=== PATIENT | female | born 1950 | race Caucasian/White ===

== ENCOUNTER 2016-12-06 15:19 | Outpatient (CLI) | payer MEDICARE, OTHER | END 2016-12-06 15:20 | disposition critical access hospital (66) | LOC: EMS 15:19 | PROVIDERS: ATTEND Surgery | DX: R53.1 Weakness (principal) | CPT/HCPCS: A0425; A0429 ==

== ENCOUNTER 2016-12-06 15:31 | Emergency (ER) | payer MEDICARE, OTHER ==
--- NOTE | 2016-12-06 15:40 | ED Physician Documentation ---
PD HPI FOCAL NEURO - Stated complaint Stated Complaint: STROKE - Chief complaint Chief Complaint: Neuro - History obtained from History obtained from: Patient, Family (Spoke with by phone at 12:04pm, was ok then. Pt states sx started 2pm. Aphasic with R sided defecits.) - Additional information Additional information: No headache or pain Review of Systems Unable to obtain: Confused PD PAST MEDICAL HISTORY - Past Medical History Cardiovascular: None Neuro: None Endocrine/Autoimmune: None GI: C.difficile, Diverticulitis : Chronic bladder infection Musculoskeletal: Chronic back pain - Past Surgical History Past Surgical History: No General: Bowel surgery - Present Medications Home Medications: Ambulatory Orders Medication Instructions Recorded Confirmed Acetaminophen 650 mg PO BID 11/08/15 11/08/15 Eszopiclone [Lunesta] 3 mg PO DAILY 11/08/15 11/08/15 Naproxen 375 mg PO BID #20 tablet 11/08/15 Ondansetron HCl [Zofran] 4 mg PO Q6H PRN #20 tablet 11/08/15 Oxycodone HCl/Acetaminophen 1 each PO Q6H PRN #20 tablet 11/08/15 [Percocet 5-325 mg Tablet] - Allergies Allergies/Adverse Reactions: Allergies Allergy/AdvReac Type Severity Reaction Status Date / Time No Known Drug Allergies Allergy Verified 11/08/15 17:14 - Social History Does the pt smoke?: No Smoking Status: Former smoker Does the pt have substance abuse?: No - Immunizations Immunizations are current?: Yes PD ED PE NORMAL - Vitals Vital signs reviewed: Yes - General General: Other (Mostly aphasic, but reliable with yes/no answers.) - HEENT HEENT: PERRL, EOMI - Neck Neck: Supple, no meningeal sign, No bony TTP - Cardiac Cardiac: RRR, No murmur - Respiratory Respiratory: No respiratory distress, Clear bilaterally - Derm Derm: Normal color, Warm and dry - Extremities Extremities: No edema, No calf tenderness / cord NIHSS - Time Time: 15:35 - Level of Consciousness Level of consciousness: (0) Alert, Keenly responsive LOC Questions: (0) Answers both Q's correct LOC Commands: (0) Performs both correctly - Gaze Best Gaze: (0) Normal - Visual Visual: (0) No loss - Facial Palsy Facial Palsy: (2) Partial paralysis - Motor Arms (both separate) Motor Arm (right): (4) No movement Motor Arm (left): (0) No drift - Motor Legs (both separate) Motor Leg (right): (1) Drift Motor Leg (left): (0) No drift - Limb Ataxia Limb Ataxia: (0) Absent - Sensory Sensory: (0) Normal - Best Language Best Language: (2) Severe aphasia - Dysarthria Dysarthria: (1) Kpiv-au-kwoqxvbb dysarthria - Extinction and Inattention (formally neg Extinction and inattention: (0) No abnormality - Total Score/Results Total Score/Result: 10 Results - Vitals Vitals: Vital Signs - 24 hr 12/06/16 12/06/16 15:31 16:15 Temperature 36.6 C Heart Rate 87 77 Respiratory 16 12 Rate Blood Pressure 133/88 H 112/81 H O2 Saturation 98 96 Oxygen O2 Source Room air - EKG (time done) 1553 Rate: Rate (enter#) (79) Rhythm: NSR [place]: LAD Intervals: Prolonged [place] Ischemia: Non specific changes Computer interpretation: Agree with computer - Labs Labs: Laboratory Tests 12/06/16 12/06/16 12/06/16 15:25 15:25 15:25 WBC 8.8 RBC 4.65 Hgb 14.0 Hct 41.1 MCV 88.4 MCH 30.2 MCHC 34.2 RDW 12.6 Plt Count 247 MPV 7.3 L Neut # 6.0 Lymph # 1.8 [place] # 0.8 Eos # 0.1 Baso # 0.1 Absolute Nucleated RBC 0.00 Nucleated RBCs 0.0 PT 11.4 INR 1.0 Sodium 139 Potassium 3.5 Chloride 107 Carbon Dioxide 25 Anion Gap 7.0 BUN 25 H Creatinine 0.5 Estimated GFR (MDRD) 123 Glucose 123 H Calcium 9.0 Total Bilirubin 0.2 AST 18 ALT 15 Alkaline Phosphatase 99 Total Protein 7.0 Albumin 3.9 Globulin 3.1 Albumin/Globulin Ratio 1.3 Lipase 24 - Rads (name of study) CT Head Radiology: Prelim report reviewed (NAD, no bleed) 1v chest Radiology: EMP read contemporaneously (normal) CT Angio Head/neck Radiology: Prelim report reviewed PD MEDICAL DECISION MAKING - ED course ED course: Patient was seen 2 and attended to immediately at bedside, she appears to have a stroke in her initial CAT scan was read as without intracranial hemorrhage. Dr. Griffin, [place] stroke was consulted and after discussion of risks and benefits the patient's nodded her head and the consented for TPA, bolus was given at [address] Griffin was considering making this patient a code IR patients and she will go back for CT angiogram of the neck. - Critical Care Time(min): 40 Time Includes: Direct patient care, Review records, Reassess patient, Document care, Coordinate care, Medical consult, Family consult for tx dec Data interpretation: Labs, Pulse ox Procedures included in critical care time: Peripheral IV Procedures excluded from critical care time: EKG Departure - Departure Disposition: 02 Transfer Acute Care Hosp Discharge Date/Time: 12/06/16 17:03
[2016-12-06] MEDS ORDERED: ALTEPLASE 100 MG in WATER FOR INJECTION,STERILE 100 ML IV STA (15:43)
[2016-12-06] MEDS ORDERED: ALTEPLASE 100 MG VIAL IV STA (15:54)
[2016-12-06] MEDS ORDERED: WATER FOR INJECTION STERILE IV STA (15:55)
[2016-12-06] MEDS ORDERED: ALTEPLASE IV STA (15:55)
[2016-12-06 16:00] LABS: BASOPHILS # (AUTO) 0.1 10^3/uL (0.0-0.1); BASOPHILS % (AUTO) 0.9 %; EOSINOPHILS # (AUTO) 0.1 10^3/uL (0.0-0.7); EOSINOPHILS % (AUTO) 1.1 %; HCT - HEMATOCRIT 41.1 % (37.0-47.0); LYMPHOCYTES # (AUTO) 1.8 10^3/uL (1.5-3.5); LYMPHOCYTES % (AUTO) 20.3 %; MEAN CORPUSCULAR HEMOGLOBIN 30.2 pg (27.0-31.0); MEAN CORPUSCULAR HGB CONC 34.2 g/dL (32.0-36.0); MEAN CORPUSCULAR VOLUME 88.4 fL (81.0-99.0); MEAN PLATELET VOLUME 7.3 fL (7.9-10.8); MONOCYTES # (AUTO) 0.8 10^3/uL (0.0-1.0); MONOCYTES % (AUTO) 9.3 %; NEUTROPHILS % (AUTO) 68.4 %; RED BLOOD COUNT 4.65 10^6/uL (4.20-5.40); RED CELL DISTRIBUTION WIDTH 12.6 % (12.0-15.0); UNCORRECTED WHITE BLOOD COUNT 8.8 x10^3/uL; WHITE BLOOD COUNT 8.8 x10^3/uL (4.8-10.8)
[2016-12-06 16:07] LABS: ALBUMIN/GLOBULIN RATIO 1.3 (1.0-2.2); BILIRUBIN,TOTAL 0.2 mg/dL (0.2-1.0); CREATININE 0.5 mg/dL (0.4-1.0); POTASSIUM 3.5 mmol/L (3.5-5.0)
--- NOTE | 2016-12-06 16:07 | CT Preliminary Report ---
Exam: CT Head W/O Stroke Protocol Impression: 1. There is no acute intracranial abnormality. 2. There is unchanged mild to moderate chronic small vessel ischemia. 3. 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 The above findings were discussed with Dr. Zuly Griffin by Dr. Rayo at 4:03 PM on 12/06/2016. SITE ID: [id number]
[2016-12-06 16:14] LABS: PT - PROTHROMBIN TIME 11.4 secs (9.9-12.6)
[2016-12-06 16:15] VITALS: BP 112/81
--- NOTE | 2016-12-06 16:16 | CT Report ---
EXAM: CT HEAD EXAM DATE: 12/06/2016 03:46 PM. CLINICAL HISTORY: Right-sided facial droop. COMPARISON: CT scan of the head without contrast 02/17/2013. TECHNIQUE: Multiaxial CT images were obtained from the foramen magnum to the vertex. IV contrast: Non e. Reformats: Coronal. In accordance with CT protocol optimization, one or more of the following dose reduction techniques w ere utilized for this exam: automated exposure control, adjustment of mA and/or KV based on patient s ize, or use of iterative reconstructive technique. FINDINGS: The paranasal sinuses are normally aerated. There is minimal fluid density within a few mastoid air c ells. There is no evidence of acute fracture of the calvarium. There is periventricular, subcortical, and deep white matter hypodensity. There is an old lacunar inf arction of the left thalamus. There is no acute collection of blood or blood products, or mass. There is no midline shift. Mcelroy-white differentiation remains distinct. There is periventricular, subcortical and deep white matter hypodensities again demonstrated within t he bilateral frontal lobes. IMPRESSION: 1. There is no acute intracranial abnormality. 2. There is unchanged mild to moderate chronic small vessel ischemia. 3. 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 The above findings from this critical test were discussed with Dr. Zuly Griffin by Dr. Rayo at the 4: 30 PM on 12/06/2016. Referring Provider Line: [phone] SITE ID: [id number]
[2016-12-06] MEDS ORDERED: IOPAMIDOL-300 100 ML VIAL IVP ONE (16:32)
--- NOTE | 2016-12-06 16:33 | XRAY Preliminary Report ---
Exam: XR Chest 1 View IMPRESSION: Normal single view chest. [facility] SITE ID: [id number]
--- NOTE | 2016-12-06 16:35 | XRAY Report ---
EXAM: CHEST RADIOGRAPHY EXAM DATE: 12/06/2016 03:48 PM. CLINICAL HISTORY: CVA. COMPARISON: None. TECHNIQUE: 1 view. FINDINGS: Lungs/Pleura: No focal opacities evident. No large pleural effusion. No pneumothorax. Mediastinum: Within exam limitations, cardiomediastinal contour is normal. Other: No bony abnormality. IMPRESSION: Normal single view chest. [facility] Referring Provider Line: [phone] SITE ID: [id number]
--- NOTE | 2016-12-06 17:19 | CT Preliminary Report ---
Exam: CT Head Angio Impression: Noncontrast CT head: 1. No acute findings, multifocal periventricular white matter disease, minimal calcific atherosclerot ic disease. New areas of subacute ischemic stroke can be missed upon old ischemic disease. Consider M RI brain if symptoms persist. Postcontrast CT head: 1. Negative. CT angiogram head: 1. Left ICA: Patent with small focal mid distal left M1 branch luminal irregularity without significa nt narrowing. This could represent small residual of prior clot post TPA. Left MCA, LEONCIO distribution otherwise patent. 2. Otherwise patent major arteries of the brain, with normal anatomical variability as described. No aneurysm, dissection, stenosis, AVM. 3. Patent major veins. CT angiogram neck: 1. Widely patent bilateral carotid, vertebral arteries. No aneurysm, dissection, stenosis, AVM 2. Multilevel advanced mid and lower cervical spine spondylosis, no suspicious bony lesions. 3. Asymmetrical enlargement left thyroid lobe 4.5 cm, with mixed density 2.6 cm nodule within the sup erior pole, can be further evaluated by ultrasound. No surrounding inflammatory change, or suspicious adenopathy. Critical findings: Findings discussed immediately with Dr. Griffin by phone on 12/06/2016 at 1658 hr s. [facility] SITE ID: [id number]
--- NOTE | 2016-12-06 17:22 | CT Report ---
REVISED: THIS REPORT WAS ORIGINALLY SIGNED ON 12/06/2016 @ 1658. ORDERS LINKED ON 12/13/2016. EXAM: CT ANGIOGRAM HEAD AND NECK EXAM DATE: 12/06/2016 04:33 PM. CLINICAL HISTORY: CVA. COMPARISON: None. TECHNIQUE: Routine axial helical CTA imaging was performed from the aortic arch through the [place] of [place]. Iodinated IV contrast: 100 cc Isovue-300. Reconstructions: Routine multiplanar 3D MIP reconstructions. NASCET Criteria are used for stenosis measurements. In accordance with CT protocol optimization, one or more of the following dose reduction techniques were utilized for this exam: automated exposure control, adjustment of mA and/or KV based on patient size, or use of iterative reconstructive technique. Findings: Relevant images are indicated (image number, series number). Noncontrast CT head: No hemorrhage, mass or midline shift. Multifocal hypodensities present bilateral internal capsule white matter, with at least moderate scattered periventricular white matter disease present. No significant cortical atrophy, ventricles are not dilated. No acute arterial thrombosis of the major intracranial arteries. Basal cisterns are patent. Orbital contents negative. Paranasal sinuses, mastoid air cells are clear. Trivial intracranial calcific atherosclerotic disease. Calvarium intact, no suspicious bony lesions. Postcontrast CT head: No abnormal enhancement of the brain, meninges. CT angiogram head: Left ICA: Patent to the terminus, small focal luminal irregularity present mid distal left M1 branch (484, 6), with no significant stenosis, otherwise patent MCA, LEONCIO distribution. Right ICA: Patent. Patent MCA, patent LEONCIO distribution. Posterior circulation: Patent distal bilateral vertebral arteries, basilar artery, patent bilateral [employer] distribution with a prominent left posterior communicating artery, minimal left P1 segment from the basilar artery. There is a small right posterior communicating artery present. Patent major draining veins, dominant right transverse venous sinus. CT antrum neck: Aortic arch is patent, normal configuration of the great vessels, no ostial stenosis. Left carotid artery: Widely patent. Right carotid artery: Widely patent. Left vertebral artery: Proximal tortuosity, widely patent. Right vertebral artery: Proximal tortuosity, widely patent. Limited evaluation lung apices are clear. Thyroid demonstrates mild asymmetrical enlargement maximum dimension 4.5 cm, with a complex mixed density nodule within the superior lobe measuring 2.6 cm. There is no surrounding suspicious adenopathy. Airway otherwise unremarkable. There is multilevel mid and lower cervical spine spondylosis, no suspicious bony lesions. The patient is partially edentulous without apical cyst. Impression: Noncontrast CT head: 1. No acute findings, multifocal periventricular white matter disease, minimal calcific atherosclerotic disease. New areas of subacute ischemic stroke can be missed upon old ischemic disease. Consider MRI brain if symptoms persist. Postcontrast CT head: 1. Negative. CT angiogram head: 1. Left ICA: Patent with small focal mid distal left M1 branch luminal irregularity without significant narrowing. This could represent small residual of prior clot post TPA. Left MCA, LEONCIO distribution otherwise patent. 2. Otherwise patent major arteries of the brain, with normal anatomical variability as described. No aneurysm, dissection, stenosis, AVM. 3. Patent major veins. CT angiogram neck: 1. Widely patent bilateral carotid, vertebral arteries. No aneurysm, dissection , stenosis, AVM 2. Multilevel advanced mid and lower cervical spine spondylosis, no suspicious bony lesions. 3. Asymmetrical enlargement left thyroid lobe 4.5 cm, with mixed density 2.6 cm nodule within the superior pole, can be further evaluated by ultrasound. No surrounding inflammatory change, or suspicious adenopathy. Critical findings: Findings discussed immediately with Dr. Griffin by phone on 12/06/2016 at 1658 hrs. [facility] Referring Provider Line: [phone] SITE ID: [id number]
== END 2016-12-06 17:03 | disposition short-term general hospital (02) ==
LOC: EDUNIT# → ED 15:31
DX: I63.9 Cerebral infarction, unspecified (principal); R47.01 Aphasia; Z87.891 Personal history of nicotine dependence
CPT/HCPCS: 36415; 70450; 70496; 70498; 71010; 80053; 83690; 85025; 85610; 93005; 96374; 96376; 99291; J2997; Q9967; 99285

== ENCOUNTER 2017-01-30 13:13 | Emergency (ER) | payer MEDICARE, OTHER ==
[2017-01-30 13:20] VITALS: BP 130/82
--- NOTE | 2017-01-30 14:52 | XRAY Preliminary Report ---
Exam: XR KNEE 4 VIEW RT IMPRESSION: Mild to moderate medial compartment chronic degenerative disease without acute fracture o r subluxation. [facility] SITE ID: [id number]
--- NOTE | 2017-01-30 14:55 | XRAY Report ---
EXAM: RIGHT KNEE RADIOGRAPHY EXAM DATE: 01/30/2017 02:30 PM. CLINICAL HISTORY: Glf, pain. COMPARISON: None. TECHNIQUE: 4 views. FINDINGS: Bones: There is mild to moderate spurring and degenerative disease of the medial compartment of the r ight knee. There is no fracture. Joints: No subluxation or dislocation. No joint effusion. There is minimal medial compartment joint s pace narrowing. Soft Tissues: Normal. No soft tissue swelling. IMPRESSION: Mild to moderate medial compartment chronic degenerative disease without acute fracture o r subluxation. [facility] Referring Provider Line: [phone] SITE ID: [id number]
--- NOTE | 2017-01-30 15:55 | ED Physician Documentation ---
PD HPI LOWER EXT INJURY - Stated complaint Stated Complaint: R KNEE INJ - Chief complaint Chief Complaint: Ext Problem - History obtained from History obtained from: Patient, Family - History of Present Illness PD HPI LOW EXT INJURY LOCATION: Right, Knee Type of injury: Fall Where injury occurred: Street Timing - onset: Yesterday Timing - duration: Days (1) Timing - details: Abrupt onset, Still present Improved by: Rest, Ice, Immobilization Worsened by: Moving, Palpating Associated symptoms: Swelling, Discolored Similar symptoms before: Has not had sx before Recently seen: Other (The patient has had 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 She is continuing to recover.) - Additional information Additional information: 66-year-old female recovering from a stroke in November has had improvement in her ability to walk and yesterday she [facility]. This is a walk she would normally have made frequently prior to her stroke and this is the first attempt she is made to do this since her stroke. She nearly made it home when she fell injuring her right knee. She does feel unstable on the knee when she is up and around but she is able to bear weight and walk. Review of Systems Constitutional: denies: Fever Nose: denies: Congestion Throat: denies: Sore throat Cardiac: denies: Chest pain / pressure Respiratory: denies: Dyspnea, Cough GI: denies: Abdominal Pain, Nausea, Vomiting : denies: Dysuria, Frequency Skin: denies: Rash Musculoskeletal: reports: Extremity pain, Joint pain, Joint swelling, Pain with weight bearing. denies: Neck pain, Back pain Neurologic: denies: Generalized weakness, Focal weakness, Numbness PD PAST MEDICAL HISTORY - Past Medical History Past Medical History: Yes Cardiovascular: None Neuro: TIA Endocrine/Autoimmune: None GI: C.difficile, Diverticulitis : Chronic bladder infection Musculoskeletal: Chronic back pain - Past Surgical History Past Surgical History: No General: Bowel surgery - Present Medications Home Medications: Ambulatory Orders Medication Instructions Recorded Confirmed Aspirin 81 mg PO DAILY 01/30/17 01/30/17 Atorvastatin [Lipitor] 20 mg PO DAILY 01/30/17 01/30/17 Zolpidem [Ambien] 5 mg PO DAILY PM 01/30/17 01/30/17 - Allergies Allergies/Adverse Reactions: Allergies Allergy/AdvReac Type Severity Reaction Status Date / Time No Known Drug Allergies Allergy Verified 01/30/17 14:45 - Social History Does the pt smoke?: No Smoking Status: Former smoker Does the pt drink ETOH?: No Does the pt have substance abuse?: No - Immunizations Immunizations are current?: Yes - POLST Patient has POLST: Yes PD ED PE NORMAL - Vitals Vital signs reviewed: Yes (tachy and hypertensive ) - General General: No acute distress, Well developed/nourished - HEENT HEENT: Atraumatic, PERRL, EOMI - Neck Neck: Supple, no meningeal sign - Respiratory Respiratory: No respiratory distress - Derm Derm: Normal color, Warm and dry, No rash - Extremities Extremities: Other (There is a fair amount of swelling and ecchymosis to the right knee. There is abrasion and the wounds appear clean. The knee is swollen and there is no restriction to flex/extend. The anterior drawer is negative but the medial collateral ligament appears violated on testing. There is clear opening and a clunk for an endpoint. Distal N/V is intact. ) - Neuro Neuro: Other (She has mild dysarthria and minimal right sided weakness in the upper ext. ) - Psych Psych: Normal mood, Normal affect Results - Vitals Vitals: Vital Signs - 24 hr 01/30/17 13:17 Temperature 37.0 C Heart Rate 108 H Respiratory 18 Rate Blood Pressure 130/82 H O2 Saturation 97 Oxygen O2 Source Room air - Rads (name of study) right knee Radiology: Prelim report reviewed (Impression: Mild to moderate medial compartment chronic degenerative disease without acute fracture or subluxation.) , EMP read indepedently, See rad report Procedures - Splint (location) l knee Splint applied by: Tech Type of splint: Other (Knee immobilizer) Other: Patient tolerated well, No complications, Neurovascular intact, Good alignment PD MEDICAL DECISION MAKING - ED course Complexity details: reviewed old records, reviewed results, re-evaluated patient , considered differential, d/w patient, d/w family ED course: 66-year-old female with recovering from stroke has had a fall injuring her right knee she appears to have medial collateral ligament avulsion. She has a lot of swelling in the she is placed into a knee immobilizer and we have asked her follow-up with orthopedic. Departure - Departure Disposition: 01 Home, Self Care Clinical Impression: Knee MCL sprain Qualifiers: Encounter type: initial encounter Laterality: right Qualified Code(s): S83.411A - Sprain of medial collateral ligament of right knee, initial encounter Condition: Stable Instructions: ED Sprain Knee Collateral Ligaments Follow-Up: RIMMA COLLINS [Primary Care Provider] - [facility] [Provider Group]
== END 2017-01-30 16:15 | disposition home or self-care (01) ==
LOC: ED 13:13
DX: S83.411A Sprain of medial collateral ligament of right knee, initial encounter (principal); W01.0XXA Fall on same level from slipping, tripping and stumbling without subsequent striking against object, initial encounter; Y93.01 Activity, walking, marching and hiking; Y92.410 Unspecified street and highway as the place of occurrence of the external cause; Z86.73 Personal history of transient ischemic attack (TIA), and cerebral infarction without residual deficits; Z87.891 Personal history of nicotine dependence; Z79.82 Long term (current) use of aspirin
CPT/HCPCS: 99283

== ENCOUNTER 2017-02-07 13:48 | Emergency (ER) | payer MEDICARE, OTHER ==
[2017-02-07 13:52] VITALS: BP 131/75
--- NOTE | 2017-02-07 14:11 | ED Physician Documentation ---
PD HPI LOWER EXT INJURY - Stated complaint Stated Complaint: WOUND CHECK - Chief complaint Chief Complaint: Ext Problem - History obtained from History obtained from: Patient, Family - History of Present Illness PD HPI LOW EXT INJURY LOCATION: Right, Knee Type of injury: Fall Where injury occurred: Street Timing - onset: How many days ago (8) Timing - duration: Days (8) Timing - details: Abrupt onset, Still present Improved by: Rest Worsened by: Moving, Palpating Associated symptoms: Swelling. No: Weakness, Numbness Similar symptoms before: Diagnosis (abrasion) Recently seen: Clinic (shalondak in clinic 3 days ago for wound care), Emergency Dept (66-year-old female Was seen in the emergency department 8 days ago after a fall and abrasion of her knee.) - Additional information Additional information: 66-year-old female has had an CVA in November of this year and received TPA she has been recovering from her stroke. 8 days ago she had a fall in the street while walking to her home and she sustained an abrasion to her knees worse on the right than the left and she sprained her right medial collateral ligament. She has developed increasing pain and redness to the knee abrasion. She did go in to be seen at a walk-in clinic over the weekend and symptoms have progressed since then. Review of Systems Constitutional: denies: Fever Respiratory: denies: Cough GI: denies: Vomiting : denies: Dysuria Skin: reports: Abrasion (s). denies: Rash Musculoskeletal: reports: Extremity pain, Joint pain, Joint swelling, Pain with weight bearing. denies: Neck pain, Back pain PD PAST MEDICAL HISTORY - Past Medical History Cardiovascular: None Neuro: TIA Endocrine/Autoimmune: None GI: C.difficile, Diverticulitis : Chronic bladder infection Musculoskeletal: Chronic back pain - Past Surgical History Past Surgical History: No General: Bowel surgery - Present Medications Home Medications: Ambulatory Orders Medication Instructions Recorded Confirmed Aspirin 81 mg PO DAILY 01/30/17 02/07/17 Atorvastatin [Lipitor] 20 mg PO DAILY 01/30/17 02/07/17 Zolpidem [Ambien] 5 mg PO DAILY PM 01/30/17 02/07/17 Sulfamethoxazole/Trimethoprim 1 each PO BID #14 tablet 02/07/17 [Sulfamethoxazole-Tmp Ds Tablet] - Allergies Allergies/Adverse Reactions: Allergies Allergy/AdvReac Type Severity Reaction Status Date / Time No Known Drug Allergies Allergy Verified 01/30/17 14:45 - Social History Does the pt smoke?: No Smoking Status: Former smoker Does the pt drink ETOH?: No Does the pt have substance abuse?: No - Immunizations Immunizations are current?: Yes - POLST Patient has POLST: Yes PD ED PE NORMAL - Vitals Vital signs reviewed: Yes (hypertensive) - General General: No acute distress, Well developed/nourished - HEENT HEENT: Atraumatic, PERRL - Respiratory Respiratory: No respiratory distress - Derm Derm: Normal color, Warm and dry - Extremities Extremities: No deformity, Other (There is a deep abrasion to the right knee over the patella and there is surrounding erythema, swelling and tenderness. There is no drainage from the wound. There is granulation tissue across a 4cm round abrasion. distal N/V intact. ) - Neuro Neuro: No motor deficit, No sensory deficit - Psych Psych: Normal mood, Normal affect Results - Vitals Vitals: Vital Signs - 24 hr 02/07/17 13:50 Temperature 36.7 C Heart Rate 63 Respiratory 16 Rate Blood Pressure 131/75 H O2 Saturation 98 Oxygen O2 Source Room air PD MEDICAL DECISION MAKING - ED course Complexity details: reviewed old records, considered differential, d/w patient, d/w family ED course: 66-year-old female with a deep abrasion to her knee that appears to be superficially infected circumferentially. We will put her on some Septra and expect improvement. I have encouraged her to return to the emergency department should she have any progression of symptoms from where this is today. Departure - Departure Disposition: 01 Home, Self Care Clinical Impression: Infected abrasion of right knee Qualifiers: Encounter type: initial encounter Qualified Code(s): S80.211A - Abrasion, right knee, initial encounter; L08.9 - Local infection of the skin and subcutaneous tissue, unspecified Condition: Stable Instructions: ED Wound Care, ED Abrasion Follow-Up: RIMMA COLLINS [Primary Care Provider] - Prescriptions: Sulfamethoxazole/Trimethoprim [Sulfamethoxazole-Tmp Ds Tablet] 1 each PO BID # 14 tablet
--- NOTE | 2017-02-09 16:07 | ED Physician Documentation ---
ED Addendum - Addendum Addendum: 02/09/17 16:07 called in, she is having a blotchy rash on her legs and concerned that this may be from the antibiotic. Advised coming in for recheck.
== END 2017-02-07 14:23 | disposition home or self-care (01) ==
LOC: ED 13:48
DX: S80.211A Abrasion, right knee, initial encounter (principal); W19.XXXA Unspecified fall, initial encounter; Y92.410 Unspecified street and highway as the place of occurrence of the external cause; R21 Rash and other nonspecific skin eruption; Z87.891 Personal history of nicotine dependence; Z86.73 Personal history of transient ischemic attack (TIA), and cerebral infarction without residual deficits
CPT/HCPCS: 99283

== ENCOUNTER 2017-02-09 16:37 | Emergency (ER) | payer MEDICARE, OTHER ==
[2017-02-09 16:50] VITALS: BP 121/87
--- NOTE | 2017-02-09 16:54 | ED Physician Documentation ---
PD HPI WOUND RECHECK - Stated complaint Stated Complaint: RASH - Chief complaint Chief Complaint: Wound - Histroy obtained from History obtained from: Patient, Family - History of Present Illness Location: Other (She scraped her right knee and was placed on sulfa 2 days ago, today developed several blotches of rash on the legs, one of them is itchy but she has no respiratory complaints. She feels like the actual area of infection is somewhat improved and she denies fever or limited range of motion.) Review of Systems Constitutional: denies: Fever, Chills Nose: denies: Rhinorrhea / runny nose, Congestion Respiratory: denies: Dyspnea, Cough GI: denies: Abdominal Pain, Nausea, Vomiting PD PAST MEDICAL HISTORY - Past Medical History Past Medical History: Yes Cardiovascular: None Neuro: CVA, TIA Endocrine/Autoimmune: None GI: C.difficile, Diverticulitis : Chronic bladder infection Musculoskeletal: Chronic back pain - Past Surgical History Past Surgical History: No General: Bowel surgery - Present Medications Home Medications: Ambulatory Orders Medication Instructions Recorded Confirmed Aspirin 81 mg PO DAILY 01/30/17 02/07/17 Atorvastatin [Lipitor] 20 mg PO DAILY 01/30/17 02/07/17 Zolpidem [Ambien] 5 mg PO DAILY PM 01/30/17 02/07/17 Sulfamethoxazole/Trimethoprim 1 each PO BID #14 tablet 02/07/17 [Sulfamethoxazole-Tmp Ds Tablet] Cephalexin [Keflex] 500 mg PO QID #30 capsule 02/09/17 - Allergies Allergies/Adverse Reactions: Allergies Allergy/AdvReac Type Severity Reaction Status Date / Time No Known Drug Allergies Allergy Verified 01/30/17 14:45 - Social History Does the pt smoke?: No Smoking Status: Former smoker Does the pt drink ETOH?: No Does the pt have substance abuse?: No - Immunizations Immunizations are current?: Yes - POLST Patient has POLST: Yes PD ED PE NORMAL - Vitals Vital signs reviewed: Yes - General General: Alert and oriented X 3, No acute distress - Extremities Extremities: Other (Healing scrapes over the right knee with mild cellulitis surrounding it, there is no significant bursal fluid and no limited range of motion. She has a few discrete hives, one on the medial left knee, one on the posterior left thigh, and one above the right knee medially.) - Neuro Neuro: Alert and oriented X 3, Normal speech - Psych Psych: Normal mood, Normal affect Results - Vitals Vitals: Vital Signs - 24 hr 02/09/17 16:47 Temperature 36.6 C Heart Rate 69 Respiratory 16 Rate Blood Pressure 121/87 H O2 Saturation 100 Oxygen O2 Source Room air Departure - Departure Disposition: 01 Home, Self Care Clinical Impression: Adverse reaction to sulfa antibiotic Infected abrasion of right knee Qualifiers: Encounter type: initial encounter Qualified Code(s): S80.211A - Abrasion, right knee, initial encounter Condition: Good Record reviewed to determine appropriate education?: Yes Instructions: ED Infec Skin Cellulitis Prescriptions: Cephalexin [Keflex] 500 mg PO QID #30 capsule Comments: Stop the sulfa antibiotic. Return if worse. Otherwise follow-up with your doctor on Sunday or Sunday. Your blood pressure was elevated today on check into the emergency department. This does not mean that you have hypertension, it is a common phenomenon to come to the emergency department and have elevated blood pressure. I recommend that she see her primary care physician within the week to have it rechecked when you are feeling better.
== END 2017-02-09 17:00 | disposition home or self-care (01) ==
LOC: ED 16:37
DX: S80.211A Abrasion, right knee, initial encounter (principal); L27.1 Localized skin eruption due to drugs and medicaments taken internally; T37.0X5A Adverse effect of sulfonamides, initial encounter; W19.XXXA Unspecified fall, initial encounter; R03.0 Elevated blood-pressure reading, without diagnosis of hypertension; Z86.73 Personal history of transient ischemic attack (TIA), and cerebral infarction without residual deficits; Z87.440 Personal history of urinary (tract) infections; Z87.891 Personal history of nicotine dependence; Z79.82 Long term (current) use of aspirin
CPT/HCPCS: 99283

== ENCOUNTER 2017-03-03 08:32 | Emergency (ER) | payer MEDICARE, OTHER ==
[2017-03-03 08:41] VITALS: BP 128/84
[2017-03-03] MEDS ORDERED: DEXAMETHASONE 10 MG/ML VIAL PO STA (08:59)
--- NOTE | 2017-03-03 09:09 | ED Physician Documentation ---
History of Present Illness - Stated complaint Stated Complaint: R ARM PX - Chief complaint Chief Complaint: Ext Problem - History obtained from History obtained from: Patient, Family - History of Present Illness Timing: How many weeks ago (1) - Additonal information Additional information: 66-year-old female who has had a CVA and received TPA in November of this year has developed right shoulder pain and restriction of movement following her stroke. She has been in physical therapy with this and has some swelling in her right hand as well. She indicates that over the past week she has had an increase in her pain and inability to move the shoulder and an increase in the pain in her hand as well. The only other symptom she is having is a cough. She has had a cough for about a week as well. She indicates that the swelling in her right hand preceded her stroke. I do see in her medical record that she had a CVA in 2012 that involved the thalamus and old lacunar infarct and this is suspected to be the etiology for some hand numbness that happened at that time. Review of Systems Constitutional: denies: Fever Eyes: denies: Decreased vision Ears: denies: Ear pain Nose: reports: Congestion Throat: denies: Sore throat Cardiac: denies: Chest pain / pressure, Palpitations Respiratory: reports: Cough. denies: Dyspnea GI: denies: Nausea, Vomiting, Constipation, Diarrhea : denies: Dysuria, Frequency Skin: denies: Rash Musculoskeletal: reports: Extremity pain, Joint pain, Extremity swelling. denies: Neck pain, Back pain Neurologic: denies: Generalized weakness PD PAST MEDICAL HISTORY - Past Medical History Cardiovascular: None Neuro: CVA, TIA Endocrine/Autoimmune: None GI: C.difficile, Diverticulitis : Chronic bladder infection Musculoskeletal: Chronic back pain - Past Surgical History Past Surgical History: No General: Bowel surgery - Present Medications Home Medications: Ambulatory Orders Medication Instructions Recorded Confirmed Aspirin 81 mg PO DAILY 01/30/17 03/03/17 Atorvastatin [Lipitor] 20 mg PO DAILY 01/30/17 03/03/17 Zolpidem [Ambien] 5 mg PO DAILY PM 01/30/17 03/03/17 Azithromycin [Zithromax] 250 mg PO DAILY #6 tablet 03/03/17 Gabapentin 300 mg PO TID 03/03/17 03/03/17 - Allergies Allergies/Adverse Reactions: Allergies Allergy/AdvReac Type Severity Reaction Status Date / Time No Known Drug Allergies Allergy Verified 01/30/17 14:45 - Social History Does the pt smoke?: No Smoking Status: Former smoker Does the pt drink ETOH?: No Does the pt have substance abuse?: No - Immunizations Immunizations are current?: Yes - POLST Patient has POLST: Yes PD ED PE NORMAL - Vitals Vital signs reviewed: Yes (hypertensive ) - General General: No acute distress, Well developed/nourished, Other (speech is further improved from last visit in January. ) - HEENT HEENT: Atraumatic, PERRL, EOMI, Other (There is inflamation in both TM's in the attic worse on the right than the left. ) - Neck Neck: Supple, no meningeal sign, No bony TTP, No adenopathy - Cardiac Cardiac: RRR, No murmur - Respiratory Respiratory: No respiratory distress, Clear bilaterally - Derm Derm: Normal color, Warm and dry, No rash - Extremities Extremities: No deformity, Other (There is mild general swelling to the right hand. Tapping on the median nerve does not illicit pain or odd sensation. The wirst and elbow are with full ROM without restriction. The paitent is able to hold the shoulder in abduction but she is not able to actively move the shoulder into full extension. ) - Neuro Neuro: Alert and oriented X 3 - Psych Psych: Normal mood, Normal affect Results - Vitals Vitals: Vital Signs - 24 hr 03/03/17 08:35 Temperature 36.7 C Heart Rate 84 Respiratory 16 Rate Blood Pressure 128/84 H O2 Saturation 98 Oxygen O2 Source Room air PD MEDICAL DECISION MAKING - ED course Complexity details: reviewed old records, reviewed results, re-evaluated patient , considered differential, d/w patient, d/w family ED course: 66-year-old female 3 months status post CVA has right shoulder pain that is worse than her usual. She has had pain in this right shoulder or months but this is worse this week than normal. The pain in her hand is worse than normal as well. Her only other symptom is a cough. On examination she has otitis media. Here in the emergency department she is given dexamethasone orally and we will place her on some antibiotic. I suspect that her increase in pain is a result of the inflammatory process related to the infection. I also suspect her swelling in her hand that preceded her stroke is related to a prior stroke and related to central nerve damage sustained in a stroke in 2013. I have indicated to the patient and her that this is the suspected reason for the increase in pain and treatment will be palliative and we have referred her to ortho for further treatment on her shoulder. Departure - Departure Disposition: 01 Home, Self Care Clinical Impression: Bursitis Qualifiers: Bursitis location: shoulder Laterality: right Qualified Code(s): M75.51 - Bursitis of right shoulder Otitis media Qualifiers: Otitis media type: suppurative Chronicity: acute Laterality: bilateral Recurrence: not specified as recurrent Spontaneous tympanic membrane rupture: without spontaneous rupture Qualified Code(s): H66.003 - Acute suppurative otitis media without spontaneous rupture of ear drum, bilateral Condition: Stable Instructions: ED Otitis Media Acute Adult, ED Bursitis Follow-Up: RIMMA COLLINS [Primary Care Provider] - [facility] [Provider Group] Prescriptions: Azithromycin [Zithromax] 250 mg PO DAILY #6 tablet
[2017-03-03] MEDS ORDERED: DEXAMETHASONE 10 MG/ML VIAL ONE (09:11)
[2017-03-03] MEDS ORDERED: CHERRY SYRUP 10 ML UDC PO ONE (09:12)
== END 2017-03-03 09:20 | disposition home or self-care (01) ==
LOC: ED 08:32
DX: M75.51 Bursitis of right shoulder (principal); H66.003 Acute suppurative otitis media without spontaneous rupture of ear drum, bilateral; Z86.73 Personal history of transient ischemic attack (TIA), and cerebral infarction without residual deficits; Z79.82 Long term (current) use of aspirin; Z87.891 Personal history of nicotine dependence
CPT/HCPCS: 99283; 99284; A9270

== ENCOUNTER 2018-01-14 07:58 | Emergency (ER) | payer MEDICARE, OTHER ==
[2018-01-14 08:55] LABS: BILIRUBIN,URINE NEGATIVE (NEGATIVE); GLUCOSE, URINE (UA) NEGATIVE (NEGATIVE); KETONES,URINE (UA) NEGATIVE (NEGATIVE); LEUKOCYTE ESTERASE, URINE SMALL (NEGATIVE); NITRITE,URINE NEGATIVE (NEGATIVE); OCCULT BLOOD,URINE NEGATIVE (NEGATIVE); PROTEIN,URINE NEGATIVE (NEGATIVE); UROBILINOGEN,URINE 0.2 (NORMAL) E.U./dL (NORMAL)
[2018-01-14 08:58] LABS: CLARITY,URINE HAZY (CLEAR)
[2018-01-14 09:04] LABS: BACTERIA,URINE Few /HPF (None Seen); RBC,URINE 0-5 /HPF (0-5); SQUAMOUS EPITHELIAL CELL,UR FEW Squamous (<= Few); WBC CLUMPS,URINE PRESENT
--- NOTE | 2018-01-14 09:32 | ED Physician Documentation ---
History of Present Illness - Stated complaint Stated Complaint: FEMALE - Chief complaint Chief Complaint: UTI - Additonal information Additional information: hx from pt 67 f dysuria no fever, no chills, no NV, mild flank pain seen at [facility] and rx macrobid for 5 days and not any better Review of Systems Constitutional: denies: Fever, Chills GI: denies: Nausea, Vomiting : reports: Dysuria Musculoskeletal: reports: Back pain Immunocompromised: denies: Immunocompromised PD PAST MEDICAL HISTORY - Past Medical History Cardiovascular: None Endocrine/Autoimmune: None GI: C.difficile, Diverticulitis : Chronic bladder infection Musculoskeletal: Chronic back pain - Past Surgical History Past Surgical History: Yes General: Bowel surgery - Present Medications Home Medications: Ambulatory Orders Medication Instructions Recorded Confirmed Aspirin 81 mg PO DAILY 01/30/17 03/03/17 Atorvastatin [Lipitor] 20 mg PO DAILY 01/30/17 03/03/17 Zolpidem [Ambien] 5 mg PO DAILY PM 01/30/17 03/03/17 Azithromycin [Zithromax] 250 mg PO DAILY #6 tablet 03/03/17 Gabapentin 300 mg PO TID 03/03/17 03/03/17 Cephalexin [Keflex] 500 mg PO Q6H #28 capsule 01/14/18 - Allergies Allergies/Adverse Reactions: Allergies Allergy/AdvReac Type Severity Reaction Status Date / Time No Known Drug Allergies Allergy Verified 01/14/18 08:17 - Social History Does the pt smoke?: No Smoking Status: Never smoker Does the pt drink ETOH?: No Does the pt have substance abuse?: No - Immunizations Immunizations are current?: Yes - POLST Patient has POLST: Yes PD ED PE NORMAL - Vitals Vital signs reviewed: Yes - General General: Alert and oriented X 3 - HEENT HEENT: PERRL - Neck Neck: Supple, no meningeal sign - Cardiac Cardiac: RRR - Respiratory Respiratory: No respiratory distress, Clear bilaterally - Abdomen Abdomen: Soft, Non tender - Back Back: No CVA TTP - Derm Derm: Normal color - Neuro Neuro: Alert and oriented X 3 Results - Vitals Vitals: Vital Signs - 24 hr 01/14/18 08:12 Temperature 36.4 C L Heart Rate 72 Respiratory 16 Rate Blood Pressure 115/74 O2 Saturation 98 Oxygen O2 Source Room air - Labs Labs: Laboratory Tests 01/14/18 08:43 Urine Color YELLOW Urine Clarity HAZY Urine pH 6.0 Ur Specific [place] 1.010 Urine Protein NEGATIVE Urine Glucose (UA) NEGATIVE Urine Ketones NEGATIVE Urine Occult Blood NEGATIVE Urine Nitrite NEGATIVE Urine Bilirubin NEGATIVE Urine Urobilinogen 0.2 (NORMAL) Ur Leukocyte Esterase SMALL H Urine RBC 0-5 Urine WBC >25 H Urine WBC Clumps PRESENT Ur Squamous Epith Cells FEW Squamous Urine Bacteria Few Ur Microscopic Review INDICATED Urine Culture Comments INDICATED PD MEDICAL DECISION MAKING - ED course ED course: called [facility] lab for micro results - they requested fax for relase of info - I transferred lab back to [facility] to arrnage that - [facility] states [facility] lab hung up will give rocephin and rx keflex and have pt call her PMD for follow up - Sepsis Event Vital Signs: Vital Signs - 24 hr 01/14/18 08:12 Temperature 36.4 C L Heart Rate 72 Respiratory 16 Rate Blood Pressure 115/74 O2 Saturation 98 Oxygen O2 Source Room air Departure - Departure Disposition: 01 Home, Self Care Clinical Impression: Urinary tract infection Qualifiers: Urinary tract infection type: acute cystitis Hematuria presence: without hematuria Qualified Code(s): N30.00 - Acute cystitis without hematuria Condition: Good Instructions: Urinary Tract Infecs Women Follow-Up: RIMMA COLLINS [Primary Care Provider] - Prescriptions: Cephalexin [Keflex] 500 mg PO Q6H #28 capsule Comments: Please call your PMD at [facility] to ask if a urine culture was done and if the antibiotic I prescribed will treat the bacteria causing your infection. Follow up with your PMD for a repeat urine test to be sure the infection has cleared. Return if worse
[2018-01-14] MEDS ORDERED: cefTRIAXone 1 GM VIAL IM STA (09:41)
[2018-01-14] MEDS ORDERED: LIDOCAINE 1% 2 ML VIAL SUBQ ONE (09:41)
[2018-01-14 10:32] VITALS: BP 126/77
== END 2018-01-14 10:31 | disposition home or self-care (01) ==
LOC: ED 07:58
DX: N30.00 Acute cystitis without hematuria (principal); Z79.82 Long term (current) use of aspirin
CPT/HCPCS: 81001; 81003; 87086; 87181; 96372; 99283

== ENCOUNTER 2018-07-29 09:42 | Emergency (ER) | payer MEDICARE, OTHER ==
--- NOTE | 2018-07-29 10:45 | XRAY Report ---
Reason: SOA Procedure Date: 07/29/2018 Accession Number: [id number] / [id number] Procedure: XR - Chest 1 View X-Ray CPT Code: 85315 FULL RESULT: EXAM: CHEST RADIOGRAPHY EXAM DATE: 07/29/2018 10:24 AM. CLINICAL HISTORY: Shortness of breath. COMPARISON: CHEST 1 VIEW 12/06/2016 3:41 PM. TECHNIQUE: 1 view. FINDINGS: Lungs/Pleura: No focal opacities evident. No pleural effusion. No pneumothorax. Mediastinum: Within exam limitations, the cardiomediastinal contour is normal. There is mild atherosclerotic calcification of the aortic arch. Other: No acute osseous abnormality. IMPRESSION: No acute cardiopulmonary abnormality. RADIA
--- NOTE | 2018-07-29 10:52 | ED Physician Documentation ---
PD HPI DYSPNEA - Stated complaint Stated Complaint: SOA - Chief complaint Chief Complaint: Resp - History obtained from History obtained from: Patient - History of Present Illness Timing - onset: How many days ago (2-3) Timing - onset during: Rest, Light activity Timing - duration: Minutes Timing - details: Gradual onset, Waxing and waning Inciting event(s): No: Out of meds (but had stopped her fluoxetine 2-3 weeks ago as she did not feel she needed it anymore.) Associated symptoms: Chest pain / discomfort. No: Fever, Cough, Wheezing, Bilateral edema Similar symptoms before: Diagnosis (anxiety) Recently seen: Not recently seen Review of Systems Constitutional: denies: Fever, Chills, Myalgias Nose: denies: Rhinorrhea / runny nose, Congestion Throat: denies: Sore throat Cardiac: reports: Chest pain / pressure. denies: Palpitations, Pedal edema, Calf pain Respiratory: reports: Dyspnea. denies: Cough, Wheezing GI: denies: Abdominal Pain, Nausea, Vomiting, Diarrhea Skin: denies: Rash, Lesions PD PAST MEDICAL HISTORY - Past Medical History Cardiovascular: None Respiratory: None Neuro: None Endocrine/Autoimmune: None GI: C.difficile, Diverticulitis : Chronic bladder infection Psych: Depression, Anxiety Musculoskeletal: Chronic back pain - Past Surgical History Past Surgical History: Yes General: Bowel surgery - Present Medications Home Medications: Ambulatory Orders Medication Instructions Recorded Confirmed Aspirin 81 mg PO DAILY 01/30/17 07/29/18 Atorvastatin [Lipitor] 20 mg PO DAILY 01/30/17 07/29/18 Zolpidem [Ambien] 5 mg PO DAILY PM 01/30/17 07/29/18 Gabapentin 300 mg PO TID 03/03/17 07/29/18 Lorazepam [Ativan] 1 mg PO BID PRN #10 tablet 07/29/18 Naproxen 375 mg PO BID #20 tablet 07/29/18 Nitrofurantoin [Macrobid] 100 mg PO DAILY 07/29/18 07/29/18 - Allergies Allergies/Adverse Reactions: Allergies Allergy/AdvReac Type Severity Reaction Status Date / Time No Known Drug Allergies Allergy Verified 07/29/18 09:49 - Social History Does the pt smoke?: No Smoking Status: Never smoker Does the pt drink ETOH?: No Does the pt have substance abuse?: No - Immunizations Immunizations are current?: Yes - POLST Patient has POLST: Yes PD ED PE NORMAL - Vitals Vital signs reviewed: Yes - General General: Alert and oriented X 3, No acute distress, Well developed/nourished - HEENT HEENT: Moist mucous membranes, Pharynx benign - Neck Neck: Supple, no meningeal sign, No adenopathy - Cardiac Cardiac: RRR, No murmur - Respiratory Respiratory: Clear bilaterally - Abdomen Abdomen: Soft, Non distended, No organomegaly, Other (tender epigastric and RUQ area without guarding nor percussion tenderness. ) - Back Back: No CVA TTP - Derm Derm: Normal color, Warm and dry - Extremities Extremities: No tenderness to palpate, Normal ROM s pain, No edema, No calf tenderness / cord - Neuro Neuro: Alert and oriented X 3, No motor deficit, Normal speech - Psych Psych: Normal mood. No: Normal affect (somewhat anxious) Results - Vitals Vitals: Oxygen O2 Source Room air - EKG (time done) 10:01 Rate: Rate (enter#) (79) Rhythm: NSR [place]: Normal Intervals: Normal MS QRS: Normal Ischemia: Normal ST segments. No: ST elevation c/w ischemia, ST depression - Labs Labs: Laboratory Tests 07/29/18 07/29/18 07/29/18 11:15 11:15 11:15 WBC 6.5 RBC 4.95 Hgb 14.9 Hct 43.6 MCV 88.0 MCH 30.1 MCHC 34.2 RDW 13.0 Plt Count 263 MPV 7.6 L Neut # (Auto) 3.3 Lymph # (Auto) 2.4 [place] # (Auto) 0.6 Eos # (Auto) 0.1 Baso # (Auto) 0.1 Absolute Nucleated RBC 0.01 Nucleated RBC % 0.1 Sodium 138 Potassium 3.8 Chloride 105 Carbon Dioxide 26 Anion Gap 7.0 BUN 20 Creatinine 0.7 Estimated GFR (MDRD) 83 L Glucose 96 Calcium 9.7 Magnesium 2.1 Total Bilirubin 0.7 AST 20 ALT 16 Alkaline Phosphatase 91 Troponin I < 0.04 B-Natriuretic Peptide Total Protein 7.4 Albumin 4.5 Globulin 3.1 Albumin/Globulin Ratio 1.5 Lipase 43 07/29/18 11:45 WBC RBC Hgb Hct MCV MCH MCHC RDW Plt Count MPV Neut # (Auto) Lymph # (Auto) [place] # (Auto) Eos # (Auto) Baso # (Auto) Absolute Nucleated RBC Nucleated RBC % Sodium Potassium Chloride Carbon Dioxide Anion Gap BUN Creatinine Estimated GFR (MDRD) Glucose Calcium Magnesium Total Bilirubin AST ALT Alkaline Phosphatase Troponin I B-Natriuretic Peptide 35 Total Protein Albumin Globulin Albumin/Globulin Ratio Lipase - Rads (name of study) chest xray Radiology: Prelim report reviewed (no acute prcoess), EMP read contemporaneously, See rad report PD MEDICAL DECISION MAKING - ED course Complexity details: considered differential, d/w patient, d/w family (, who feels it might be anxiety related, and patient had stopped her SSRI about 2 weeks ago. ) Departure - Departure Disposition: Home, Self Care Clinical Impression: Chest discomfort, Anxiety Condition: Stable Record reviewed to determine appropriate education?: Yes Instructions: ED Chest Pain Atypical Unkn Cause Follow-Up: RIMMA COLLINS [Primary Care Provider] - Prescriptions: Lorazepam [Ativan] 1 mg PO BID PRN #10 tablet PRN Reason: Anxiety Naproxen 375 mg PO BID #20 tablet Comments: There is no signs of more serious cause such as heart failure heart attack pneumonia etc. At this point it may be some musculoskeletal pains. You can use some naproxen twice daily with food over the next week or so. This can result due to anxiety. If you feel you are generally more anxious you can use lorazepam twice daily as needed short-term. If you are not feeling well improved over the next several days to week, follow-up with your primary care. If you feel you would doing better with the fluoxetine you had discontinued, and you could resume it daily as you had taken before. Discharge Date/Time: 07/29/18 14:14
[2018-07-29] MEDS ORDERED: MORPHINE 2 MG/ML CARPUJECT IVP STA (11:17)
[2018-07-29] MEDS ORDERED: LORazepam 2 MG/ML VIAL IVP STA (11:17)
[2018-07-29] MEDS ORDERED: MAG HYDROX/AL HYDROX/SIMETH 30 ML UDC PO STA (11:17)
[2018-07-29 11:31] LABS: BASOPHILS # (AUTO) 0.1 10^3/uL (0.0-0.1); BASOPHILS % (AUTO) 0.8 %; EOSINOPHILS # (AUTO) 0.1 10^3/uL (0.0-0.7); EOSINOPHILS % (AUTO) 1.5 %; HGB - HEMOGLOBIN 14.9 g/dL (12.0-16.0); LYMPHOCYTES # (AUTO) 2.4 10^3/uL (1.5-3.5); LYMPHOCYTES % (AUTO) 37.1 %; MEAN CORPUSCULAR HEMOGLOBIN 30.1 pg (27.0-31.0); MEAN CORPUSCULAR HGB CONC 34.2 g/dL (32.0-36.0); MEAN PLATELET VOLUME 7.6 fL (7.9-10.8); MONOCYTES # (AUTO) 0.6 10^3/uL (0.0-1.0); NEUTROPHILS # (AUTO) 3.3 10^3/uL (1.5-6.6); NEUTROPHILS % (AUTO) 50.6 %; PLT - PLATELET COUNT 263 10^3/uL (130-450); RED BLOOD COUNT 4.95 10^6/uL (4.20-5.40); WHITE BLOOD COUNT 6.5 x10^3/uL (4.8-10.8)
[2018-07-29 12:07] LABS: ALBUMIN 4.5 g/dL (3.2-5.5); ALBUMIN/GLOBULIN RATIO 1.5 (1.0-2.2); BILIRUBIN,TOTAL 0.7 mg/dL (0.2-1.0); CALCIUM 9.7 mg/dL (8.5-10.3); CREATININE 0.7 mg/dL (0.4-1.0); MAGNESIUM 2.1 mg/dL (1.7-2.8); TOTAL PROTEIN 7.4 g/dL (6.7-8.2)
--- NOTE | 2018-07-29 12:55 | Ultrasound Report ---
Reason: upper abd pain Procedure Date: 07/29/2018 Accession Number: [id number] / [id number] Procedure: US - Abdomen Limited CPT Code: FULL RESULT: EXAM: ABDOMEN ULTRASOUND LIMITED, RUQ EXAM DATE: 07/29/2018 12:34 PM. CLINICAL HISTORY: Upper abd pain. COMPARISON: ABD/PEL 06/05/2007 7:[address] KUB 11/08/2015 6:43 PM. TECHNIQUE: Real-time scanning was performed with static images obtained. FINDINGS: Liver: Normal in size and echotexture. The right lobe of the liver measures up to 13.7 cm. Main portal vein flow: Hepatopetal. Gallbladder: There is a gallbladder polyp measuring 3 x 3 x 3 mm. No stones, wall thickening, or sonographic Kim's sign. Biliary System: CBD measures 6 mm. No intrahepatic or extrahepatic ductal dilatation. Other: The pancreas and abdominal aorta are not well visualized due to overlying bowel gas. There are multiple small nonobstructing right renal calyceal calculi. No right hydronephrosis. IMPRESSION: 1. No cholelithiasis or cholecystitis. No biliary dilatation. 2. Incidentally noted 3 mm gallbladder polyp, almost certainly benign. No further workup recommended. Management above is based on recommendations outlined in an ACR White Paper: Jesse Ng et al. Managing Incidental Findings on Abdominal and Pelvic CT and MRI, Part 4: White Paper of the ACR Incidental Findings Committee II on Gallbladder and Biliary Findings. Journal of the [employer] 10, 953953 (2013). 3. Small nonobstructing calyceal calculi in the right kidney. No right hydronephrosis. RADIA
[2018-07-29 13:43] VITALS: BP 112/80
== END 2018-07-29 14:14 | disposition home or self-care (01) ==
LOC: ED 09:42
DX: R07.89 Other chest pain (principal); F41.9 Anxiety disorder, unspecified; Z79.82 Long term (current) use of aspirin
CPT/HCPCS: 36415; 71045; 76705; 80053; 83690; 83735; 83880; 84484; 85025; 93005; 96374; 96375; 99284; A9270; J2060

== ENCOUNTER 2019-07-28 11:26 | Emergency (ER) | payer MEDICARE, OTHER ==
[2019-07-28] MEDS ORDERED: MELOXICAM 7.5 MG TABLET PO STA (14:04)
--- NOTE | 2019-07-28 14:05 | ED Physician Documentation ---
History of Present Illness - Stated complaint Stated Complaint: RT LEG PX - Chief complaint Chief Complaint: Ext Problem - History obtained from History obtained from: Patient - History of Present Illness Timing: How many days ago (2) Pain level max: 5 Pain level now: 4 - Additonal information Additional information: 68-year-old female presents to the emergency department with right lower extremity pain in her calf for the past 2 days. Does not recall any injury. Worse with movement and better with rest. Took ibuprofen last night. [place] were too [place] and sent her here instead. No chest pain. No shortness of breath. No redness. No swelling. No history of blood clots. Review of Systems Constitutional: denies: Fever, Chills Cardiac: denies: Chest pain / pressure, Palpitations Respiratory: denies: Dyspnea, Cough Skin: denies: Rash Musculoskeletal: denies: Neck pain, Back pain Neurologic: denies: Headache PD PAST MEDICAL HISTORY - Past Medical History Cardiovascular: None Respiratory: None Neuro: None Endocrine/Autoimmune: None GI: C.difficile, Diverticulitis : Chronic bladder infection Psych: Depression, Anxiety Musculoskeletal: Chronic back pain Other Past Medical History: Stroke 2 years ago - Past Surgical History Past Surgical History: Yes General: Bowel surgery - Present Medications Home Medications: Ambulatory Orders Medication Instructions Recorded Confirmed Aspirin 81 mg PO DAILY 01/30/17 07/29/18 Atorvastatin [Lipitor] 20 mg PO DAILY 01/30/17 07/29/18 Zolpidem [Ambien] 5 mg PO DAILY PM 01/30/17 07/29/18 Gabapentin 300 mg PO TID 03/03/17 07/29/18 Lorazepam [Ativan] 1 mg PO BID PRN #10 tablet 07/29/18 Naproxen 375 mg PO BID #20 tablet 07/29/18 Nitrofurantoin [Macrobid] 100 mg PO DAILY 07/29/18 07/29/18 Meloxicam [Mobic] 7.5 mg PO BID PRN #20 tablet 07/28/19 - Allergies Allergies/Adverse Reactions: Allergies Allergy/AdvReac Type Severity Reaction Status Date / Time No Known Drug Allergies Allergy Verified 07/29/18 09:49 - Social History Does the pt smoke?: No Smoking Status: Never smoker Does the pt drink ETOH?: No Does the pt have substance abuse?: No - Immunizations Immunizations are current?: Yes - POLST Patient has POLST: Yes PD ED PE NORMAL - Vitals Vital signs reviewed: Yes - General General: Alert and oriented X 3, No acute distress - HEENT HEENT: Moist mucous membranes - Neck Neck: Supple, no meningeal sign - Cardiac Cardiac: RRR - Respiratory Respiratory: No respiratory distress, Clear bilaterally - Derm Derm: Warm and dry - Extremities Extremities: Other (Varicose veins over the bilateral lower extremities. Tenderness to palpation on the posterior right calf. Minimal swelling. Neurovascular intact. No skin changes.) - Neuro Neuro: Alert and oriented X 3 - Psych Psych: Normal mood, Normal affect Results - Vitals Vitals: Vital Signs - 24 hr 07/28/19 07/28/19 11:34 15:50 Temperature 36.6 C 36.8 C Heart Rate 85 71 Respiratory 18 18 Rate Blood Pressure 120/86 H 137/84 H O2 Saturation 97 97 Oxygen O2 Source Room air - Rads (name of study) Duplex ultrasound right lower extremity Radiology: Prelim report reviewed, EMP read contemporaneously, See rad report (No DVT) PD MEDICAL DECISION MAKING - ED course Complexity details: reviewed results, re-evaluated patient, considered differential, d/w patient ED course: Patient with right calf pain of unclear etiology. Likely muscular. No evidence of DVT. No evidence of bony injury. Patient counseled regarding signs and symptoms for which I believe and urgent re-evaluation would be necessary. Patient with good understanding of and agreement to plan and is comfortable going home at this time This document was made in part using voice recognition software. While efforts are made to proofread this document, sound alike and grammatical errors may occur. Departure - Departure Disposition: 01 Home, Self Care Clinical Impression: Leg pain Qualifiers: Laterality: right Qualified Code(s): M79.604 - Pain in right leg Condition: Good Instructions: ED Acute Pain [facility] Follow-Up: Tammy Borges ARNP [Primary Care Provider] - Within 1 week Prescriptions: Meloxicam [Mobic] 7.5 mg PO BID PRN #20 tablet PRN Reason: Pain Comments: The cause of your symptoms is unclear today. Follow-up with your doctor for further care. There is no evidence of blood clot on your ultrasound. Discharge Date/Time: 07/28/19 15:50
[2019-07-28 15:50] VITALS: BP 137/84
--- NOTE | 2019-07-28 15:51 | Ultrasound Report ---
Reason: RLE pain Procedure Date: 07/28/2019 Accession Number: [id number] / [id number] Procedure: US - Duplex Ext Veins Right CPT Code: Final Report FULL RESULT: EXAM: RIGHT LOWER EXTREMITY VENOUS ULTRASOUND EXAM DATE: 07/28/2019 03:38 PM. CLINICAL HISTORY: RLE pain. COMPARISON: None. TECHNIQUE: Real-time sonographic vascular imaging was performed by the bleach boiler puller through the lower extremity utilizing both color-flow and Doppler spectral analysis. Multiple international sales representative static images were saved for review. FINDINGS: Common Femoral Vein (CFV): Normal. CFV-GSV Junction: Normal. Profunda Femoral Vein (PFV): Normal. Femoral Vein (FV) Prox: Normal. Femoral Vein (FV) Mid: Normal. Femoral Vein (FV) Dist: Normal. Popliteal Vein: Normal. Posterior Tibial Veins: Normal. Peroneal Veins: Normal. Contralateral Side CFV: Normal. Other: None. IMPRESSION: No evidence for deep venous thrombosis in the right lower extremity. RADIA
== END 2019-07-28 15:50 | disposition home or self-care (01) ==
LOC: ED 11:26
DX: M79.661 Pain in right lower leg (principal); I83.93 Asymptomatic varicose veins of bilateral lower extremities; Z79.82 Long term (current) use of aspirin
CPT/HCPCS: 93971; 99284; A9270

== ENCOUNTER 2020-02-01 09:30 | Emergency (ER) | payer MEDICARE, OTHER ==
[2020-02-01 10:31] LABS: BILIRUBIN,URINE NEGATIVE (NEGATIVE); GLUCOSE, URINE (UA) NEGATIVE (NEGATIVE); KETONES,URINE (UA) NEGATIVE (NEGATIVE); LEUKOCYTE ESTERASE, URINE TRACE (NEGATIVE); NITRITE,URINE POSITIVE (NEGATIVE); OCCULT BLOOD,URINE MODERATE (NEGATIVE); PH,URINE 6.5 PH (5.0-7.5); PROTEIN,URINE NEGATIVE (NEGATIVE); UROBILINOGEN,URINE 0.2 (NORMAL) E.U./dL (NORMAL)
[2020-02-01 10:39] LABS: CLARITY,URINE CLEAR (CLEAR)
[2020-02-01 11:01] LABS: BACTERIA,URINE Few /HPF (None Seen); RBC,URINE 0-5 /HPF (0-5); SQUAMOUS EPITHELIAL CELL,UR FEW Squamous (<= Few)
[2020-02-01] MEDS ORDERED: LIDOCAINE 1% 2 ML VIAL MC ONE (11:09)
[2020-02-01] MEDS ORDERED: cefTRIAXone 1 GM VIAL IM STA (11:09)
--- NOTE | 2020-02-01 11:12 | ED Physician Documentation ---
PD HPI FEMALE - Stated complaint Stated Complaint: BACK PX - Chief complaint Chief Complaint: Abd Pain - History obtained from History obtained from: Patient - History of Present Illness Timing - onset: How many days ago (3) Timing - duration: Days (3) Timing - details: Gradual onset, Still present Associated symptoms: Back pain. No: Fever, Abdominal pain, Dysuria, Urinary frequency Similar symptoms before: Diagnosis (UTI) Recently seen: Not recently seen - Additional information Additional information: 69-year-old female has had a lot of problems with urinary tract infection is on Macrobid daily and she has not had an issue for about 1 year now has pain in her back consistent with what she is had previously with kidney infection. She is not having urinary symptoms and she is not having fever or nausea or vomiting. Review of Systems Constitutional: denies: Fever, Chills, Myalgias, Fatigue Nose: denies: Congestion Throat: denies: Sore throat Cardiac: denies: Chest pain / pressure, Palpitations Respiratory: denies: Dyspnea, Cough GI: denies: Abdominal Pain, Nausea, Vomiting : denies: Dysuria, Frequency Musculoskeletal: reports: Back pain. denies: Neck pain, Extremity pain PD PAST MEDICAL HISTORY - Past Medical History Cardiovascular: None Respiratory: None Neuro: None Endocrine/Autoimmune: None GI: C.difficile, Diverticulitis : Chronic bladder infection Psych: Depression, Anxiety Musculoskeletal: Chronic back pain - Past Surgical History Past Surgical History: Yes General: Bowel surgery - Present Medications Home Medications: Ambulatory Orders Medication Instructions Recorded Confirmed Aspirin 81 mg PO DAILY 01/30/17 07/29/18 Atorvastatin [Lipitor] 20 mg PO DAILY 01/30/17 07/29/18 Zolpidem [Ambien] 5 mg PO DAILY PM 01/30/17 07/29/18 Gabapentin 300 mg PO TID 03/03/17 07/29/18 Lorazepam [Ativan] 1 mg PO BID PRN #10 tablet 07/29/18 Naproxen 375 mg PO BID #20 tablet 07/29/18 Nitrofurantoin [Macrobid] 100 mg PO DAILY 07/29/18 07/29/18 Meloxicam [Mobic] 7.5 mg PO BID PRN #20 tablet 07/28/19 Cefdinir 300 mg PO BID #14 capsule 02/01/20 - Allergies Allergies/Adverse Reactions: Allergies Allergy/AdvReac Type Severity Reaction Status Date / Time No Known Drug Allergies Allergy Verified 02/01/20 09:55 - Social History Does the pt smoke?: No Smoking Status: Never smoker Does the pt drink ETOH?: No Does the pt have substance abuse?: No - Immunizations Immunizations are current?: Yes - POLST Patient has POLST: Yes PD ED PE NORMAL - Vitals Vital signs reviewed: Yes (Hypertensive mild) - General General: Alert and oriented X 3, No acute distress, Well developed/nourished - HEENT HEENT: Atraumatic, PERRL, EOMI - Neck Neck: Supple, no meningeal sign, No bony TTP - Cardiac Cardiac: RRR, No murmur - Respiratory Respiratory: No respiratory distress, Clear bilaterally - Abdomen Abdomen: Normal bowel sounds, Soft, Non tender, Non distended, No organomegaly - Back Back: No spinal TTP, Other (There is bilateral CVA tenderness to palpation.) - Derm Derm: Normal color, Warm and dry, No rash - Extremities Extremities: No deformity, No edema - Neuro Neuro: Alert and oriented X 3, canal equipment maintenance supervisor 2-12 intact, No motor deficit, No sensory deficit, Normal speech Eye Opening: Spontaneous Motor: Obeys Commands Verbal: Oriented GCS Score: 15 - Psych Psych: Normal mood, Normal affect Results - Vitals Vitals: Vital Signs - 24 hr 02/01/20 02/01/20 09:50 11:41 Temperature 36.6 C 36.4 C L Heart Rate 82 65 Respiratory 20 16 Rate Blood Pressure 121/90 H 121/93 H O2 Saturation 98 98 Oxygen O2 Source Room air - Labs Labs: Laboratory Tests 02/01/20 09:45 Urine Color YELLOW Urine Clarity CLEAR Urine pH 6.5 Ur Specific [place] 1.020 Urine Protein NEGATIVE Urine Glucose (UA) NEGATIVE Urine Ketones NEGATIVE Urine Occult Blood MODERATE H Urine Nitrite POSITIVE H Urine Bilirubin NEGATIVE Urine Urobilinogen 0.2 (NORMAL) Ur Leukocyte Esterase TRACE H Urine RBC 0-5 Urine WBC 11-25 H Ur Squamous Epith Cells FEW Squamous Urine Bacteria Few Ur Microscopic Review INDICATED Urine Culture Comments INDICATED PD MEDICAL DECISION MAKING - ED course Complexity details: reviewed old records, reviewed results, re-evaluated patient, considered differential, d/w patient ED course: 69-year-old female with chronic urinary tract infection issues has developed back pain consistent with what she has had previously with pyelonephritis and she has evidence of infection currently with a urine. She has had prior res istant infections and her prior urine cultures are reviewed and we will place the patient on some Cefdinir. She is given a dose of Rocephin here in the emergency department.She does not appear particularly ill at this time. Departure - Departure Disposition: 01 Home, Self Care Clinical Impression: Pyelonephritis Condition: Stable Instructions: ED Kidney Infec Female Follow-Up: Tammy Borges ARNP [Primary Care Provider] - Prescriptions: Cefdinir 300 mg PO BID #14 capsule Discharge Date/Time: 02/01/20 11:44
[2020-02-01 11:42] VITALS: BP 121/93
== END 2020-02-01 11:44 | disposition home or self-care (01) ==
LOC: ED 09:30
DX: N12 Tubulo-interstitial nephritis, not specified as acute or chronic (principal)
CPT/HCPCS: 81001; 81003; 87077; 87086; 87181; 96372; 99283; 99284

== ENCOUNTER 2020-03-27 10:27 | Emergency (ER) | payer MEDICARE, OTHER ==
[2020-03-27 10:50] LABS: BILIRUBIN,URINE NEGATIVE (NEGATIVE); GLUCOSE, URINE (UA) NEGATIVE (NEGATIVE); KETONES,URINE (UA) NEGATIVE (NEGATIVE); LEUKOCYTE ESTERASE, URINE TRACE (NEGATIVE); NITRITE,URINE NEGATIVE (NEGATIVE); OCCULT BLOOD,URINE MODERATE (NEGATIVE); PH,URINE 6.5 PH (5.0-7.5); PROTEIN,URINE NEGATIVE (NEGATIVE); UROBILINOGEN,URINE 0.2 (NORMAL) E.U./dL (NORMAL)
[2020-03-27 10:51] LABS: CLARITY,URINE HAZY (CLEAR)
[2020-03-27 11:00] LABS: BACTERIA,URINE Rare /HPF (None Seen); CRYSTALS,URINE 3-5 Calcium Oxalate /LPF; RBC,URINE 0-5 /HPF (0-5); SQUAMOUS EPITHELIAL CELL,UR MANY Squamous (<= Few); YEAST,URINE PRESENT
[2020-03-27] MEDS ORDERED: LIDOCAINE 1% 2 ML VIAL MC ONE (11:11)
[2020-03-27] MEDS ORDERED: cefTRIAXone 1 GM VIAL IM STA (11:11)
[2020-03-27] MEDS ORDERED: KETOROLAC 60 MG/2 ML VIAL IM STA (11:12)
--- NOTE | 2020-03-27 11:22 | ED Physician Documentation ---
PD HPI FEMALE - Stated complaint Stated Complaint: FEMALE - Chief complaint Chief Complaint: UTI - History obtained from History obtained from: Patient - History of Present Illness Timing - onset: How many days ago (3) Timing - duration: Days (3) Timing - details: Gradual onset, Still present Associated symptoms: Back pain Similar symptoms before: Diagnosis (pyelo) Recently seen: Clinic - Additional information Additional information: 69-year-old female has had an issue with frequent urinary tract infections and she was seen here in the emergency department on January 31 with pyelonephritis the specimen grew 2 organisms. At that time she was treated with ceftriaxone and cefdinir. Both organisms were sensitive but the patient felt that she may never have clear this infection. She developed yeast infection following that which was sucessfully treated with diflucan. She has developed back pain again, went back into see her primary about 10 days ago and was put on Macrobid. The seratia cultured in the specimen was not sensitive to macrobid. She does not feel the Macrobid did anything. Review of Systems Constitutional: denies: Fever, Chills Eyes: denies: Decreased vision Ears: denies: Ear pain Nose: denies: Congestion Throat: denies: Sore throat Cardiac: denies: Chest pain / pressure Respiratory: denies: Dyspnea, Cough GI: denies: Abdominal Pain, Nausea, Vomiting, Diarrhea : denies: Dysuria, Frequency, Incontinent Skin: denies: Rash Musculoskeletal: reports: Back pain. denies: Neck pain, Extremity pain Neurologic: denies: Generalized weakness, Focal weakness, Numbness PD PAST MEDICAL HISTORY - Past Medical History Cardiovascular: None Respiratory: None Neuro: None Endocrine/Autoimmune: None GI: C.difficile, Diverticulitis : Chronic bladder infection Psych: Depression, Anxiety Musculoskeletal: Chronic back pain - Past Surgical History Past Surgical History: Yes General: Bowel surgery - Present Medications Home Medications: Ambulatory Orders Medication Instructions Recorded Confirmed Aspirin 81 mg PO DAILY 01/30/17 07/29/18 Atorvastatin [Lipitor] 20 mg PO DAILY 01/30/17 07/29/18 Zolpidem [Ambien] 5 mg PO DAILY PM 01/30/17 07/29/18 Gabapentin 300 mg PO TID 03/03/17 07/29/18 Lorazepam [Ativan] 1 mg PO BID PRN #10 tablet 07/29/18 Naproxen 375 mg PO BID #20 tablet 07/29/18 Nitrofurantoin [Macrobid] 100 mg PO DAILY 07/29/18 07/29/18 Meloxicam [Mobic] 7.5 mg PO BID PRN #20 tablet 07/28/19 Cefdinir 300 mg PO BID #14 capsule 02/01/20 Cefdinir 300 mg PO BID #14 capsule 03/27/20 Fluconazole [Diflucan] 150 mg PO ONCE #2 tablet 03/27/20 - Allergies Allergies/Adverse Reactions: Allergies Allergy/AdvReac Type Severity Reaction Status Date / Time No Known Drug Allergies Allergy Verified 03/27/20 10:30 - Social History Does the pt smoke?: No Smoking Status: Never smoker Does the pt drink ETOH?: No Does the pt have substance abuse?: No - Immunizations Immunizations are current?: Yes - POLST Patient has POLST: Yes PD ED PE NORMAL - Vitals Vital signs reviewed: Yes (hypertensive) - General General: Alert and oriented X 3, No acute distress, Well developed/nourished - HEENT HEENT: Atraumatic, PERRL - Neck Neck: Supple, no meningeal sign - Respiratory Respiratory: No respiratory distress - Back Back: No spinal TTP, Other (Right CVA tenderness to bimanual palpation of the right kidney the left is not tender. ) - Derm Derm: Normal color, Warm and dry, No rash - Extremities Extremities: No deformity, No edema, No calf tenderness / cord - Neuro Neuro: Alert and oriented X 3, machine designer 2-12 intact, No motor deficit, Normal speech Eye Opening: Spontaneous Motor: Obeys Commands Verbal: Oriented GCS Score: 15 - Psych Psych: Normal mood, Normal affect Results - Vitals Vitals: Vital Signs - 24 hr 03/27/20 03/27/20 03/27/20 10:30 10:49 12:13 Temperature 36 C L 36.8 C 36.6 C Heart Rate 87 77 72 Respiratory 18 16 18 Rate Blood Pressure 140/91 H 135/94 H 145/106 H O2 Saturation 96 100 99 Oxygen O2 Source Room air - Labs Labs: Laboratory Tests 03/27/20 10:35 Urine Color YELLOW Urine Clarity HAZY Urine pH 6.5 Ur Specific [place] 1.020 Urine Protein NEGATIVE Urine Glucose (UA) NEGATIVE Urine Ketones NEGATIVE Urine Occult Blood MODERATE H Urine Nitrite NEGATIVE Urine Bilirubin NEGATIVE Urine Urobilinogen 0.2 (NORMAL) Ur Leukocyte Esterase TRACE H Urine RBC 0-5 Urine WBC 11-25 H Ur Squamous Epith Cells MANY Squamous H Urine Crystals 3-5 Calcium Oxalate Urine Bacteria Rare Urine Yeast PRESENT Ur Microscopic Review INDICATED Urine Culture Comments NOT INDICATED PD MEDICAL DECISION MAKING - ED course Complexity details: reviewed old records, reviewed results, re-evaluated patient, considered differential, d/w patient ED course: 6-year-old female with a history of frequent urinary tract infections has had resistant urines and her last course of treatment through the emergency department here should have been successful and this was 2 months ago.She gives a history of 3 days of back pain and I am a little bit confused about her timing of events with her visit to her primary and being placed on Macrobid 10 days ago. At any rate she is administered another gram of Rocephin IM as well as Toradol 60 IM [address] will place her back on Cefdinir and I will give her a prescription for Diflucan. Departure - Departure Disposition: 01 Home, Self Care Clinical Impression: Pyelonephritis Condition: Stable Instructions: ED Kidney Infec Female Follow-Up: HELEN RODRIGEZ ARNP [Primary Care Provider] - Prescriptions: Cefdinir 300 mg PO BID #14 capsule Fluconazole [Diflucan] 150 mg PO ONCE #2 tablet Discharge Date/Time: 03/27/20 12:14
[2020-03-27 12:13] VITALS: BP 145/106
== END 2020-03-27 12:14 | disposition home or self-care (01) ==
LOC: ED 10:27
DX: N12 Tubulo-interstitial nephritis, not specified as acute or chronic (principal)
CPT/HCPCS: 81001; 81003; 87086; 96372; 99283; 99284

== ENCOUNTER 2020-07-30 10:23 | Emergency (ER) | payer MEDICARE, OTHER ==
[2020-07-30 10:32] VITALS: BP 144/88
--- NOTE | 2020-07-30 11:32 | CT Report ---
PROCEDURE: HEAD WO INDICATIONS: unsteady, s/p fall with +HT no loc TECHNIQUE: Noncontrast 4.5 mm thick angled axial sections acquired from the foramen magnum to the vertex. For r adiation dose reduction, the following was used: automated exposure control, adjustment of mA and/or kV according to patient size. COMPARISON: 12/06/[address] angiogram. FINDINGS: Image quality: Excellent. CSF spaces: Basal cisterns are patent. No extra-axial fluid collections. Ventricles are normal in size and shape. Brain: No midline shift. No intracranial masses or hemorrhage. Mcelroy-white matter interface is norm al. Global cerebral volume loss and chronic vascular ischemic changes similar to the prior study. Skull and face: Calvarium and visualized facial bones are intact, without suspicious lesions. Scalp hematoma overlying the left frontal bone and left supraorbital region. Sinuses: Visualized sinuses and mastoids are clear. IMPRESSION: Scalp hematoma overlying the left frontal bone and left supraorbital region. No acute int racranial finding. Reviewed by: Leland Edwards MD on 07/30/2020 10:31 AM [facility] Approved by: Leland Edwards MD on 07/30/2020 10:31 AM [facility] Station ID: [id number]
[2020-07-30] MEDS ORDERED: ACETAMINOPHEN 325 MG TABLET PO STA (11:40)
--- NOTE | 2020-07-30 13:01 | ED Physician Documentation ---
History of Present Illness - Stated complaint Stated Complaint: HEAD INJURY - Chief complaint Chief Complaint: Heent - History obtained from History obtained from: Patient - Additonal information Additional information: 69-year-old woman with pmh hld on baby aspirin presents with mechanical fall from standing, hitting head on a cabinet without LOC just prior to arrival today. Patient states that she tripped on her slippers, falling forward and hitting her left forehead with immediate pain that since resolved gradually. She does have a left forehead hematoma but denies other injuries. denies di zziness or other symptoms. her states she was active yesterday and took a 3 mile walk. Review of Systems Ten Systems: 10 systems reviewed and negative Eyes: denies: Loss of vision Ears: denies: Loss of hearing GI: denies: Nausea, Vomiting Musculoskeletal: denies: Neck pain Neurologic: reports: Head injury. denies: Generalized weakness, Headache, LOC PD PAST MEDICAL HISTORY - Past Medical History Cardiovascular: None Respiratory: None Neuro: None Endocrine/Autoimmune: None GI: C.difficile, Diverticulitis : Chronic bladder infection Psych: Depression, Anxiety Musculoskeletal: Chronic back pain - Past Surgical History Past Surgical History: Yes General: Bowel surgery - Present Medications Home Medications: Ambulatory Orders Medication Instructions Recorded Confirmed Aspirin 81 mg PO DAILY 01/30/17 07/29/18 Atorvastatin [Lipitor] 20 mg PO DAILY 01/30/17 07/29/18 Zolpidem [Ambien] 5 mg PO DAILY PM 01/30/17 07/29/18 Gabapentin 300 mg PO TID 03/03/17 07/29/18 Nitrofurantoin [Macrobid] 100 mg PO DAILY 07/29/18 07/29/18 - Allergies Allergies/Adverse Reactions: Allergies Allergy/AdvReac Type Severity Reaction Status Date / Time No Known Drug Allergies Allergy Verified 07/30/20 10:32 - Social History Does the pt smoke?: No Smoking Status: Never smoker Does the pt drink ETOH?: No Does the pt have substance abuse?: No - Immunizations Immunizations are current?: Yes - POLST Patient has POLST: Yes PD ED PE NORMAL - Vitals Vital signs reviewed: Yes - General General: Alert and oriented X 3, No acute distress, Well developed/nourished - HEENT HEENT: Other (6cm diameter L forehead hematoma) - Neck Neck: No bony TTP, Other (FROM) - Cardiac Cardiac: RRR, Other (ribcage nontender) - Respiratory Respiratory: No respiratory distress - Abdomen Abdomen: Normal bowel sounds - Female Female : Deferred - Rectal Rectal: Deferred - Back Back: No spinal TTP - Derm Derm: Normal color, Warm and dry, Other (L periorbital ecchymosis) - Extremities Extremities: No deformity - Neuro Neuro: Alert and oriented X 3 - Psych Psych: Normal mood, Normal affect Results - Vitals Vitals: Vital Signs - 24 hr 07/30/20 10:30 Temperature 36.7 C Heart Rate 91 Respiratory 16 Rate Blood Pressure 144/88 H O2 Saturation 99 Oxygen O2 Source Room air PD MEDICAL DECISION MAKING - ED course ED course: 69-year-old woman presented with mechanical trip and fall from standing with left forehead hematoma. No apparent bleed on head CT. Discharged home with strict return precautions to follow-up with primary doctor. Departure - Departure Disposition: 01 Home, Self Care Clinical Impression: Traumatic hematoma of forehead, Fall from standing Condition: Good Instructions: Trauma Head, Falls Prevent Prepare What Do Comments: You are seen in the emergency department for a fall and for a bruise and swe lling to your forehead. Your head CT did not show any signs of brain injury. Keep an eye out for the symptoms that we discussed and return to the emergency department for any of the red flags that we went over. Return to the ED for any new or worsening symptoms or other concerns. Follow-up with your primary doctor this week.
== END 2020-07-30 13:18 | disposition home or self-care (01) ==
LOC: ED 10:23
DX: S00.83XA Contusion of other part of head, initial encounter (principal); W01.190A Fall on same level from slipping, tripping and stumbling with subsequent striking against furniture, initial encounter
CPT/HCPCS: 70450; 99282; 99284; A9270

== ENCOUNTER 2020-08-10 09:31 | Emergency (ER) | payer MEDICARE, OTHER ==
--- NOTE | 2020-08-10 10:15 | ED Physician Documentation ---
PD HPI HEAD INJURY - Stated complaint Stated Complaint: HEAD INJ - Chief complaint Chief Complaint: Heent - History obtained from History obtained from: Patient - History of Present Illness Mechanism of head injury: Fell (she had fallen and struck forehead couple weeks ago with swelling left. Has had this persistent for the time with just mild reduction in swelling. Has had bruising on forehead, around eye socket, and to leftt lower cheek. Having some doubled vision at times and also feeling lightheaded at times.), Blow Location of injury: Left, Front Quality of pain: Aching Associated symptoms: No: LOC, AMS, Neck pain Symptoms improve with: No: Rest, Ice Symptoms worsen with: Palpation. No: Movement Contributing factors: Anticoagulated Similar symptoms before: Diagnosis (hematoma with swelling that has only minimally improved over the ensuing weeks. Now with some blurred bision, diplopia looking to right.) Recently seen: Emergency Dept Review of Systems Constitutional: denies: Fever, Chills, Myalgias Ears: denies: Ear pain Nose: denies: Rhinorrhea / runny nose, Congestion Throat: denies: Sore throat Respiratory: denies: Cough PD PAST MEDICAL HISTORY - Past Medical History Cardiovascular: None Respiratory: None Neuro: None Endocrine/Autoimmune: None GI: C.difficile, Diverticulitis : Chronic bladder infection Psych: Depression, Anxiety Musculoskeletal: Chronic back pain - Past Surgical History Past Surgical History: Yes General: Bowel surgery - Present Medications Home Medications: Ambulatory Orders Medication Instructions Recorded Confirmed Aspirin 81 mg PO DAILY 01/30/17 08/10/20 Atorvastatin [Lipitor] 20 mg PO DAILY 01/30/17 08/10/20 Zolpidem [Ambien] 5 mg PO DAILY PM 01/30/17 08/10/20 Gabapentin 300 mg PO TID 03/03/17 08/10/20 Nitrofurantoin [Macrobid] 100 mg PO DAILY 07/29/18 08/10/20 - Allergies Allergies/Adverse Reactions: Allergies Allergy/AdvReac Type Severity Reaction Status Date / Time No Known Drug Allergies Allergy Verified 08/10/20 09:50 - Social History Does the pt smoke?: No Smoking Status: Never smoker Does the pt drink ETOH?: No Does the pt have substance abuse?: No - Immunizations Immunizations are current?: Yes - POLST Patient has POLST: Yes PD ED PE NORMAL - Vitals Vital signs reviewed: Yes - General General: Alert and oriented X 3, No acute distress, Well developed/nourished - HEENT HEENT: PERRL, EOMI (no states no diplopia on EOMs now. fundi appear normal. Good vision each eye. ), Other (left forehead with rounded firm area above skin level. Some green/yellow bruising present left periorbital and upper lid. No facial weakness. ) - Neck Neck: Supple, no meningeal sign, No adenopathy - Cardiac Cardiac: RRR, No murmur - Respiratory Respiratory: Clear bilaterally Results - Vitals Vitals: Vital Signs - 24 hr 08/10/20 08/10/20 08/10/20 09:42 11:22 12:36 Temperature 36.9 C 36.6 C Heart Rate 100 77 68 Respiratory 18 20 18 Rate Blood Pressure 136/95 H 121/98 H 115/67 O2 Saturation 100 95 100 Oxygen O2 Source Room air - Rads (name of study) head CT Radiology: Prelim report reviewed (no ICH nor acute process. ), See rad report orbits Radiology: Prelim report reviewed (swelling noted. frontal forehead. no fractures. no hematoma. ), See rad report PD MEDICAL DECISION MAKING - ED course Complexity details: re-evaluated patient, considered differential (concern for delayed bleed post original injury, so will repeat CT head. Also consider retro- orbital hematoma or orbital fracture leading to the diplopia, rather than periorbital edema.), d/w patient Departure - Departure Disposition: 01 Home, Self Care Clinical Impression: Binocular vision disorder with diplopia Traumatic hematoma of forehead Qualifiers: Encounter type: subsequent encounter Qualified Code(s): S00.83XD - Contusion of other part of head, subsequent encounter Condition: Stable Record reviewed to determine appropriate education?: Yes Follow-Up: HELEN RODRIGEZ ARNP [Primary Care Provider] - Farhat Dawson MD [Provider Admit Priv/Credential] - Comments: Your CT scans of the orbits and head do not show any collection of blood and a significant place. There is no bleeding or swelling notable within the brain compartment. The eye socket does not have any hematoma itself nor any fractures. Still visible is the hematoma on the forehead which obviously can be seen without CT. At this point I would give the hematoma another week or so to see how much more improvement there is with regular warm compresses 2-3 times a day for 20 minutes at a time. Call the surgery office for follow-up appointment for a week from now and if the hematoma is still persistent, they can evacuate it "surgically". At this point I would assume your vision abnormality intermittently relates to a bit of swelling around the eye socket and that should improve as further swelling goes down. I believe the feeling off balance relates to some injury from the fall and should improve with a bit more time as well. Discharge Date/Time: 08/10/20 12:43
--- NOTE | 2020-08-10 11:48 | CT Report ---
PROCEDURE: HEAD WO INDICATIONS: recent head injury; off balance the past week TECHNIQUE: Noncontrast 4.5 mm thick angled axial sections acquired from the foramen magnum to the vertex. For r adiation dose reduction, the following was used: automated exposure control, adjustment of mA and/or kV according to patient size. COMPARISON: None. FINDINGS: Image quality: Excellent. CSF spaces: Basal cisterns are patent. No extra-axial fluid collections. Ventricles are normal in size and shape. Brain: No midline shift. No intracranial masses or hemorrhage. There is a small chronic infarct wit hin the left anterior cm radiata extending into the external capsule. Mcelroy-white matter interface is normal. Skull and face: Left frontal scalp hematoma. Calvarium and visualized facial bones are intact, witho ut suspicious lesions. Sinuses: Visualized sinuses and mastoids are clear. IMPRESSION: 1. No acute intracranial abnormality. 2. Volume loss and small vessels coming disease. 3. 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 4. Left frontal scalp hematoma without evidence of underlying fracture. Reviewed by: Bruno Haddad MD on 08/10/2020 11:[address] [facility] Approved by: Bruno Haddad MD on 08/10/2020 11:[address] [facility] Station ID: [id number]
--- NOTE | 2020-08-10 11:49 | CT Report ---
PROCEDURE: ORBITS WO INDICATIONS: diplopia at times since face injury TECHNIQUE: Noncontrast 3.0 mm axial images acquired through the orbits. COMPARISON: None FINDINGS: Image quality: Excellent. Left frontal scalp hematoma is present. Orbits: Globes are symmetrical. No metallic foreign bodies. The optic nerves are normal in size. No retrobulbar masses or fat abnormalities. The extra-ocular muscles are normal and symmetrical in a ppearance. Lacrimal glands are normal in size. Optic chiasm is normal. Intracranial: Visualized portions of the cerebral hemispheres, brainstem, and spinal cord are normal . Bones and sinuses: Visualized calvarium and facial bones appear intact. Visualized sinuses and mast oids are clear. IMPRESSION: 1. Left frontal scalp hematoma. 2. No fracture. Reviewed by: Bruno Haddad MD on 08/10/2020 11:47 AM [facility] Approved by: Bruno Haddad MD on 08/10/2020 11:47 AM [facility] Station ID: [id number]
[2020-08-10 12:37] VITALS: BP 115/67
== END 2020-08-10 12:43 | disposition home or self-care (01) ==
LOC: ED 09:31
DX: H53.2 Diplopia (principal); H51.9 Unspecified disorder of binocular movement; S00.83XA Contusion of other part of head, initial encounter; W18.30XA Fall on same level, unspecified, initial encounter; Z79.82 Long term (current) use of aspirin
CPT/HCPCS: 36415; 99284

== ENCOUNTER 2020-11-26 15:19 | Emergency (ER) | payer MEDICARE, OTHER ==
[2020-11-26] MEDS ORDERED: SODIUM CHLORIDE 0.9% 1,000 ML IV STA (15:42)
[2020-11-26] MEDS ORDERED: HYDROmorphone 1 MG/ML CARPUJECT IVP STA (15:42)
--- NOTE | 2020-11-26 15:43 | ED Physician Documentation ---
PD HPI ABD PAIN - Stated complaint Stated Complaint: ABD PX,FEMALE - Chief complaint Chief Complaint: Abd Pain - History obtained from History obtained from: Patient - Additional information Additional information: 70-year-old woman with frequent UTIs was started on Cipro 3 days ago by the [employer]. She has not been able to have bowel movement last 2 days and now has severe pelvic pain radiating to the back. No fevers but she does feel hot and sweaty with chills. The new pelvic pain started today. She also has a remote history of renal colic. Review of Systems Ten Systems: 10 systems reviewed and negative Constitutional: reports: Chills Eyes: reports: Reviewed and negative Ears: reports: Reviewed and negative Nose: reports: Reviewed and negative Throat: reports: Reviewed and negative Cardiac: reports: Reviewed and negative Respiratory: reports: Reviewed and negative PD PAST MEDICAL HISTORY - Past Medical History Cardiovascular: None Respiratory: None Neuro: None Endocrine/Autoimmune: None GI: C.difficile, Diverticulitis : Chronic bladder infection Psych: Depression, Anxiety Musculoskeletal: Chronic back pain - Past Surgical History Past Surgical History: Yes General: Bowel surgery - Present Medications Home Medications: Ambulatory Orders Medication Instructions Recorded Confirmed Aspirin 81 mg PO DAILY 01/30/17 11/26/20 Zolpidem [Ambien] 5 mg PO DAILY PM 01/30/17 11/26/20 Gabapentin 300 mg PO TID 03/03/17 11/26/20 Ciprofloxacin HCl [Cipro] 500 mg PO BID 11/26/20 11/26/20 polyethylene glycoL 3350 [Miralax] 17 gm PO DAILY PRN #1 bottle 11/26/20 - Allergies Allergies/Adverse Reactions: Allergies Allergy/AdvReac Type Severity Reaction Status Date / Time No Known Drug Allergies Allergy Verified 11/26/20 15:25 - Social History Does the pt smoke?: No Smoking Status: Never smoker Does the pt drink ETOH?: No Does the pt have substance abuse?: No - Immunizations Immunizations are current?: Yes - POLST Patient has POLST: Yes PD ED PE NORMAL - Vitals Vital signs reviewed: Yes - General General: Alert and oriented X 3, No acute distress - HEENT HEENT: PERRL, EOMI - Neck Neck: Supple, no meningeal sign, No bony TTP - Cardiac Cardiac: RRR, No murmur - Respiratory Respiratory: No respiratory distress, Clear bilaterally - Abdomen Abdomen: Other (Tender to the low abdomen, no flank tenderness. No surgical signs. Extensive exploratory laparotomy scar which she says is from her hernia repair.) - Back Back: No CVA TTP, No spinal TTP - Derm Derm: Normal color, Warm and dry - Extremities Extremities: No edema, No calf tenderness / cord - Neuro Neuro: Alert and oriented X 3, Normal speech Results - Vitals Vitals: Vital Signs - 24 hr 11/26/20 15:27 Temperature 36.6 C Heart Rate 78 Respiratory 19 Rate Blood Pressure 112/72 O2 Saturation 98 Oxygen O2 Source Room air - Labs Labs: Laboratory Tests 11/26/20 11/26/20 11/26/20 15:30 15:45 16:14 WBC 6.8 RBC 4.90 Hgb 14.8 Hct 44.3 MCV 90.4 MCH 30.2 MCHC 33.4 RDW 12.1 Plt Count 254 MPV 9.2 Neut # (Auto) 3.6 Lymph # (Auto) 2.4 [place] # (Auto) 0.7 Eos # (Auto) 0.2 Baso # (Auto) 0.1 Absolute Nucleated RBC 0.00 Nucleated RBC % 0.0 Sodium 139 Potassium 3.7 Chloride 105 Carbon Dioxide 25 Anion Gap 9.0 BUN 21 H Creatinine 0.7 Estimated GFR (MDRD) 82 L Glucose 101 H Calcium 10.7 H Total Bilirubin 0.5 AST 18 ALT 18 Alkaline Phosphatase 89 Total Protein 7.5 Albumin 4.6 Globulin 2.9 Albumin/Globulin Ratio 1.6 Lipase 37 Urine Color YELLOW Urine Clarity CLEAR Urine pH 6.5 Ur Specific [place] 1.020 Urine Protein NEGATIVE Urine Glucose (UA) NEGATIVE Urine Ketones NEGATIVE Urine Occult Blood NEGATIVE Urine Nitrite NEGATIVE Urine Bilirubin NEGATIVE Urine Urobilinogen 0.2 (NORMAL) Ur Leukocyte Esterase NEGATIVE Ur Microscopic Review NOT INDICATED Urine Culture Comments NOT INDICATED - Rads (name of study) CT A/P Radiology: EMP read contemporaneously (IMPRESSION: ) PD MEDICAL DECISION MAKING - ED course ED course: Urinalysis from the [facility] obtained via records request dated November 23 at 09 30. Urinalysis demonstrated moderate blood, negative for nitrate and leukocyte esterase, 1 white cell and 3 red cells per high-powered field. No culture accompanies it. IMPRESSION: 1. Increased quantity of solid colonic and rectal stool. Consider symptomatic obstipation. 2. No evidence of small bowel obstruction. 3. 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 This is fairly stable compared to remote prior study. 4. Several bilateral nonobstructing intrarenal calculi. After the administration of magnesium citrate and an enema she had a large bowel movement and was feeling relieved. Departure - Departure Disposition: Home, Self Care Clinical Impression: Fecal impaction Constipation Qualifiers: Constipation type: slow transit constipation Qualified Code(s): K59.01 - Slow transit constipation Condition: Stable Record reviewed to determine appropriate education?: Yes Instructions: ED Constipation, ED Impaction Fecal Treated Prescriptions: polyethylene glycoL 3350 [Miralax] 17 gm PO DAILY PRN #1 bottle PRN Reason: Constipation Comments: Discontinue the ciprofloxacin. Hopefully between the enema here and the bottle of magnesium citrate you will get cleaned out, but I am also prescribing a prescription laxative if that is not enough. Return if worse or for new symptoms. [place]
--- OUTSIDE RECORDS SUMMARY | 2020-11-26 15:47 | EXTERNAL MEDICAL SUMMARY RPT | Continuity of Care Document ---
:1950 Demographics Phone Unavailable Preferred Language Unknown Marital Status Unknown Confucianist Affiliation Unknown Race Unknown Ethnic Group Unknown Author Organization [facility] Address [address] [place] [address] Phone Allergies Encounters Medications Problems Results
[2020-11-26 15:55] LABS: BASOPHILS # (AUTO) 0.1 10^3/uL (0.0-0.1); EOSINOPHILS # (AUTO) 0.2 10^3/uL (0.0-0.7); EOSINOPHILS % (AUTO) 2.2 %; HCT - HEMATOCRIT 44.3 % (37.0-47.0); HGB - HEMOGLOBIN 14.8 g/dL (12.0-16.0); LYMPHOCYTES # (AUTO) 2.4 10^3/uL (1.5-3.5); LYMPHOCYTES % (AUTO) 34.6 %; MEAN CORPUSCULAR HEMOGLOBIN 30.2 pg (27.0-31.0); MEAN CORPUSCULAR HGB CONC 33.4 g/dL (32.0-36.0); MEAN CORPUSCULAR VOLUME 90.4 fL (81.0-99.0); MEAN PLATELET VOLUME 9.2 fL (7.9-10.8); MONOCYTES # (AUTO) 0.7 10^3/uL (0.0-1.0); MONOCYTES % (AUTO) 9.9 %; NEUTROPHILS # (AUTO) 3.6 10^3/uL (1.5-6.6); NEUTROPHILS % (AUTO) 52.2 %; PLT - PLATELET COUNT 254 10^3/uL (130-450); RED CELL DISTRIBUTION WIDTH 12.1 % (12.0-15.0); WHITE BLOOD COUNT 6.8 x10^3/uL (4.8-10.8)
[2020-11-26 16:08] LABS: ALBUMIN 4.6 g/dL (3.2-5.5); ALBUMIN/GLOBULIN RATIO 1.6 (1.0-2.2); BILIRUBIN,TOTAL 0.5 mg/dL (0.2-1.0); CALCIUM 10.7 mg/dL (8.5-10.3); CREATININE 0.7 mg/dL (0.4-1.0); POTASSIUM 3.7 mmol/L (3.5-5.0); TOTAL PROTEIN 7.5 g/dL (6.7-8.2)
[2020-11-26 16:26] LABS: BILIRUBIN,URINE NEGATIVE (NEGATIVE); GLUCOSE, URINE (UA) NEGATIVE (NEGATIVE); KETONES,URINE (UA) NEGATIVE (NEGATIVE); LEUKOCYTE ESTERASE, URINE NEGATIVE (NEGATIVE); NITRITE,URINE NEGATIVE (NEGATIVE); OCCULT BLOOD,URINE NEGATIVE (NEGATIVE); PH,URINE 6.5 PH (5.0-7.5); PROTEIN,URINE NEGATIVE (NEGATIVE); UROBILINOGEN,URINE 0.2 (NORMAL) E.U./dL (NORMAL)
[2020-11-26 16:28] LABS: CLARITY,URINE CLEAR (CLEAR)
[2020-11-26] MEDS ORDERED: MAGNESIUM CITRATE 296 ML BOTTLE PO STA (16:54)
[2020-11-26] MEDS ORDERED: IOVERSOL 320 100 ML VIAL IVP ONE (17:25)
--- NOTE | 2020-11-26 17:27 | CT Report ---
PROCEDURE: Abdomen/Pelvis W INDICATIONS: pelvic pain CONTRAST: IV CONTRAST: Optiray 320 ml: 100 PO CONTRAST: *NO PO CONTRAST TECHNIQUE: After the administration of IV contrast, 5 mm thick sections acquired from the diaphragms to the symp hysis. 5 mm thick coronal and sagittal reformats were acquired. For radiation dose reduction, the f ollowing was used: automated exposure control, adjustment of mA and/or kV according to patient size. COMPARISON: None enhanced CT of the abdomen and pelvis 11/08/2015 FINDINGS: Image quality: Excellent. ABDOMEN: Lung bases: Lung bases are clear. Heart size is normal. Solid organs: Liver and spleen are normal in size and enhancement. Gallbladder appears normal. Kirk iary system is non dilated. The pancreas demonstrates moderate diffuse ductal dilatation and a 6 mm c yst in the body. A discrete obstructing mass is not visible. No adrenal nodules. Kidneys demonstrate normal size and enhancement, without hydronephrosis. There are 2 cysts in the left kidney, the large r in the lower pole measures 1.7 cm. There are several nonobstructing intrarenal calcifications bilat erally, the largest measuring 3 mm and the left kidney. No visible ureteral calcifications. Peritoneum and bowel: There is a distal colorectal anastomosis. Increased quantity of solid stool is present throughout the colon. No wall thickening or pericolonic inflammation. Small bowel is normal caliber. Bowel loops demonstrate normal wall thickness and caliber. No free fluid or air. Nodes and vessels: No retroperitoneal or mesenteric adenopathy by size criteria. Aorta and inferior vena cava are normal in size. Miscellaneous: No ventral hernias. PELVIS: Genitourinary: Bladder wall thickness is normal. The uterus is age-appropriate. The pelvic floor is lax. Miscellaneous: No inguinal hernias or adenopathy. Bones: No suspicious bony lesions. No vertebral body compression fractures. Severe degenerative di sc height loss at L5-S1. IMPRESSION: 1. Increased quantity of solid colonic and rectal stool. Consider symptomatic obstipation. 2. No evidence of small bowel obstruction. 3. 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 This is fairly stable compared to remote pr ior study. 4. Several bilateral nonobstructing intrarenal calculi. Reviewed by: Savanna Poole MD on 11/26/2020 5:26 PM PDT Approved by: Savanna Poole MD on 11/26/2020 5:26 PM PDT Station ID: [id number]
[2020-11-26 18:05] VITALS: BP 150/100
== END 2020-11-26 18:15 | disposition home or self-care (01) ==
LOC: ED 15:19
DX: K56.41 Fecal impaction (principal)
CPT/HCPCS: 36415; 74177; 80053; 81003; 83690; 85025; 96374; 99284; 99285; A9270; J1170; Q9967; 81001; 87086

== ENCOUNTER 2021-04-10 08:35 | Emergency (ER) | payer MEDICARE, OTHER ==
[2021-04-10 09:48] LABS: BASOPHILS % (AUTO) 0.5 %; EOSINOPHILS % (AUTO) 0.5 %; HCT - HEMATOCRIT 43.7 % (37.0-47.0); HGB - HEMOGLOBIN 14.1 g/dL (12.0-16.0); LYMPHOCYTES % (AUTO) 14.4 %; MEAN CORPUSCULAR HEMOGLOBIN 29.7 pg (27.0-31.0); MEAN CORPUSCULAR HGB CONC 32.3 g/dL (32.0-36.0); MEAN CORPUSCULAR VOLUME 92.2 fL (81.0-99.0); MONOCYTES # (AUTO) 0.6 10^3/uL (0.0-1.0); MONOCYTES % (AUTO) 8.6 %; NEUTROPHILS % (AUTO) 75.7 %; PLT - PLATELET COUNT 208 10^3/uL (130-450); RED BLOOD COUNT 4.74 10^6/uL (4.20-5.40); RED CELL DISTRIBUTION WIDTH 12.4 % (12.0-15.0); WHITE BLOOD COUNT 6.6 x10^3/uL (4.8-10.8)
[2021-04-10 09:59] LABS: ALBUMIN 4.2 g/dL (3.2-5.5); ALBUMIN/GLOBULIN RATIO 1.4 (1.0-2.2); BILIRUBIN,TOTAL 0.8 mg/dL (0.2-1.0); CALCIUM 9.2 mg/dL (8.5-10.3); CREATININE 0.6 mg/dL (0.4-1.0); POTASSIUM 3.9 mmol/L (3.5-5.0); TOTAL PROTEIN 7.2 g/dL (6.7-8.2)
[2021-04-10] MEDS ORDERED: KETOROLAC 30 MG/ML VIAL IVP STA (10:38)
[2021-04-10] MEDS ORDERED: HYDROcod/ACETAM 5/325 MG TABLET PO STA (10:38)
--- NOTE | 2021-04-10 11:02 | XRAY Report ---
PROCEDURE: Chest 1 View X-Ray INDICATIONS: chest pain COMMENTS: chest pain. Pt states left upper chest and abdominal pain PRIO RS: 07/29/18 TECHNIQUE: One view of the chest was acquired. COMPARISON: None FINDINGS: Surgical changes and devices: None. Lungs and pleura: No pleural effusions or pneumothorax. Lungs are clear. Mediastinum: Mediastinal contours appear normal. Heart size is normal. Bones and chest wall: No suspicious bony lesions. Overlying soft tissues appear unremarkable. IMPRESSION: No acute cardiopulmonary abnormality Reviewed by: Zurdo Amor on 04/10/2021 11:01 AM PDT Approved by: Zurdo Amor on 04/10/2021 11:01 AM PDT Station ID: [id number]
[2021-04-10] MEDS ORDERED: KETOROLAC 60 MG/2 ML VIAL IM STA (11:12)
--- NOTE | 2021-04-10 11:16 | ED Physician Documentation ---
History of Present Illness - Stated complaint Stated Complaint: abd pain - Chief complaint Chief Complaint: Abd Pain - Additonal information Additional information: Patient comes tp emergency department for chief complaint of pain of her upper abdomen and left ribs for the last 24 hours. Patient states that about 5 days ago, she was leaning over the edge of a tall garbage can to reach in and get something and the anterior left side of her ribs was pressing into the edge of the garbage can. Patient states it caused some pain, but that she felt as though that pain had gone away. Patient is otherwise felt well. She states that yesterday, she began to notice increasing pain in the area where her ribs had contacted the edge of the garbage can and that this pain is gotten worse and worse. She states that she did not sleep very well last night because it hurts so much. She states it hurts worse if she moves certain ways or presses on it. She denies any new injury. No pain in her abdomen. No pain that feels deeper in her chest. No fevers or chills. No cough or shortness of breath. No nausea or vomiting. No edema in her lower extremities. No calf pain. No other complaints at this time. She states she tried taking ibuprofen at home this does not seem to be helping. Review of Systems Ten Systems: 10 systems reviewed and negative Constitutional: reports: Reviewed and negative Eyes: reports: Reviewed and negative Ears: reports: Reviewed and negative Nose: reports: Reviewed and negative Throat: reports: Reviewed and negative Cardiac: reports: Chest pain / pressure Respiratory: reports: Reviewed and negative GI: reports: Reviewed and negative : reports: Reviewed and negative Skin: reports: Reviewed and negative Musculoskeletal: reports: Reviewed and negative Neurologic: reports: Reviewed and negative Psychiatric: reports: Reviewed and negative Endocrine: reports: Reviewed and negative Immunocompromised: reports: Reviewed and negative PD PAST MEDICAL HISTORY - Past Medical History Cardiovascular: None Respiratory: None Neuro: None Endocrine/Autoimmune: None GI: C.difficile, Diverticulitis : Chronic bladder infection Psych: Depression, Anxiety Musculoskeletal: Chronic back pain - Past Surgical History Past Surgical History: Yes General: Bowel surgery - Present Medications Home Medications: Ambulatory Orders Medication Instructions Recorded Confirmed Aspirin 81 mg PO DAILY 01/30/17 11/26/20 Zolpidem [Ambien] 5 mg PO DAILY PM 01/30/17 11/26/20 Gabapentin 300 mg PO TID 03/03/17 11/26/20 Ciprofloxacin HCl [Cipro] 500 mg PO BID 11/26/20 11/26/20 polyethylene glycoL 3350 [Miralax] 17 gm PO DAILY PRN #1 bottle 11/26/20 - Allergies Allergies/Adverse Reactions: Allergies Allergy/AdvReac Type Severity Reaction Status Date / Time sulfamethoxazole Allergy Rash Verified 04/10/21 08:43 [From Bactrim] trimethoprim [From Bactrim] Allergy Rash Verified 04/10/21 08:43 - Social History Does the pt smoke?: No Smoking Status: Never smoker Does the pt drink ETOH?: No Does the pt have substance abuse?: No - Immunizations Immunizations are current?: Yes - POLST Patient has POLST: Yes PD ED PE NORMAL - Vitals Vital signs reviewed: Yes - General General: Alert and oriented X 3, No acute distress, Well developed/nourished - HEENT HEENT: Atraumatic, PERRL, EOMI, Moist mucous membranes - Neck Neck: Supple, no meningeal sign - Cardiac Cardiac: RRR, No murmur, Strong equal pulses - Respiratory Respiratory: No respiratory distress, Clear bilaterally - Abdomen Abdomen: Soft, Non tender, Non distended - Back Back: No CVA TTP - Derm Derm: Normal color, Warm and dry, No rash - Extremities Extremities: No deformity, No edema, No calf tenderness / cord - Neuro Neuro: Alert and oriented X 3, 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 No skin changes. Tenderness extends up the height of the sternum, and is present with significance even to light touch. Slight erythema under the left breast where the bra has been rubbing. No induration or fluctuance. No soft tissue edema. Results - Vitals Vitals: Vital Signs - 24 hr 04/10/21 04/10/21 08:43 11:34 Temperature 37 C 36.5 C Heart Rate 107 H 94 Respiratory 24 12 Rate Blood Pressure 126/96 H 142/92 H O2 Saturation 97 95 Oxygen O2 Source Room air - Labs Labs: Laboratory Tests 10/24/21 10/24/21 09:42 09:42 WBC 6.6 RBC 4.74 Hgb 14.1 Hct 43.7 MCV 92.2 MCH 29.7 MCHC 32.3 RDW 12.4 Plt Count 208 MPV 9.0 Neut # (Auto) 5.0 Lymph # (Auto) 1.0 L [place] # (Auto) 0.6 Eos # (Auto) 0.0 Baso # (Auto) 0.0 Absolute Nucleated RBC 0.00 Nucleated RBC % 0.0 Sodium 141 Potassium 3.9 Chloride 106 Carbon Dioxide 26 Anion Gap 9.0 BUN 19 Creatinine 0.6 Estimated GFR (MDRD) 99 Glucose 104 H Calcium 9.2 Total Bilirubin 0.8 AST 15 ALT 13 Alkaline Phosphatase 85 Total Protein 7.2 Albumin 4.2 Globulin 3.0 Albumin/Globulin Ratio 1.4 Lipase 34 - Rads (name of study) Chest x-ray Radiology: Final report received, EMP read indepedently, See rad report (neg) PD MEDICAL DECISION MAKING - ED course Complexity details: reviewed results, re-evaluated patient, considered differential, d/w patient ED course: Patient was treated symptomatically in the emergency department. Labs and chest x-ray were unremarkable. I feel the patient was stable for discharge home. Her pain was quite clearly musculoskeletal in nature and was reproducible with palpation of the chest wall. We have discussed home management and symptoms, as well as the usual indications for return. Departure - Departure Disposition: 01 Home, Self Care Clinical Impression: Chest wall pain Condition: Stable Instructions: ED Contusion Chest Wall Comments: Your labs and chest x-ray look good. There is no evidence of a serious cause of your pain. Most likely, you have strained or bruised the chest wall. This should get better on its own in time. You may use ice and ibuprofen or Tylenol to help with the discomfort. Please follow-up with your primary care physician if you are not feeling better by the end of the week. Discharge Date/Time: 04/10/21 11:42
[2021-04-10 11:35] VITALS: BP 142/92
== END 2021-04-10 11:42 | disposition home or self-care (01) ==
LOC: ED 08:35
DX: R07.89 Other chest pain (principal); Z79.82 Long term (current) use of aspirin; Z79.899 Other long term (current) drug therapy
CPT/HCPCS: 36415; 71045; 80053; 83690; 85025; 96372; 99284; A9270

== ENCOUNTER 2021-09-18 07:27 | Emergency (ER) | payer MEDICARE, OTHER ==
[2021-09-18 07:53] LABS: BILIRUBIN,URINE NEGATIVE (NEGATIVE); GLUCOSE, URINE (UA) NEGATIVE (NEGATIVE); KETONES,URINE (UA) NEGATIVE (NEGATIVE); LEUKOCYTE ESTERASE, URINE TRACE (NEGATIVE); NITRITE,URINE POSITIVE (NEGATIVE); OCCULT BLOOD,URINE NEGATIVE (NEGATIVE); PH,URINE 6.5 PH (5.0-7.5); PROTEIN,URINE NEGATIVE (NEGATIVE); UROBILINOGEN,URINE 0.2 (NORMAL) E.U./dL (NORMAL)
[2021-09-18 07:54] LABS: CLARITY,URINE CLEAR (CLEAR)
[2021-09-18] MEDS ORDERED: cefTRIAXone 1 GM VIAL IM STA (07:54)
[2021-09-18] MEDS ORDERED: LIDOCAINE 1% 2 ML VIAL MC ONE (07:54)
--- NOTE | 2021-09-18 07:56 | ED Physician Documentation ---
PD HPI FEMALE - Stated complaint Stated Complaint: FEMALE - Chief complaint Chief Complaint: Abd Pain - History obtained from History obtained from: Patient - History of Present Illness Timing - onset: How many days ago (3) Timing - duration: Days (3) Timing - details: Gradual onset, Still present Associated symptoms: Back pain, Dysuria, Urinary frequency, Hematuria Similar symptoms before: Diagnosis (pyelonephritis) Recently seen: Clinic - Additional information Additional information: 70-year-old Ema Tamayo has had a problem for years with recurrent urinary tract infection. She has at least 4 infections per year and she has had Pyelo a number of times. She has been in to see the urologist without specific findings. She has an appointment to see the urologist again this week. She has developed symptoms 3 days ago with urinary urgency frequency dysuria and hematuria she has developed back pain overnight she has not had vomiting or fever. Review of Systems Constitutional: reports: Fatigue. denies: Fever, Chills Eyes: denies: Decreased vision Ears: denies: Ear pain Nose: denies: Rhinorrhea / runny nose, Congestion Throat: denies: Sore throat Cardiac: denies: Chest pain / pressure, Palpitations Respiratory: denies: Dyspnea, Cough GI: denies: Abdominal Pain, Nausea, Vomiting, Constipation, Diarrhea : reports: Dysuria, Frequency, Hematuria Skin: denies: Rash Musculoskeletal: reports: Back pain. denies: Neck pain, Extremity pain PD PAST MEDICAL HISTORY - Past Medical History Cardiovascular: None Respiratory: None Neuro: None Endocrine/Autoimmune: None GI: C.difficile, Diverticulitis : Chronic bladder infection Psych: Depression, Anxiety Musculoskeletal: Chronic back pain - Past Surgical History Past Surgical History: Yes General: Bowel surgery - Present Medications Home Medications: Ambulatory Orders Medication Instructions Recorded Confirmed Aspirin 81 mg PO DAILY 01/30/17 09/18/21 Gabapentin 600 mg PO QPM 03/03/17 09/18/21 Atorvastatin [Lipitor] 20 mg PO DAILY 09/18/21 09/18/21 Cefdinir 300 mg PO BID #14 cap 09/18/21 Fluconazole [Diflucan] 1 tablet PO ONCE 1 Days #2 tablet 09/18/21 Zolpidem Tartrate [Zolpidem 1 cap PO QPM 09/18/21 09/18/21 Tartrate ER] Zolpidem [Ambien] 10 mg PO HS PRN #2 tablet 09/18/21 - Allergies Allergies/Adverse Reactions: Allergies Allergy/AdvReac Type Severity Reaction Status Date / Time sulfamethoxazole Allergy Rash Verified 09/18/21 07:31 [From Bactrim] trimethoprim [From Bactrim] Allergy Rash Verified 09/18/21 07:31 - Social History Does the pt smoke?: No Smoking Status: Never smoker Does the pt drink ETOH?: No Does the pt have substance abuse?: No - Immunizations Immunizations are current?: Yes - POLST Patient has POLST: Yes PD ED PE NORMAL - Vitals Vital signs reviewed: Yes (hypertensive ) - General General: Alert and oriented X 3, No acute distress, Well developed/nourished - HEENT HEENT: Atraumatic, PERRL, EOMI - Neck Neck: Supple, no meningeal sign, No bony TTP - Cardiac Cardiac: RRR, No murmur - Respiratory Respiratory: No respiratory distress, Clear bilaterally - Abdomen Abdomen: Normal bowel sounds, Soft, Non tender, Non distended, No organomegaly - Back Back: No spinal TTP, Other (right CVA tenderness. Pain in present on the left but not tender. 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, No motor deficit, No sensory deficit, Normal speech Eye Opening: Spontaneous Motor: Obeys Commands Verbal: Oriented GCS Score: 15 - Psych Psych: Normal mood, Normal affect Results - Vitals Vitals: Vital Signs - 24 hr 09/18/21 07:34 Temperature 36.3 C L Heart Rate 73 Respiratory 19 Rate Blood Pressure 148/101 H O2 Saturation 98 Oxygen O2 Source Room air - Labs Labs: Laboratory Tests 09/18/21 09/18/21 09/18/21 07:45 08:11 08:11 WBC 4.8 RBC 4.57 Hgb 14.0 Hct 41.3 MCV 90.4 MCH 30.6 MCHC 33.9 RDW 12.3 Plt Count 219 MPV 8.9 Neut # (Auto) 2.3 Lymph # (Auto) 1.9 Waller # (Auto) 0.5 Eos # (Auto) 0.1 Baso # (Auto) 0.0 Absolute Nucleated RBC 0.00 Nucleated RBC % 0.0 Sodium 137 Potassium 3.7 Chloride 103 Carbon Dioxide 24 Anion Gap 10.0 BUN 21 H Creatinine 0.5 Estimated GFR (MDRD) 122 Glucose 101 H Calcium 9.7 Total Bilirubin 0.7 AST 15 ALT 14 Alkaline Phosphatase 80 Total Protein 7.1 Albumin 4.2 Globulin 2.9 Albumin/Globulin Ratio 1.4 Lipase 37 Urine Color YELLOW Urine Clarity CLEAR Urine pH 6.5 Ur Specific Alvo 1.020 Urine Protein NEGATIVE Urine Glucose (UA) NEGATIVE Urine Ketones NEGATIVE Urine Occult Blood NEGATIVE Urine Nitrite POSITIVE H Urine Bilirubin NEGATIVE Urine Urobilinogen 0.2 (NORMAL) Ur Leukocyte Esterase TRACE H Urine RBC 0-5 Urine WBC 11-25 H Ur Squamous Epith Cells MOD Squamous H Urine Crystals 6-10 Calcium Oxalate Amorphous Sediment Few Urine Bacteria Few Ur Microscopic Review INDICATED Urine Culture Comments NOT INDICATED PD MEDICAL DECISION MAKING - ED course Complexity details: reviewed results, re-evaluated patient, considered differential, d/w patient ED course: 70-year-old female with recurrent pyelonephritis. Patient does not appear acutely ill. She does have right flank pain. Today her urine had to many squamous cells for culture. We have already administered Rocephin and a second specimen is not obtained. Unfortunately we will not get sensitivities for this organism. She does have follow-up with a urologist this week. We will place her back on 2 cefdinir and give her Diflucan as well Departure - Departure Disposition: 01 Home, Self Care Clinical Impression: Pyelonephritis Condition: Stable Instructions: ED Kidney Infec Female Follow-Up: HELEN RODRIGEZ ARNP [Primary Care Provider] - Prescriptions: Zolpidem [Ambien] 10 mg PO HS PRN #2 tablet PRN Reason: Insomnia Cefdinir 300 mg PO BID #14 cap Fluconazole [Diflucan] 1 tablet PO ONCE 1 Days #2 tablet Comments: Ema, today it looks like you have another kidney infection. We have given you a shot of Rocephin which should be good at high concentration for about a day. I have prescribed some cefdinir for you to take for a week and it has been E scribed to [facility] in [place]. In addition I have E scribed some Diflucan in case you develop yeast with the antibiotic and some zolpidem as requested for sleep. Follow-up with your urologist as planned.
[2021-09-18 08:05] LABS: AMORPHOUS SEDIMENT,UR Few /LPF; BACTERIA,URINE Few /HPF (None Seen); CRYSTALS,URINE 6-10 Calcium Oxalate /LPF; RBC,URINE 0-5 /HPF (0-5); SQUAMOUS EPITHELIAL CELL,UR MOD Squamous (<= Few)
[2021-09-18 08:16] LABS: BASOPHILS % (AUTO) 0.6 %; EOSINOPHILS # (AUTO) 0.1 10^3/uL (0.0-0.7); EOSINOPHILS % (AUTO) 2.5 %; HCT - HEMATOCRIT 41.3 % (37.0-47.0); LYMPHOCYTES # (AUTO) 1.9 10^3/uL (1.5-3.5); LYMPHOCYTES % (AUTO) 38.5 %; MEAN CORPUSCULAR HEMOGLOBIN 30.6 pg (27.0-31.0); MEAN CORPUSCULAR HGB CONC 33.9 g/dL (32.0-36.0); MEAN CORPUSCULAR VOLUME 90.4 fL (81.0-99.0); MEAN PLATELET VOLUME 8.9 fL (7.9-10.8); MONOCYTES # (AUTO) 0.5 10^3/uL (0.0-1.0); MONOCYTES % (AUTO) 10.6 %; NEUTROPHILS # (AUTO) 2.3 10^3/uL (1.5-6.6); NEUTROPHILS % (AUTO) 47.6 %; PLT - PLATELET COUNT 219 10^3/uL (130-450); RED BLOOD COUNT 4.57 10^6/uL (4.20-5.40); RED CELL DISTRIBUTION WIDTH 12.3 % (12.0-15.0); WHITE BLOOD COUNT 4.8 x10^3/uL (4.8-10.8)
[2021-09-18 08:27] LABS: ALBUMIN 4.2 g/dL (3.2-5.5); BILIRUBIN,TOTAL 0.7 mg/dL (0.2-1.0); CALCIUM 9.7 mg/dL (8.5-10.3); CREATININE 0.5 mg/dL (0.4-1.0); POTASSIUM 3.7 mmol/L (3.5-5.0); TOTAL PROTEIN 7.1 g/dL (6.7-8.2)
[2021-09-18 08:28] LABS: ALBUMIN/GLOBULIN RATIO 1.4 (1.0-2.2)
[2021-09-18] MEDS ORDERED: KETOROLAC 60 MG/2 ML VIAL IM STA (08:44)
[2021-09-18 08:56] VITALS: BP 139/78
== END 2021-09-18 08:57 | disposition home or self-care (01) ==
LOC: ED 07:27
DX: N12 Tubulo-interstitial nephritis, not specified as acute or chronic (principal)
CPT/HCPCS: 36415; 80053; 81001; 81003; 83690; 85025; 87086; 96372; 99283

== ENCOUNTER 2021-10-01 08:19 | Emergency (ER) | payer MEDICARE, OTHER ==
[2021-10-01 08:31] VITALS: BP 138/86
--- NOTE | 2021-10-01 09:36 | ED Physician Documentation ---
PD HPI FOCAL NEURO - Stated complaint Stated Complaint: RT EYE DROOPING - Chief complaint Chief Complaint: Neuro - History obtained from History obtained from: Patient - History of Present Illness Timing - onset: How many weeks ago (2) Timing - duration: Weeks (2) Timing - details: Still present (She states she had some swelling of the upper right eyelid laterally 2 weeks ago. The swelling improved but she is left with some sagging of the upper eyelid in the lateral aspect. It partly gets in the way of her vision. She denies visual loss.), Other (She called her primary care office and was referred to the ER for concern of stroke due to "drooping eyelid".) Weakness: No: Face, Arm, Leg Numbness: No: Face, Arm, Leg Associated symptoms: No: Headache, Nausea / vomiting Contributing factors: negative: Anticoagulated Baseline status: positive: A&OX3, ambulatory, indep Recently seen: Emergency Dept (Seen 2 weeks ago for dysuria and diagnosed with UTI. On antibiotics and symptoms improved.) Review of Systems Constitutional: denies: Fever, Chills Eyes: denies: Loss of vision, Photophobia, Discharge Nose: denies: Rhinorrhea / runny nose, Congestion Throat: denies: Sore throat Neurologic: denies: Focal weakness, Numbness, Difficulty speaking, Altered m ental status, Headache PD PAST MEDICAL HISTORY - Past Medical History Cardiovascular: None Respiratory: None Neuro: None Endocrine/Autoimmune: None GI: C.difficile, Diverticulitis : Chronic bladder infection Psych: Depression, Anxiety Musculoskeletal: Chronic back pain - Past Surgical History Past Surgical History: Yes General: Bowel surgery - Present Medications Home Medications: Ambulatory Orders Medication Instructions Recorded Confirmed Aspirin 81 mg PO DAILY 01/30/17 10/01/21 Gabapentin 600 mg PO QPM 03/03/17 10/01/21 Atorvastatin [Lipitor] 20 mg PO DAILY 09/18/21 10/01/21 Fluconazole [Diflucan] 1 tablet PO ONCE 1 Days #2 tablet 09/18/21 10/01/21 Zolpidem Tartrate [Zolpidem 1 cap PO QPM 09/18/21 10/01/21 Tartrate ER] Zolpidem [Ambien] 10 mg PO HS PRN #2 tablet 09/18/21 10/01/21 - Allergies Allergies/Adverse Reactions: Allergies Allergy/AdvReac Type Severity Reaction Status Date / Time sulfamethoxazole Allergy Rash Verified 10/01/21 08:27 [From Bactrim] trimethoprim [From Bactrim] Allergy Rash Verified 10/01/21 08:27 - Social History Does the pt smoke?: No Smoking Status: Never smoker Does the pt drink ETOH?: No Does the pt have substance abuse?: No - Immunizations Immunizations are current?: Yes - POLST Patient has POLST: Yes PD ED PE NORMAL - Vitals Vital signs reviewed: Yes - General General: Alert and oriented X 3, No acute distress, Well developed/nourished - HEENT HEENT: PERRL, EOMI, Other (The right upper eyelid is without tenderness or redness. There appears to be some stretched or more prominent tissue of the upper eyelid that is sagging partly into the upper outer portion of her eye. This gives the impression of some sagging. 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, No motor deficit, No sensory deficit, Normal speech NIHSS - Level of Consciousness Level of consciousness: (0) Alert, Keenly responsive LOC Questions: (0) Answers both Q's correct LOC Commands: (0) Performs both correctly - Gaze Best Gaze: (0) Normal - Visual Visual: (0) No loss - Facial Palsy Facial Palsy: (0) Normal, symmetrical movement - Motor Arms (both separate) Motor Arm (right): (0) No drift Motor Arm (left): (0) No drift - Motor Legs (both separate) Motor Leg (right): (0) No drift Motor Leg (left): (0) No drift - Limb Ataxia Limb Ataxia: (0) Absent - Sensory Sensory: (0) Normal - Best Language Best Language: (0) No aphasia - Dysarthria Dysarthria: (0) Normal - Extinction and Inattention (formally neg Extinction and inattention: (0) No abnormality - Total Score/Results Total Score/Result: 0 Results - Vitals Vitals: Vital Signs - 24 hr 10/01/21 10/01/21 08:28 09:30 Temperature 36.6 C Heart Rate 88 82 Respiratory 18 16 Rate Blood Pressure 138/86 H 138/86 H O2 Saturation 99 100 Oxygen O2 Source Room air PD MEDICAL DECISION MAKING - ED course Complexity details: considered differential (The patient had had swelling of the upper eyelid by her description that improved and has had sagging of the eyelid tissue since that time. She called her primary care who referred her to the ER to evaluate for stroke. This does not look like a stroke but sagging of eyelid tissue. no other deficit), d/w patient Departure - Departure Disposition: 01 Home, Self Care Clinical Impression: Swelling of eyelid Qualifiers: Laterality: right Qualified Code(s): H02.843 - Edema of right eye, unspecified eyelid Condition: Stable Record reviewed to determine appropriate education?: Yes Follow-Up: HELEN RODRIGEZ ARNP [Primary Care Provider] - [facility] [Provider Group] Comments: Your symptoms do not appear related to stroke or facial nerve process. It seems like some swelling of the upper eyelid with an outstretched tissue that is "hanging" in the way. I would suggest following up with your literacy tutor that you have seen in the past, would be vision care in [place]. Call on Sunday for follow-up to have them ensure there are no eye processes going on. You may have had some inflammation of the tear gland that stretch the skin. At this point it just seems to be stretched skin. Follow-up with the literacy tutor to ensure no other problems going on around the eye. At that point it would be seeing if this skin improves but otherwise may be a matter seen dermatology or plastic surgeon about the skin. Discharge Date/Time: 10/01/21 10:20
== END 2021-10-01 10:20 | disposition home or self-care (01) ==
LOC: ED 08:19
DX: H02.401 Unspecified ptosis of right eyelid (principal); H02.843 Edema of right eye, unspecified eyelid
CPT/HCPCS: 99282; 99283

== ENCOUNTER 2022-02-15 08:00 | Outpatient (CLI) | payer MEDICARE, OTHER | END 2022-02-15 23:59 | disposition home or self-care (01) | LOC: LAB.N 08:00 | PROVIDERS: ATTEND Family Medicine | DX: R82.90 Unspecified abnormal findings in urine (principal) | CPT/HCPCS: 87077; 87086; 87181 ==

== ENCOUNTER 2022-03-10 09:22 | Outpatient (CLI) | payer MEDICARE, OTHER ==
--- NOTE | 2022-03-13 09:00 | Mammography Report ---
BILATERAL DIGITAL SCREENING MAMMOGRAM 3D/2D: 03/10/2022 CLINICAL: Routine screening. No prior exams were available for comparison. Both breasts are almost entirely fatty (category a/<25% glandular tissue). There is an oval asymmetry in the right breast at 7 o'clock anterior depth. There is a focal asymmetry in the left breast at 1 o'clock anterior depth. There also is a benign skin calcification in the left breast at 6 o'clock middle depth. No other significant masses or calcifications are seen in either breast. IMPRESSION: INCOMPLETE: NEEDS ADDITIONAL IMAGING EVALUATION The oval asymmetry in the right breast at 7 o'clock anterior depth is indeterminate. Additional view s with possible ultrasound are recommended. The focal asymmetry in the left breast at 1 o'clock anterior depth most likely is fibroglandular tiss ue and is indeterminate. Additional views with possible ultrasound are recommended. Based on the Tyrer Cuzick model (a risk assessment model) the patients lifetime risk is 3.1% and her 10 year risk is 2.3%. According to the ACR, ACS, and NCCN guidelines, an annual breast MRI exam emma g with mammogram is recommended if the patients lifetime risk is 20% or greater. This exam was interpreted at Station ID: [id number]. NOTE: For mammograms, a report in lay terms will be sent to the patient. Approximately 15% of breast malignancies will not be visualized mammographically. In the management of a palpable breast mass, a negative mammogram must not discourage biopsy of a clinically suspicious lesion. Electronically Signed By: Zurdo Amor acr/:03/10/2022 13:41:19 ACR BI-RADS Category 0: Incomplete 3340F PARENCHYMAL PATTERN: (F) - The breast(s) demonstrate(s) diffuse fatty replacement. BI-RADS CATEGORY: (0) - 0 Mammo and [place] [id number] Immediate follow-up LATERALITY: (B)
== END 2022-03-10 09:23 | disposition home or self-care (01) ==
LOC: DI 09:22
DX: Z12.31 Encounter for screening mammogram for malignant neoplasm of breast (principal); R92.8 Other abnormal and inconclusive findings on diagnostic imaging of breast

== ENCOUNTER 2022-07-17 08:41 | Emergency (ER) | payer MEDICARE, OTHER ==
[2022-07-17 09:14] LABS: BASOPHILS % (AUTO) 0.5 %; EOSINOPHILS # (AUTO) 0.1 10^3/uL (0.0-0.7); HCT - HEMATOCRIT 45.3 % (37.0-47.0); HGB - HEMOGLOBIN 14.4 g/dL (12.0-16.0); LYMPHOCYTES # (AUTO) 2.1 10^3/uL (1.5-3.5); LYMPHOCYTES % (AUTO) 35.1 %; MEAN CORPUSCULAR HEMOGLOBIN 29.4 pg (27.0-31.0); MEAN CORPUSCULAR HGB CONC 31.8 g/dL (32.0-36.0); MEAN CORPUSCULAR VOLUME 92.6 fL (81.0-99.0); MEAN PLATELET VOLUME 9.2 fL (7.9-10.8); MONOCYTES # (AUTO) 0.5 10^3/uL (0.0-1.0); MONOCYTES % (AUTO) 8.8 %; NEUTROPHILS # (AUTO) 3.2 10^3/uL (1.5-6.6); NEUTROPHILS % (AUTO) 53.6 %; PLT - PLATELET COUNT 234 10^3/uL (130-450); RED BLOOD COUNT 4.89 10^6/uL (4.20-5.40); RED CELL DISTRIBUTION WIDTH 12.6 % (12.0-15.0); WHITE BLOOD COUNT 5.9 x10^3/uL (4.8-10.8)
--- NOTE | 2022-07-17 09:15 | ED Physician Documentation ---
PD HPI FOCAL NEURO - Stated complaint Stated Complaint: CNT TALK/SLURRED SPEECH - Chief complaint Chief Complaint: Neuro - History obtained from History obtained from: Patient, Family (spouse who gives independent description of symptoms.) - History of Present Illness Timing - onset: How many hours ago (4-5), Today Timing - duration: Hours (4-5, with some improvement in symptoms.) Timing - details: Abrupt onset (Onset around 430 this morning. She woke from sleep and noted herself having some facial discomfort. She tried speaking but was having trouble enunciating. She and felt some right facial drooping was noticed. The patient states she felt her legs felt weak but able to ambulate.) Weakness: Face, Right Review of Systems Eyes: denies: Loss of vision, Decreased vision Nose: denies: Rhinorrhea / runny nose, Congestion Throat: denies: Sore throat Cardiac: denies: Chest pain / pressure, Palpitations Respiratory: denies: Dyspnea, Cough GI: denies: Abdominal Pain, Nausea, Vomiting, Diarrhea Musculoskeletal: denies: Neck pain, Back pain Neurologic: reports: Focal weakness, Difficulty speaking. denies: Numbness, Syncope, Altered mental status, Headache, Head injury PD PAST MEDICAL HISTORY - Past Medical History Cardiovascular: None Respiratory: None Neuro: None Endocrine/Autoimmune: None GI: C.difficile, Diverticulitis : Chronic bladder infection Psych: Depression, Anxiety Musculoskeletal: Chronic back pain - Past Surgical History Past Surgical History: Yes General: Bowel surgery - Present Medications Home Medications: Ambulatory Orders Medication Instructions Recorded Confirmed Aspirin 81 mg PO DAILY 01/30/17 07/17/22 Gabapentin 600 mg PO QPM 03/03/17 07/17/22 Atorvastatin [Lipitor] 20 mg PO DAILY 09/18/21 07/17/22 Zolpidem Tartrate [Zolpidem 1 cap PO QPM 09/18/21 07/17/22 Tartrate ER] Clopidogrel [Plavix] 75 mg PO DAILY 30 Days #30 tablet 07/17/22 - Allergies Allergies/Adverse Reactions: Allergies Allergy/AdvReac Type Severity Reaction Status Date / Time sulfamethoxazole Allergy Rash Verified 07/17/22 09:05 [From Bactrim] trimethoprim [From Bactrim] Allergy Rash Verified 07/17/22 09:05 - Social History Does the pt smoke?: No Smoking Status: Never smoker Does the pt drink ETOH?: No Does the pt have substance abuse?: No - Immunizations Immunizations are current?: Yes - POLST Patient has POLST: Yes PD ED PE NORMAL - Vitals Vital signs reviewed: Yes - General General: Alert and oriented X 3, No acute distress, Well developed/nourished - HEENT HEENT: PERRL, EOMI, Pharynx benign - Neck Neck: Supple, no meningeal sign, No adenopathy - Cardiac Cardiac: RRR, No murmur, No rub - Respiratory Respiratory: Clear bilaterally - Abdomen Abdomen: Soft, Non tender - Derm Derm: Normal color, Warm and dry - Extremities Extremities: No edema, No calf tenderness / cord - Neuro Neuro: Alert and oriented X 3. No: Normal speech (dysarthria - able to be understand but very discernible dysarthria. Content is okay and able to complete sentences and follow thought process/conversation. Mild facial droop on right. ) Eye Opening: Spontaneous Motor: Obeys Commands Verbal: Oriented GCS Score: 15 NIHSS - Level of Consciousness Level of consciousness: (0) Alert, Keenly responsive LOC Questions: (0) Answers both Q's correct LOC Commands: (0) Performs both correctly - Gaze Best Gaze: (0) Normal - Visual Visual: (0) No loss - Facial Palsy Facial Palsy: (1) Minor paralysis (right side) - Motor Arms (both separate) Motor Arm (right): (0) No drift Motor Arm (left): (0) No drift - Motor Legs (both separate) Motor Leg (right): (0) No drift Motor Leg (left): (0) No drift - Limb Ataxia Limb Ataxia: (0) Absent - Sensory Sensory: (0) Normal - Best Language Best Language: (0) No aphasia - Dysarthria Dysarthria: (1) [id number]-nednoyyf dysarthria - Extinction and Inattention (formally neg Extinction and inattention: (0) No abnormality - Total Score/Results Total Score/Result: 2 Results - Vitals Vitals: Vital Signs - 24 hr 07/17/22 07/17/22 07/17/22 09:01 09:44 10:14 Temperature 36.4 C L Heart Rate 74 105 H 66 Respiratory 17 12 16 Rate Blood Pressure 142/82 H 116/70 O2 Saturation 96 98 96 07/17/22 07/17/22 10:50 11:36 Temperature Heart Rate 117 H 66 Respiratory 18 19 Rate Blood Pressure 87/58 L 127/85 H O2 Saturation 100 95 Oxygen O2 Source Room air - EKG (time done) 09:51 Rate: Rate (enter#) (65) Rhythm: NSR [place]: Normal Intervals: Normal AR QRS: Normal Ischemia: Normal ST segments. No: ST elevation c/w ischemia, ST depression - Labs Labs: Laboratory Tests 07/17/22 07/17/22 07/17/22 08:56 08:56 08:56 WBC 5.9 RBC 4.89 Hgb 14.4 Hct 45.3 MCV 92.6 MCH 29.4 MCHC 31.8 L RDW 12.6 Plt Count 234 MPV 9.2 Neut # (Auto) 3.2 Lymph # (Auto) 2.1 [place] # (Auto) 0.5 Eos # (Auto) 0.1 Baso # (Auto) 0.0 Absolute Nucleated RBC 0.00 Nucleated RBC % 0.0 ESR 3 Sodium 140 Potassium 4.3 Chloride 102 Carbon Dioxide 29 Anion Gap 9.0 BUN 20 Creatinine 0.7 Estimated GFR (MDRD) 82 L Glucose 100 Calcium 9.9 Magnesium 2.2 Total Bilirubin 0.8 AST 18 ALT 15 Alkaline Phosphatase 83 Total Protein 7.3 Albumin 4.3 Globulin 3.0 Albumin/Globulin Ratio 1.4 Lipase 40 Urine Color Urine Clarity Urine pH Ur Specific [place] Urine Protein Urine Glucose (UA) Urine Ketones Urine Occult Blood Urine Nitrite Urine Bilirubin Urine Urobilinogen Ur Leukocyte Esterase Ur Microscopic Review Urine Culture Comments Nasal Adenovirus (PCR) Nasal B. parapertussis DNA (PCR) Nasal Coronavir 229E PCR Nasal Coronavir HKU1 PCR Nasal Coronavir NL63 PCR Nasal Coronavir OC43 PCR Nasal Enterovir/Rhinovir PCR Nasal Influenza B PCR Nasal Influenza A PCR Nasal Parainfluen 1 PCR Nasal Parainfluen 2 PCR Nasal Parainfluen 3 PCR Nasal Parainfluen 4 PCR Nasal RSV (PCR) Nasal B.pertussis DNA PCR Nasal C.pneumoniae (PCR) Bam Human Metapneumo PCR Nasal M.pneumoniae (PCR) Nasal SARS-CoV-2 (PCR) 07/17/22 07/17/22 10:06 11:00 WBC RBC Hgb Hct MCV MCH MCHC RDW Plt Count MPV Neut # (Auto) Lymph # (Auto) [place] # (Auto) Eos # (Auto) Baso # (Auto) Absolute Nucleated RBC Nucleated RBC % ESR Sodium Potassium Chloride Carbon Dioxide Anion Gap BUN Creatinine Estimated GFR (MDRD) Glucose Calcium Magnesium Total Bilirubin AST ALT Alkaline Phosphatase Total Protein Albumin Globulin Albumin/Globulin Ratio Lipase Urine Color YELLOW Urine Clarity CLEAR Urine pH 7.0 Ur Specific [place] 1.010 Urine Protein NEGATIVE Urine Glucose (UA) NEGATIVE Urine Ketones NEGATIVE Urine Occult Blood NEGATIVE Urine Nitrite NEGATIVE Urine Bilirubin NEGATIVE Urine Urobilinogen 0.2 (NORMAL) Ur Leukocyte Esterase NEGATIVE Ur Microscopic Review NOT INDICATED Urine Culture Comments NOT INDICATED Nasal Adenovirus (PCR) NOT DETECTED Nasal B. parapertussis DNA (PCR) NOT DETECTED Nasal Coronavir 229E PCR NOT DETECTED Nasal Coronavir HKU1 PCR NOT DETECTED Nasal Coronavir NL63 PCR NOT DETECTED Nasal Coronavir OC43 PCR NOT DETECTED Nasal Enterovir/Rhinovir PCR NOT DETECTED Nasal Influenza B PCR NOT DETECTED Nasal Influenza A PCR NOT DETECTED Nasal Parainfluen 1 PCR NOT DETECTED Nasal Parainfluen 2 PCR NOT DETECTED Nasal Parainfluen 3 PCR NOT DETECTED Nasal Parainfluen 4 PCR NOT DETECTED Nasal RSV (PCR) NOT DETECTED Nasal B.pertussis DNA PCR NOT DETECTED Nasal C.pneumoniae (PCR) NOT DETECTED Bam Human Metapneumo PCR NOT DETECTED Nasal M.pneumoniae (PCR) NOT DETECTED Nasal SARS-CoV-2 (PCR) NOT DETECTED - Rads (name of study) CT/CTA Radiology: Prelim report reviewed, Discussed with rads (no acute abnormalities on CT. CTA without LVO. there is possible flow defect at iCA bifurcation that may be artifact though concern for small dissection. Suggest MRA/MRI. ), See rad report PD Medical Decision Making - ED course Complexity details: reviewed results (ct/cta done and discussed with radiologist and neurologist. MRI/MRA might be able to be done later today, but not confirmed. Also typical workup would include ECHO. And follow symptoms overnight. Patient should be in hospital for optimal care. ), re-evaluated patient (patient was getting admitted for further workup. She had not resolved symptoms so presume true CVA rather than TIA. Needs MRI and ECHO per Neurology and suggested mrA to eval the possible flow defect on CTA. Patient became impatient about getting admitted and then wanted to just go home.), considered differential, d/w patient, d/w family (spouse), d/w center lead consultant (Dr. Rossi, hospitalist, who will write orders. ) Procedural Risk Factors Specific to Patient: she is at risk of worsening symptoms again, especially without knowing location and extend of the CVA. EWe do know there is not an LVO and is out of window for lytics. But still has symptoms so not TIA. Seems CVA. ED course: i discussed risk/benefits with patient, with her in room as well. She expresses understanding of the concerns and wishes to go home and subsequently get MRI outpt. I told her we cannot exclude tell the extent of her CVA as yet without further testing. Presume best treatment is dual antiplatelet regimen, but cannot exclude need for DOAC without ECHO, MRA. She still prefers being discharged and her could not convince her otherwise. - Consults Consults: Consulted (name) (Delia, Neurology), Other (With improving symptoms and time window greater than 5 hours, no thrombolytics indicated. There is no LVO so no endovascular intervention needed. Questionable artifact versus flow abnormality on the CT scan recommends MRA as well as MRI to better evaluate.) Departure - Departure Disposition: 07 Against Medical Advice Clinical Impression: Weakness on right side of face, Dysarthria, CVA (cerebral vascular accident) Condition: Stable Record reviewed to determine appropriate education?: Yes Instructions: ED Stroke Completed Follow-Up: HELEN RODRIGEZ ARNP [Primary Care Provider] - Prescriptions: Clopidogrel [Plavix] 75 mg PO DAILY 30 Days #30 tablet Comments: Stay well-hydrated. Use a baby aspirin daily for the next month and add clopidogrel 75 mg daily for the next month. Follow-up with your primary care to arrange outpatient further evaluation such as MRI/MRA and potential echocardiogram of the heart to better visualize the presumed stroke and ascertain the best medication regimen to ensure no recurrences. At this point would presume aspirin and Plavix is the best choice as suggested by the neurologist. I sent your prescription to [facility]. Return if worsening symptoms. Discharge Date/Time: 07/17/22 13:33
[2022-07-17 09:24] LABS: ALBUMIN 4.3 g/dL (3.2-5.5); ALBUMIN/GLOBULIN RATIO 1.4 (1.0-2.2); BILIRUBIN,TOTAL 0.8 mg/dL (0.2-1.0); CALCIUM 9.9 mg/dL (8.5-10.3); CREATININE 0.7 mg/dL (0.4-1.0); MAGNESIUM 2.2 mg/dL (1.7-2.8); POTASSIUM 4.3 mmol/L (3.5-5.0); TOTAL PROTEIN 7.3 g/dL (6.7-8.2)
[2022-07-17] MEDS ORDERED: iohexoL-300 100 ML VIAL IVP ONE (09:28)
[2022-07-17] MEDS ORDERED: iohexoL-300 100 ML VIAL ONE (09:31)
--- NOTE | 2022-07-17 09:32 | CT Report ---
PROCEDURE: Head W/O Stroke Protocol INDICATIONS: dysarthria, right face weak TECHNIQUE: Noncontrast 4.5 mm thick angled axial sections acquired from the foramen magnum to the vertex, with c oronal reformats. For radiation dose reduction, the following was used: automated exposure control, adjustment of mA and/or kV according to patient size. COMPARISON: FINDINGS: Image quality: Excellent. CSF spaces: Basal cisterns are patent. No extra-axial fluid collections. Ventricles are normal in size and shape. Brain: No midline shift. No intracranial masses or hemorrhage. No mass effect. Mcelroy-white matter i nterface is normal. There cerebral volume loss for age with resultant ventricular and sulcal prominen ce. There are periventricular and deep white matter chronic small vessel ischemic changes. Atheroscle rotic calcifications are noted in the intracranial segments of the bilateral internal carotid arterie s. Senescent calcifications noted in the bilateral basal ganglia. Stable appearance of chronic infarct within the left anterior cm radiata extending into the left external capsule. Skull and face: Calvarium and visualized facial bones are intact, without suspicious lesions. Sinuses: Visualized sinuses and mastoids are clear. IMPRESSION: Stable CT evaluation of the head without acute intracranial abnormalities. Stable appearance of chronic infarction involving the left cm radiata/external capsule. Stable age-related senescent changes and sequela of chronic small vessel ischemic disease. Findings discussed telephonically with Dr. Calvo at 0928 hrs This study fulfills neurological imaging criteria for inclusion or exclusion of acute stroke therapie s based on available published neurological imaging guidelines. Reviewed by: Rey Munoz MD on 07/17/2022 9:30 AM [facility] Approved by: Rey Munoz MD on 07/17/2022 9:30 AM PST Station ID: [id number]
--- NOTE | 2022-07-17 09:39 | CT Report ---
PROCEDURE: ANGIO HEAD W/WO INDICATIONS: dysarthria, right face weak CONTRAST: 80ml Omnipaque 300 TECHNIQUE: Precontrast 4.5 mm thick angled axial sections acquired from the foramen magnum to the vertex. Afte r the administration of intravenous contrast, 1 mm thick sections acquired through the [place] of [place] is. Postcontrast 4.5 mm thick sections then re-acquired from the foramen magnum to the vertex. 3-di mensional kysqnwp-dydzqjqvc-tvwtknluep (MIP) and/or volume rendering reformats were acquired of the c entral intracranial vasculature. For radiation dose reduction, the following was used: automated ex posure control, adjustment of mA and/or kV according to patient size. COMPARISON: Noncontrast head CT dated 08/10/2020, noncontrast head CT dated 07/17/2022. FINDINGS: Image quality: Excellent. Anterior circulation: Intracranial internal carotid arteries are normal in size and flow. The flow within the paired anterior cerebral arteries is normal and symmetric. The flow within the middle cer ebral arteries is normal and symmetric. The anterior communicating artery is seen. No aneurysms are seen. Posterior circulation: Visualized portions of the vertebral arteries demonstrate normal caliber, and join to form a normal appearing basilar artery. Flow within the posterior cerebral arteries is norm al and symmetric. No aneurysms are seen. CSF spaces: Ventricles are normal in size and shape. Mild ex vacuo dilatation of the left lateral ve ntricle redemonstrated. Basal cisterns are patent. No extra-axial fluid collections. Brain: No midline shift. No intracranial bleeds or masses. Chronic appearing left basal ganglia inf arct redemonstrated. Mcelroy-white matter interface appears intact. Skull and face: Calvarium and facial bones appear intact, without suspicious lesions. Sinuses: Visualized sinuses and mastoids are clear. IMPRESSION: 1. No stenosis, occlusion, or aneurysm. No acute intracranial findings. 2. Chronic left basal ganglia infarct changes redemonstrated. Reviewed by: Mariza Reddy MD on 07/17/2022 9:37 AM PST Approved by: Mariza Reddy MD on 07/17/2022 9:37 AM PST Station ID: [id number]
--- NOTE | 2022-07-17 09:51 | CT Report ---
PROCEDURE: ANGIO NECK W INDICATIONS: dysarthria, right face weak CONTRAST: 80ml Omnipaque 300 TECHNIQUE: After the administration of intravenous contrast, 1.5 mm axial sections acquired from the aortic arch to the [place] of [place]. Coronal 3-D maximum intensity projection (MIP) and/or volume rendering ref ormats were then performed. For radiation dose reduction, the following was used: automated exposur e control, adjustment of mA and/or kV according to patient size. COMPARISON: None. FINDINGS: Image quality: Excellent. Carotid system: The great vessels demonstrate a conventional anatomy as they arise from the aortic a rch. The origins of the common carotid arteries appear patent. The left common carotid artery demons trates normal course and caliber. There is a focal linearly oriented differential and opacity at the level of the right carotid bifurcation raising the suspicion for a nonflow limiting carotid artery di ssection (series 4/image 121 and series 7/image 133). More superior aspect of the right internal farooq tid and external carotid arteries demonstrate normal course and caliber with no findings to suggest p ropagation of dissection. The bifurcation regions appear normal bilaterally. The internal carotid a rteries demonstrate normal caliber and course. Posterior circulation: The origins of the vertebral arteries appear patent. The more superior porti ons of the vertebral arteries demonstrate normal course and caliber. They join to form a normal appe aring basilar artery. Soft tissues: Visualized neck soft tissues demonstrate no suspicious abnormalities. The left thyroi d lobe has a heterogeneous, enlarged appearance. Right thyroid lobe is unremarkable. Bones: No suspicious bony lesions. Visualized cervical spine appears normally aligned. IMPRESSION: 1. Flow artifact within the bifurcation of the right common carotid artery. Nonflow limiting dissecti on could cause this appearance. Alternatively, findings may represent CT artifact. Consider vascular surgery consultation as carotid artery dissection cannot be excluded. MRA of the neck could also be u sed to further characterize findings and exclude CT artifact. This finding was discussed with Dr. Calvo at 9:45 AM on 07/17/2022. 2. No other findings to suggest stenosis, occlusion, or aneurysm. 3. Enlarged heterogeneous left thyroid lobe. Nonemergent thyroid ultrasound recommended if further ch aracterization is warranted. CLINICAL RECOMMENDATION STATEMENTS: In patients <35 years with an ITN detected on CT, MRI, or extrathyroidal ultrasound, the Committee re commends further evaluation with dedicated thyroid ultrasound if the nodule is "e1 cm and has no susp icious imaging features, and if the patient has normal life expectancy. In patients "e35 years with an ITN detected on CT, MRI, or extrathyroidal ultrasound, the Committee r ecommends further evaluation with dedicated thyroid ultrasound if the nodule is "e1.5 cm and has no s uspicious imaging features, and if the patient has normal life expectancy. (ACR, 2014) Reviewed by: Mariza Reddy MD on 07/17/2022 9:49 AM PST Approved by: Mariza Reddy MD on 07/17/2022 9:49 AM PST Station ID: [id number]
[2022-07-17] MEDS ORDERED: ASPIRIN CHEW 81 MG TABLET PO STA (09:58)
[2022-07-17] MEDS ORDERED: CLOPIDOGREL 300 MG TABLET PO STA (09:58)
[2022-07-17 11:38] VITALS: BP 127/85
[2022-07-17 12:09] LABS: B. PARAPERTUSSIS- RESP PCR PAN NOT DETECTED; B. PERTUSSIS- RESP PCR PANEL NOT DETECTED; C. PNEUMONIAE- RESP PCR PANEL NOT DETECTED; CORONAVIRUS 229E-RESP PCR NOT DETECTED; CORONAVIRUS HKU1-RESP PCR NOT DETECTED; CORONAVIRUS NL63-RESP PCR NOT DETECTED; CORONAVIRUS OC43-RESP PCR NOT DETECTED; HUMAN METAPNEUMOVIRUS NOT DETECTED; INFLUENZA A- RESP PCR PANEL NOT DETECTED; INFLUENZA B - RESP PCR PANEL NOT DETECTED; M. PNEUMONIAE- RESP PCR PANEL NOT DETECTED; PARAINFLUENZA VIRUS 1 NOT DETECTED; PARAINFLUENZA VIRUS 2 NOT DETECTED; PARAINFLUENZA VIRUS 3 NOT DETECTED; PARAINFLUENZA VIRUS 4 NOT DETECTED; RHINOVIRUS/ENTEROVIRUS NOT DETECTED; RSV- RESP PCR PANEL NOT DETECTED; SARS-CoV-2 -RESP PCR PANEL NOT DETECTED
[2022-07-17 13:31] LABS: BILIRUBIN,URINE NEGATIVE (NEGATIVE); GLUCOSE, URINE (UA) NEGATIVE (NEGATIVE); KETONES,URINE (UA) NEGATIVE (NEGATIVE); LEUKOCYTE ESTERASE, URINE NEGATIVE (NEGATIVE); NITRITE,URINE NEGATIVE (NEGATIVE); OCCULT BLOOD,URINE NEGATIVE (NEGATIVE); PROTEIN,URINE NEGATIVE (NEGATIVE); UROBILINOGEN,URINE 0.2 (NORMAL) E.U./dL (NORMAL)
[2022-07-17 13:35] LABS: CLARITY,URINE CLEAR (CLEAR)
== END 2022-07-17 13:33 | disposition left against medical advice (07) ==
LOC: ED 08:41
DX: I63.9 Cerebral infarction, unspecified (principal); R29.810 Facial weakness; R47.1 Dysarthria and anarthria; R29.702 NIHSS score 2; Z20.822 Contact with and (suspected) exposure to COVID-19
CPT/HCPCS: 36415; 70450; 70496; 70498; 80053; 81003; 83690; 83735; 85025; 85651; 87633; 93005; 99284; A9270; Q9967; 81001; 87086

== ENCOUNTER 2022-12-29 14:49 | Outpatient (CLI) | payer MEDICARE, OTHER ==
--- NOTE | 2022-12-29 16:34 | CT Report ---
PROCEDURE: ABDOMEN/PELVIS WO INDICATIONS: FLANK PAIN TECHNIQUE: A CT scan of the abdomen and pelvis was performed without the use of intravenous contrast. Images we re recorded and evaluated at appropriate window settings. Reformats: coronal and sagittal. For radiat ion dose reduction, the following was used: automated exposure control, adjustment of mA and/or kV ac cording to patient size. COMPARISON: None. FINDINGS: Image quality: Excellent. Lung bases and heart: Mild dependent atelectasis. Liver: No solid mass. Gallbladder and biliary tree: No radiopaque stones or wall thickening. No biliary dilation. Spleen: No splenomegaly. Pancreas: No pancreatic ductal dilation. Adrenals: No adrenal nodule. Kidneys and ureters: No hydronephrosis. Multiple bilateral nonobstructing renal stones, greater on th e left. The largest stone at the midpole of the left kidney measures 5 mm.. Bowel and peritoneum: No bowel distension. No pathologic free fluid. Scattered diverticula without ev idence of active inflammation. Sutures are noted within the sigmoid colon. Lymph nodes: No central or retroperitoneal adenopathy. Vessels: No infrarenal aortic aneurysm. Atherosclerotic vascular calcifications. PELVIS Reproductive organs: Unremarkable. Bladder: No wall thickness, accounting for underdistention. Pelvic lymph nodes: No pelvic adenopathy by size criteria. Bones: No aggressive osseous abnormality. Multilevel degenerative changes of the lumbar spine with gr hector I anterolisthesis of L3 on L4 and L4 on L5. Vacuum disc phenomenon at L5-S1. Diffusely decreased osseous mineralization. Presumed bone islands within the pelvis. Other: No significant ventral or inguinal hernia. IMPRESSION: 1.Bilateral nonobstructing renal stones and calcifications, largest measuring 5 mm in the midpole lef t kidney. No hydronephrosis. No stones are identified within the ureter. 2.Diverticulosis without evidence of diverticulitis. Reviewed by: Moody English MD on 12/29/2022 4:33 PM PDT Approved by: Moody English MD on 12/29/2022 4:33 PM PDT Station ID: [id number]
== END 2022-12-29 14:50 | disposition home or self-care (01) ==
LOC: DI 14:49
PROVIDERS: ATTEND Registered Nurse
DX: R10.9 Unspecified abdominal pain (principal); N20.0 Calculus of kidney; K57.90 Diverticulosis of intestine, part unspecified, without perforation or abscess without bleeding

== ENCOUNTER 2023-03-28 09:45 | Outpatient (CLI) | payer MEDICARE, OTHER | END 2023-03-28 10:00 | disposition home or self-care (01) | LOC: LAB.N 09:45 | PROVIDERS: ATTEND Family Medicine | DX: R30.0 Dysuria (principal) | CPT/HCPCS: 87086 ==

== ENCOUNTER 2023-03-28 13:36 | Outpatient (CLI) | payer MEDICARE, OTHER ==
--- NOTE | 2023-03-28 14:37 | XRAY Report ---
PROCEDURE: ThoracoLumbar 2 View INDICATIONS: FLANK PX,LOW BACK PX,CHRONIC TECHNIQUE: 4 views acquired of the thoracolumbar spine. COMPARISON: CT of abdomen and pelvis dated 12/29/2022 FINDINGS: Bones: There is mild levoscoliosis of lumbar spine with apex at L3 level. 4 mm anterolisthesis of L3 on L4 and 7 mm anterolisthesis of L4 on L5 is seen. Degenerative endplate changes, loss of disc heig ht and bilateral facet arthrosis throughout thoracic and lumbar spine is seen. No acute fractures or dislocations. Visualized inferior ribs appear intact. No suspicious bony lesions. Soft tissues: No suspicious soft tissue calcifications. IMPRESSION: Scoliosis as above. No acute compression fracture. Grade 1 anterolisthesis at L3-4 and L4-5 levels. 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 Reviewed by: Sher Servin MD on 03/28/2023 2:36 PM PDT Approved by: Sher Servin MD on 03/28/2023 2:36 PM PDT Station ID: [id number]
== END 2023-03-28 13:37 | disposition home or self-care (01) ==
LOC: DI 13:36
PROVIDERS: ATTEND Family Medicine
DX: M43.16 Spondylolisthesis, lumbar region (principal); M51.34 Other intervertebral disc degeneration, thoracic region; R30.0 Dysuria
CPT/HCPCS: 87086

== ENCOUNTER 2023-04-22 07:41 | Emergency (ER) | payer MEDICARE, OTHER ==
[2023-04-22] MEDS ORDERED: LIDOCAINE PATCH 5% TOP STA (08:12)
[2023-04-22] MEDS ORDERED: ACETAMINOPHEN 325 MG TABLET PO STA (08:12)
[2023-04-22 08:56] LABS: BILIRUBIN,URINE NEGATIVE (NEGATIVE); GLUCOSE, URINE (UA) NEGATIVE (NEGATIVE); KETONES,URINE (UA) NEGATIVE (NEGATIVE); LEUKOCYTE ESTERASE, URINE NEGATIVE (NEGATIVE); NITRITE,URINE NEGATIVE (NEGATIVE); OCCULT BLOOD,URINE SMALL (NEGATIVE); PROTEIN,URINE NEGATIVE (NEGATIVE); UROBILINOGEN,URINE 0.2 (NORMAL) E.U./dL (NORMAL)
[2023-04-22 08:58] LABS: CLARITY,URINE CLEAR (CLEAR)
[2023-04-22 09:07] LABS: BACTERIA,URINE Few /HPF (None Seen); RBC,URINE 0-5 /HPF (0-5); SQUAMOUS EPITHELIAL CELL,UR MOD Squamous (<= Few); WBC,URINE 0-3 /HPF (0-5)
--- NOTE | 2023-04-22 09:23 | ED Physician Documentation ---
PD HPI BACK PAIN - Stated complaint Stated Complaint: BACK PX - Chief complaint Chief Complaint: Back Pain - History obtained from History obtained from: Patient - Additional information Additional information: Patient is a 72-year-old female with a history of a stroke presenting for evaluation of low back pain starting this morning. She denies any known injury or trauma. She has had recent episodes of back pain but usually attributes this to a urine infection and states she could not completed a course of antibiotics 1 week ago. She reports having urinary frequency but denies dysuria. No fever, nausea, vomiting, abdominal pain. No bowel or bladder incontinence.She is on Plavix.She was recently seen at the walk-in clinic for low back pain and had an x-ray.2 view x-ray On March 28 demonstrated scoliosis as well as "no acute compression fracture. There is grade 1 anterolisthesis at L3-L4 and L4-L5 levels. 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 denies: Dysuria, Incontinent Musculoskeletal: reports: Back pain PD PAST MEDICAL HISTORY - Past Medical History Past Medical History: Yes Cardiovascular: None Respiratory: None Neuro: None Endocrine/Autoimmune: None GI: C.difficile, Diverticulitis : Chronic bladder infection Psych: Depression, Anxiety Musculoskeletal: Chronic back pain - Past Surgical History Past Surgical History: Yes General: Bowel surgery - Present Medications Home Medications: Ambulatory Orders Medication Instructions Recorded Confirmed Aspirin 81 mg PO DAILY 01/30/17 04/22/23 Gabapentin 300 mg PO QPM 03/03/17 04/22/23 Atorvastatin [Lipitor] 20 mg PO DAILY 09/18/21 04/22/23 Clopidogrel [Plavix] 75 mg PO DAILY 30 Days #30 tablet 07/17/22 04/22/23 - Allergies Allergies/Adverse Reactions: Allergies Allergy/AdvReac Type Severity Reaction Status Date / Time sulfamethoxazole Allergy Rash Verified 07/17/22 09:05 [From Bactrim] trimethoprim [From Bactrim] Allergy Rash Verified 07/17/22 09:05 - Social History Does the pt smoke?: No Smoking Status: Never smoker Does the pt drink ETOH?: No Does the pt have substance abuse?: No - Immunizations Immunizations are current?: Yes - POLST Patient has POLST: Yes PD ED PE NORMAL - General General: Alert and oriented X 3, No acute distress, Well developed/nourished - HEENT HEENT: Atraumatic, Moist mucous membranes, Pharynx benign - Neck Neck: Supple, no meningeal sign - Cardiac Cardiac: RRR, No murmur, Strong equal pulses - Respiratory Respiratory: No respiratory distress, Clear bilaterally - Abdomen Abdomen: Normal bowel sounds, Soft, Non tender, Non distended - Back Back: No CVA TTP, No spinal TTP, Other (Tenderness to low lumbar region bilaterally) - Derm Derm: Warm and dry - Extremities Extremities: No tenderness to palpate - Neuro Neuro: Alert and oriented X 3, No motor deficit, No sensory deficit Results - Vitals Vitals: Vital Signs - 24 hr 04/22/23 04/22/23 07:46 10:15 Temperature 36.2 C L Heart Rate 79 64 Respiratory 16 16 Rate Blood Pressure 129/90 H 133/93 H O2 Saturation 98 100 Oxygen O2 Source Room air - Labs Labs: Laboratory Tests 04/22/23 08:41 Urine Color YELLOW Urine Clarity CLEAR Urine pH 7.0 Ur Specific [place] 1.010 Urine Protein NEGATIVE Urine Glucose (UA) NEGATIVE Urine Ketones NEGATIVE Urine Occult Blood SMALL H Urine Nitrite NEGATIVE Urine Bilirubin NEGATIVE Urine Urobilinogen 0.2 (NORMAL) Ur Leukocyte Esterase NEGATIVE Urine RBC 0-5 Urine WBC 0-3 Ur Squamous Epith Cells MOD Squamous H Urine Bacteria Few Ur Microscopic Review INDICATED Urine Culture Comments NOT INDICATED PD Medical Decision Making - ED course Complexity details: reviewed results ED course: Patient is a 72-year-old female presenting for evaluation of low back pain that she woke up with this morning. No reported injury or trauma. She is ambulatory here. No bowel or bladder incontinence or other symptoms to suggest cord compression. She does have frequent UTIs and urinalysis was reviewed but does not appear to be convincing for an infection. She has recently had an x-ray of her lumbar spine with degenerative changes. I did give her a lidocaine patch and acetaminophen. CT scan was ordered given her advanced age to evaluate for possible fracture Which she was agreeable to. There was a delay in CT as we are using our mobile unit at this time. We did follow-up with the patient regarding this delay but unfortunately she walked out of the emergency department prior to receiving the CT scan.Her abdominal exam was benign.Her vital signs were stable. Departure - Departure Disposition: Left Prior to Disposition Clinical Impression: Low back pain
[2023-04-22 10:19] VITALS: BP 133/93; O2SAT 100
== END 2023-04-22 11:40 | disposition home or self-care (01) ==
LOC: ED 07:41
DX: M54.50 Low back pain, unspecified (principal); Z79.82 Long term (current) use of aspirin; Z79.899 Other long term (current) drug therapy; Z79.02 Long term (current) use of antithrombotics/antiplatelets
CPT/HCPCS: 81001; 99283; A9270; 81003; 87086

== ENCOUNTER 2023-06-18 08:00 | Outpatient (CLI) | payer MEDICARE, OTHER | END 2023-06-18 23:59 | disposition home or self-care (01) | LOC: LAB.N 08:00 | PROVIDERS: ATTEND Family Medicine | DX: R30.0 Dysuria (principal) | CPT/HCPCS: 87086; 87181 ==

== ENCOUNTER 2023-08-26 09:25 | Emergency (ER) | payer MEDICARE, OTHER ==
[2023-08-26 09:59] VITALS: BP 170/80; O2SAT 98
--- NOTE | 2023-08-26 10:29 | ED Physician Documentation ---
History of Present Illness - Stated complaint Stated Complaint: CAN'T SLEEP - Chief complaint Chief Complaint: General - History obtained from History obtained from: Patient - History of Present Illness Timing: How many days ago (5) - Additonal information Additional information: Ema Tamayo is a 72-year-old female who has had a problem with insomnia and she is has been taking 10 mg of Ambien nightly for the past 3 to 4 years. She indicates that she has changed her doctor now and that her new doctor is told her she he does not think she needs that and discontinue prescribing it for her. She has not slept now and 4 days. She is asking for refill on her prescription. She indicates he is not currently ill she has tried a number of preparations previously for insomnia and she is found that she is able to get 8 hours of solid sleep with the use of the Ambien. She believes she has tried trazodone and Lunesta previously. Review of Systems Constitutional: denies: Fever Nose: denies: Congestion Throat: denies: Sore throat Respiratory: denies: Cough GI: denies: Vomiting Skin: denies: Rash Musculoskeletal: denies: Extremity pain Psychiatric: reports: Insomnia. denies: Suicidal, Homicidal, Hallucinations, Delusions PD PAST MEDICAL HISTORY - Past Medical History Cardiovascular: None Respiratory: None Neuro: None Endocrine/Autoimmune: None GI: C.difficile, Diverticulitis : Chronic bladder infection Psych: Depression, Anxiety Musculoskeletal: Chronic back pain - Past Surgical History Past Surgical History: Yes General: Bowel surgery - Present Medications Home Medications: Ambulatory Orders Medication Instructions Recorded Confirmed Gabapentin 300 mg PO QPM 03/03/17 08/26/23 Atorvastatin [Lipitor] 20 mg PO DAILY 09/18/21 08/26/23 Clopidogrel [Plavix] 75 mg PO DAILY 30 Days #30 tablet 07/17/22 08/26/23 Zolpidem Tartrate [Ambien] 10 mg PO HS PRN #14 tablet 08/26/23 - Allergies Allergies/Adverse Reactions: Allergies Allergy/AdvReac Type Severity Reaction Status Date / Time sulfamethoxazole Allergy Rash Verified 07/17/22 09:05 [From Bactrim] trimethoprim [From Bactrim] Allergy Rash Verified 07/17/22 09:05 - Social History Does the pt smoke?: No Smoking Status: Never smoker Does the pt drink ETOH?: No Does the pt have substance abuse?: No - Immunizations Immunizations are current?: Yes - POLST Patient has POLST: Yes PD ED PE NORMAL - Vitals Vital signs reviewed: Yes (hypertensive ) - General General: Alert and oriented X 3, No acute distress, Well developed/nourished, Other (Pleasant 72-year-old female who is compos mentis. 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, No motor deficit, No sensory deficit, Normal speech Eye Opening: Spontaneous Motor: Obeys Commands Verbal: Oriented GCS Score: 15 - Psych Psych: Normal mood, Normal affect Results - Vitals Vitals: Vital Signs - 24 hr 08/26/23 09:41 Temperature 36.3 C L Heart Rate 82 Respiratory 16 Rate Blood Pressure 170/80 H O2 Saturation 98 Oxygen O2 Source Room air PD Medical Decision Making - ED course Complexity details: considered differential, d/w patient ED course: 72-year-old female who has had a problem with insomnia for years has been taking Ambien for years and this has apparently worked well for her. She has now discontinued it and has not slept in 3 nights and she is requesting we reinstate this. I have written her a prescription for 15 pills and asked her to follow-up with her primary. I did inquire about her prior use of other agents for sleep. She has tried others and seems to tolerate this well. Departure - Departure Disposition: 01 Home, Self Care Clinical Impression: Insomnia Qualifiers: Insomnia type: unspecified Qualified Code(s): G47.00 - Insomnia, unspecified Condition: Stable Instructions: ED Insomnia Follow-Up: Your, doctor [Other] Prescriptions: Zolpidem Tartrate [Ambien] 10 mg PO HS PRN #14 tablet PRN Reason: sleep Comments: Ema, today it looks like you have significant insomnia and are not doing well without your usual sleep medication. There are lots of ways to tackle insomnia and I believe you are telling me you have had success previously with a 10 mg dose of Ambien getting an 8-hour night of sleep. I have E scribed the Ambien to the [facility] in [place]. Follow-up with your primary care doctor for further considerations on treatment of your insomnia. Forms: PCP List Discharge Date/Time: 08/26/23 10:42
== END 2023-08-26 10:42 | disposition home or self-care (01) ==
LOC: ED 09:25
DX: G47.00 Insomnia, unspecified (principal)
CPT/HCPCS: 99282; 99283

== ENCOUNTER 2023-09-20 12:19 | Emergency (ER) | payer MEDICARE, OTHER ==
[2023-09-20 12:57] LABS: BILIRUBIN,URINE NEGATIVE (NEGATIVE); GLUCOSE, URINE (UA) NEGATIVE (NEGATIVE); KETONES,URINE (UA) NEGATIVE (NEGATIVE); LEUKOCYTE ESTERASE, URINE NEGATIVE (NEGATIVE); NITRITE,URINE NEGATIVE (NEGATIVE); OCCULT BLOOD,URINE TRACE-LYSE (NEGATIVE); PH,URINE 6.5 PH (5.0-7.5); PROTEIN,URINE NEGATIVE (NEGATIVE); UROBILINOGEN,URINE 0.2 (NORMAL) E.U./dL (NORMAL)
[2023-09-20 12:58] LABS: CLARITY,URINE CLEAR (CLEAR)
--- NOTE | 2023-09-20 13:32 | ED Physician Documentation ---
PD HPI ABD PAIN - Stated complaint Stated Complaint: PX - Chief complaint Chief Complaint: Abd Pain - History obtained from History obtained from: Patient - History of Present Illness Timing - onset: How many days ago (few days of lumbar to flank area pains more to the right. Had UTI with dark urine and dysuria about a week ago Rx with Macrobid and seemed improved. Now with back pain few days of unclear cause. She is concerned about recurrent infection or stone.) Timing - duration: Days Timing - details: Gradual onset, Waxing and waning Quality: Cramping, Aching, Pain Location: Other (lower to flank area of back, right more than left.) Radiation: Right flank Associated symptoms: No: Fever, Nausea, Vomiting, Diarrhea, Constipation, Dysuria, Loss of appetite Recently seen: Clinic Review of Systems Constitutional: denies: Fever, Chills, Myalgias : denies: Dysuria, Incontinent Skin: denies: Rash, Lesions Musculoskeletal: reports: Back pain Neurologic: denies: Focal weakness, Numbness PD PAST MEDICAL HISTORY - Past Medical History Cardiovascular: None Respiratory: None Neuro: None Endocrine/Autoimmune: None GI: C.difficile, Diverticulitis : Chronic bladder infection Psych: Depression, Anxiety Musculoskeletal: Chronic back pain - Past Surgical History Past Surgical History: Yes General: Bowel surgery - Present Medications Home Medications: Ambulatory Orders Medication Instructions Recorded Confirmed Gabapentin 300 mg PO QPM 03/03/17 09/20/23 Atorvastatin [Lipitor] 20 mg PO DAILY 09/18/21 09/20/23 Clopidogrel [Plavix] 75 mg PO DAILY 30 Days #30 tablet 07/17/22 09/20/23 Acetaminophen [Acetaminophen Extra 500 mg PO QID PRN #50 tablet 09/20/23 Strength] HYDROcod/ACETAM 5/325 [[place] 5/325] 1 ea PO Q6H PRN #18 tablet 09/20/23 Meloxicam [Mobic] 7.5 mg PO BID 10 Days #20 tablet 09/20/23 - Allergies Allergies/Adverse Reactions: Allergies Allergy/AdvReac Type Severity Reaction Status Date / Time sulfamethoxazole Allergy Rash Verified 07/17/22 09:05 [From Bactrim] trimethoprim [From Bactrim] Allergy Rash Verified 07/17/22 09:05 - Social History Does the pt smoke?: No Smoking Status: Never smoker Does the pt drink ETOH?: No Does the pt have substance abuse?: No - Immunizations Immunizations are current?: Yes - POLST Patient has POLST: Yes PD ED PE NORMAL - Vitals Vital signs reviewed: Yes - General General: Alert and oriented X 3, Well developed/nourished, Other (appears in pain from back. Some guarded ROM. ) - Cardiac Cardiac: RRR, No murmur - Respiratory Respiratory: Clear bilaterally - Abdomen Abdomen: Normal bowel sounds, Soft, Non tender, Non distended - Derm Derm: Normal color, Warm and dry - Neuro Neuro: Alert and oriented X 3, No motor deficit, No sensory deficit, Normal speech Results - Vitals Vitals: Vital Signs - 24 hr 09/20/23 09/20/23 12:26 16:38 Temperature 36.1 C L Heart Rate 98 75 Respiratory 16 18 Rate Blood Pressure 120/79 153/94 H O2 Saturation 95 100 Oxygen O2 Source Room air - Labs Labs: Laboratory Tests 09/20/23 09/20/23 09/20/23 12:40 14:01 14:01 WBC 6.4 RBC 4.58 Hgb 13.4 Hct 42.7 MCV 93.2 MCH 29.3 MCHC 31.4 L RDW 12.5 Plt Count 261 MPV 8.9 Neut # (Auto) 3.0 Lymph # (Auto) 2.6 [place] # (Auto) 0.5 Eos # (Auto) 0.2 Baso # (Auto) 0.1 Absolute Nucleated RBC 0.00 Nucleated RBC % 0.0 Sodium 138 Potassium 3.8 Chloride 106 Carbon Dioxide 27 Anion Gap 5.0 L BUN 24 H Creatinine 0.6 Estimated GFR (MDRD) 98 Glucose 94 Calcium 9.8 Total Bilirubin 0.5 AST 14 ALT 11 Alkaline Phosphatase 100 Total Protein 6.9 Albumin 4.1 Globulin 2.8 Albumin/Globulin Ratio 1.5 Lipase 31 Urine Color YELLOW Urine Clarity CLEAR Urine pH 6.5 Ur Specific [place] 1.020 Urine Protein NEGATIVE Urine Glucose (UA) NEGATIVE Urine Ketones NEGATIVE Urine Occult Blood TRACE-LYSE Urine Nitrite NEGATIVE Urine Bilirubin NEGATIVE Urine Urobilinogen 0.2 (NORMAL) Ur Leukocyte Esterase NEGATIVE Ur Microscopic Review NOT INDICATED Urine Culture Comments NOT INDICATED - Rads (name of study) abd/pelvic CT Relevant Findings:: Prelim report reviewed (normal kidneys. No acute abnormalities. Possible pelvic congestion. Moderate stool burden. ), EMP independent interpretation of test PD Medical Decision Making - ED course Complexity details: reviewed results (CT dfid not show acute process. Normal kidneys, abd organs. Arthritic changes of spine, no acute process. Unclear the cause of her pain. UA without infection. ), re-evaluated patient (pain improved with Toradol here. Renal function was good. ), considered differential (recent UTI with improved symptoms. Back pain now. No injury noted. Consider pyelo, UTI, kidney stones, vascular process, compression fx, osseous process, etc. Unclear cause so shared discussion to get CT imging. ), d/w patient Departure - Departure Disposition: Home, Self Care Clinical Impression: Back pain, acute, Musculoskeletal back pain Condition: Stable Record reviewed to determine appropriate education?: Yes Instructions: ED Low Back Pain Injury Prescriptions: Acetaminophen [Acetaminophen Extra Strength] 500 mg PO QID PRN #50 tablet PRN Reason: Pain Meloxicam [Mobic] 7.5 mg PO BID 10 Days #20 tablet HYDROcod/ACETAM 5/325 [[place] 5/325] 1 ea PO Q6H PRN #18 tablet PRN Reason: Pain Comments: Your urinalysis did not show signs of infection. Your blood test including kidney function are normal. The CT scan did not show any obvious cause for the pain. In particular no signs of inflammation of the kidneys. There is a couple of very small stones in the kidneys but none in the ureters or passing where that would cause pain. In the kidneys does not cause pain. No signs of vascular problems or other abnormalities. No diverticulitis etc. There is some arthritis noted in your spine. Unclear that this would be the cause of the pain directly now. At this point without an obvious cause on your testing, I would presume causes that do not show up on these tests would be more musculoskeletal. We can try combination of meloxicam anti-inflammatory twice daily with food for the next week or so. To that add acetaminophen/Tylenol 500 mg 4 times a day. To that hydrocodone/acetaminophen every 6-8 hours if needed for worse pain. In addition you can use trazodone at night if needed for sleep/insomnia. Follow-up with your primary care if not improving well over the next several days to week. Return if worse or other symptoms develop. I sent your prescription to [facility] in [place]. My narcotic instructions.I am prescribing a short course of narcotic pain medication for you. These are potentially dangerous and addictive medications that should be used carefully. These medications may constipate you. Take an [id number] stool softener such as docusate twice daily with plenty of water while taking these medications. If you go 24 hours without a bowel movement, take [id number] MiraLAX, per package instructions. Do not drink or drive while taking these medications. If you received narcotic or sedating medications while in the emergency department do not drive for 24 hours. Store this medication in a safe, secure place and out of reach of children. It is a violation of federal law to give or sell this medication to another person or to use in a manner other than prescribed. The ED will not refill narcotic prescriptions, including prescriptions lost or stolen. You can dispose of unwanted medications at the [facility]'s office or at several pharmacies such as [facility]. Forms: PCP List Discharge Date/Time: 09/20/23 16:55
[2023-09-20] MEDS: KETOROLAC 15 MG/ML VIAL IVP STA (14:05)
[2023-09-20] MEDS: ACETAMINOPHEN 500 MG TABLET PO STA (14:05)
[2023-09-20 14:09] LABS: BASOPHILS # (AUTO) 0.1 10^3/uL (0.0-0.1); BASOPHILS % (AUTO) 0.8 %; EOSINOPHILS # (AUTO) 0.2 10^3/uL (0.0-0.7); EOSINOPHILS % (AUTO) 2.7 %; HCT - HEMATOCRIT 42.7 % (37.0-47.0); HGB - HEMOGLOBIN 13.4 g/dL (12.0-16.0); LYMPHOCYTES # (AUTO) 2.6 10^3/uL (1.5-3.5); LYMPHOCYTES % (AUTO) 40.7 %; MEAN CORPUSCULAR HEMOGLOBIN 29.3 pg (27.0-31.0); MEAN CORPUSCULAR HGB CONC 31.4 g/dL (32.0-36.0); MEAN CORPUSCULAR VOLUME 93.2 fL (81.0-99.0); MEAN PLATELET VOLUME 8.9 fL (7.9-10.8); MONOCYTES # (AUTO) 0.5 10^3/uL (0.0-1.0); MONOCYTES % (AUTO) 8.5 %; NEUTROPHILS % (AUTO) 47.1 %; PLT - PLATELET COUNT 261 10^3/uL (130-450); RED BLOOD COUNT 4.58 10^6/uL (4.20-5.40); RED CELL DISTRIBUTION WIDTH 12.5 % (12.0-15.0); WHITE BLOOD COUNT 6.4 x10^3/uL (4.8-10.8)
[2023-09-20 14:22] LABS: ALBUMIN 4.1 g/dL (3.2-5.5); ALBUMIN/GLOBULIN RATIO 1.5 (1.0-2.2); BILIRUBIN,TOTAL 0.5 mg/dL (0.2-1.0); CALCIUM 9.8 mg/dL (8.5-10.3); CREATININE 0.6 mg/dL (0.6-1.3); POTASSIUM 3.8 mmol/L (3.5-4.5); TOTAL PROTEIN 6.9 g/dL (6.4-8.9)
[2023-09-20] MEDS ORDERED: iohexoL-300 100 ML VIAL ONE (15:06)
[2023-09-20] MEDS: iohexoL-300 100 ML VIAL IVP ONE (15:27)
--- NOTE | 2023-09-20 15:59 | CT Report ---
PROCEDURE: Abdomen/Pelvis W INDICATIONS: taiwo flank pain, recent UTi CONTRAST: Omnipaque 300 100ml TECHNIQUE: After the administration of intravenous contrast, a CT scan of the abdomen and pelvis was performed. Images were recorded and evaluated at appropriate window settings. Reformats: coronal and sagittal. F or radiation dose reduction, the following was used: automated exposure control, adjustment of mA and /or kV according to patient size. COMPARISON: CT 12/29/2022. FINDINGS: Image quality: Diagnostic. Lower chest: Small hiatal hernia. Liver: No solid mass. Gallbladder and biliary tree: Gallbladder sludge versus small stones. No wall thickening. No biliary dilation. Spleen: No splenomegaly. Pancreas: No pancreatic ductal dilation. Pancreatic divisum. Ectatic duct. No obstructing mass. Adrenals: No adrenal nodule. Kidneys and ureters: No hydronephrosis. No renal cystic lesion which requires follow up. No solid mas s. Symmetric enhancement. Single, punctate nonobstructing bilateral nephrolithiasis. Stomach, bowel and peritoneum: No bowel distension. No pathologic free fluid. Partial colectomy with surgical anastomosis in the deep pelvis. Moderate colonic stool load. Lymph nodes: No central or retroperitoneal adenopathy. Vessels: No infrarenal aortic aneurysm. PELVIS Reproductive organs: Dilated left gonadal vasculature. Bladder: No abnormal wall thickening, accounting for underdistention. Pelvic lymph nodes: No pelvic adenopathy by size criteria. Bones: No aggressive osseous abnormality. Degenerative disc disease, predominantly of the lumbar spin e. Other: No significant ventral or inguinal hernia. IMPRESSION: No acute abnormality. No CT evidence of pyelonephritis. Moderate colonic stool load. Dilated left gonadal vasculature, which can be seen in the clinical setting of pelvic congestion synd anne. Small burden of bilateral, punctate nonobstructing nephrolithiasis. Reviewed by: Damion Nunes MD on 09/20/2023 3:58 PM PDT Approved by: Damion Nunes MD on 09/20/2023 3:58 PM PDT Station ID: [id number]
[2023-09-20 16:40] VITALS: BP 153/94; O2SAT 100
== END 2023-09-20 16:55 | disposition home or self-care (01) ==
LOC: ED 12:19
DX: M54.50 Low back pain, unspecified (principal)
CPT/HCPCS: 36415; 74177; 80053; 81003; 83690; 85025; 96374; 99284; A9270; Q9967; 81001; 87086

== ENCOUNTER 2023-11-26 08:21 | Emergency (ER) | payer MEDICARE, OTHER ==
[2023-11-26 10:42] LABS: BILIRUBIN,URINE NEGATIVE (NEGATIVE); GLUCOSE, URINE (UA) NEGATIVE (NEGATIVE); KETONES,URINE (UA) NEGATIVE (NEGATIVE); LEUKOCYTE ESTERASE, URINE NEGATIVE (NEGATIVE); NITRITE,URINE NEGATIVE (NEGATIVE); OCCULT BLOOD,URINE SMALL (NEGATIVE); PH,URINE 6.5 PH (5.0-7.5); PROTEIN,URINE NEGATIVE (NEGATIVE); UROBILINOGEN,URINE 0.2 (NORMAL) E.U./dL (NORMAL)
[2023-11-26 10:44] LABS: CLARITY,URINE SL. CLOUDY (CLEAR)
[2023-11-26 10:56] LABS: BACTERIA,URINE Moderate /HPF (None Seen); SQUAMOUS EPITHELIAL CELL,UR RARE Squamous (<= Few)
--- NOTE | 2023-11-26 11:02 | ED Physician Documentation ---
PD HPI BACK PAIN - Stated complaint Stated Complaint: BACK PX - Chief complaint Chief Complaint: UTI - History obtained from History obtained from: Patient - Additional information Additional information: She has had about a week of right flank pain with urinary frequency and foul- smelling urine. No fevers. Says she gets about 5 UTIs a year. 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 : Chronic bladder infection HEENT: None Psych: Depression, Anxiety Musculoskeletal: Chronic back pain Derm: None - Past Surgical History Past Surgical History: Yes General: Bowel surgery - Present Medications Home Medications: Ambulatory Orders Medication Instructions Recorded Confirmed Gabapentin 300 mg PO QPM 03/03/17 11/26/23 Atorvastatin [Lipitor] 20 mg PO DAILY 09/18/21 11/26/23 Clopidogrel [Plavix] 75 mg PO DAILY 30 Days #30 tablet 07/17/22 11/26/23 Acetaminophen [Acetaminophen Extra 500 mg PO QID PRN #50 tablet 09/20/23 11/26/23 Strength] Meloxicam [Mobic] 7.5 mg PO BID 10 Days #20 tablet 09/20/23 11/26/23 Ciprofloxacin HCl [Cipro] 500 mg PO BID #20 tablet 11/26/23 HYDROcod/ACETAM 5/325 [[place] 5/325] 1 - 2 tab PO Q6H PRN #7 tablet 11/26/23 - Allergies Allergies/Adverse Reactions: Allergies Allergy/AdvReac Type Severity Reaction Status Date / Time sulfamethoxazole Allergy Rash Verified 11/26/23 09:08 [From Bactrim] trimethoprim [From Bactrim] Allergy Rash Verified 11/26/23 09:08 - Social History Does the pt smoke?: No Smoking Status: Former smoker Does the pt drink ETOH?: No Does the pt have substance abuse?: No - Immunizations Immunizations are current?: Yes - POLST Patient has POLST: Yes PD ED PE NORMAL - Vitals Vital signs reviewed: Yes - General General: Alert and oriented X 3, No acute distress - Abdomen Abdomen: Non tender, Other (She is tender over the left flank.) - Neuro Neuro: Alert and oriented X 3 Results - Vitals Vitals: Vital Signs - 24 hr 11/26/23 09:08 Temperature 36.2 C L Heart Rate 75 Respiratory 18 Rate Blood Pressure 137/73 H O2 Saturation 98 Oxygen O2 Source Room air - Labs Labs: Laboratory Tests 11/26/23 10:00 Urine Color YELLOW Urine Clarity SL. CLOUDY Urine pH 6.5 Ur Specific [place] 1.020 Urine Protein NEGATIVE Urine Glucose (UA) NEGATIVE Urine Ketones NEGATIVE Urine Occult Blood SMALL H Urine Nitrite NEGATIVE Urine Bilirubin NEGATIVE Urine Urobilinogen 0.2 (NORMAL) Ur Leukocyte Esterase NEGATIVE Urine RBC 6-10 H Urine WBC 6-10 H Ur Squamous Epith Cells RARE Squamous Urine Bacteria Moderate H Ur Microscopic Review INDICATED Urine Culture Comments NOT INDICATED PD Medical Decision Making - ED course ED course: Urinalysis is contaminated but symptoms very strongly point to UTI and will treat. Departure - Departure Disposition: 01 Home, Self Care Clinical Impression: Pyelonephritis Condition: Good Record reviewed to determine appropriate education?: Yes Instructions: Pyelonephritis Dc Prescriptions: Ciprofloxacin HCl [Cipro] 500 mg PO BID #20 tablet HYDROcod/ACETAM 5/325 [[place] 5/325] 1 - 2 tab PO Q6H PRN #7 tablet PRN Reason: Pain Comments: I sent your prescription electronically to the [facility] in [place]. Return if not improving over the next 3 days or so. Do follow-up with your primary care physician with discussion of referral to urogynecologist given frequency of UTIs.
[2023-11-26 11:08] VITALS: BP 141/69; O2SAT 100
== END 2023-11-26 11:08 | disposition home or self-care (01) ==
LOC: ED 08:21
DX: N12 Tubulo-interstitial nephritis, not specified as acute or chronic (principal); Z87.440 Personal history of urinary (tract) infections; Z87.891 Personal history of nicotine dependence; Z79.899 Other long term (current) drug therapy; Z79.02 Long term (current) use of antithrombotics/antiplatelets
CPT/HCPCS: 81001; 81003; 87086; 99283

== ENCOUNTER 2023-12-14 08:35 | Emergency (ER) | payer MEDICARE, OTHER ==
[2023-12-14 09:19] LABS: BILIRUBIN,URINE NEGATIVE (NEGATIVE); GLUCOSE, URINE (UA) NEGATIVE (NEGATIVE); KETONES,URINE (UA) NEGATIVE (NEGATIVE); LEUKOCYTE ESTERASE, URINE NEGATIVE (NEGATIVE); NITRITE,URINE NEGATIVE (NEGATIVE); OCCULT BLOOD,URINE SMALL (NEGATIVE); PROTEIN,URINE NEGATIVE (NEGATIVE); UROBILINOGEN,URINE 0.2 (NORMAL) E.U./dL (NORMAL)
[2023-12-14 09:21] LABS: CLARITY,URINE SL. CLOUDY (CLEAR)
[2023-12-14 09:33] LABS: BACTERIA,URINE Moderate /HPF (None Seen); SQUAMOUS EPITHELIAL CELL,UR MOD Squamous (<= Few)
[2023-12-14 09:34] LABS: AMORPHOUS SEDIMENT,UR Few /LPF; CRYSTALS,URINE 3-5 Calcium Oxalate /LPF
[2023-12-14 09:56] LABS: BASOPHILS # (AUTO) 0.1 10^3/uL (0.0-0.1); BASOPHILS % (AUTO) 0.9 %; EOSINOPHILS # (AUTO) 0.1 10^3/uL (0.0-0.7); EOSINOPHILS % (AUTO) 2.4 %; HCT - HEMATOCRIT 44.4 % (37.0-47.0); HGB - HEMOGLOBIN 14.2 g/dL (12.0-16.0); LYMPHOCYTES # (AUTO) 2.4 10^3/uL (1.5-3.5); LYMPHOCYTES % (AUTO) 40.9 %; MEAN CORPUSCULAR HEMOGLOBIN 29.3 pg (27.0-31.0); MEAN CORPUSCULAR VOLUME 91.7 fL (81.0-99.0); MONOCYTES # (AUTO) 0.5 10^3/uL (0.0-1.0); MONOCYTES % (AUTO) 9.1 %; NEUTROPHILS # (AUTO) 2.7 10^3/uL (1.5-6.6); NEUTROPHILS % (AUTO) 46.5 %; PLT - PLATELET COUNT 251 10^3/uL (130-450); RED BLOOD COUNT 4.84 10^6/uL (4.20-5.40); RED CELL DISTRIBUTION WIDTH 12.3 % (12.0-15.0); WHITE BLOOD COUNT 5.8 x10^3/uL (4.8-10.8)
[2023-12-14 10:16] LABS: ALBUMIN 4.4 g/dL (3.2-5.5); ALBUMIN/GLOBULIN RATIO 1.6 (1.0-2.2); BILIRUBIN,TOTAL 0.5 mg/dL (0.2-1.0); CALCIUM 9.8 mg/dL (8.5-10.3); CREATININE 0.6 mg/dL (0.6-1.3); POTASSIUM 3.8 mmol/L (3.5-4.5); TOTAL PROTEIN 7.1 g/dL (6.4-8.9)
[2023-12-14] MEDS: KETOROLAC 15 MG/ML VIAL IVP STA (10:44)
--- NOTE | 2023-12-14 10:45 | CT Report ---
PROCEDURE: Abdomen/Pelvis WO INDICATIONS: L flank pain/stones/UTI symptoms TECHNIQUE: A CT scan of the abdomen and pelvis was performed without the use of intravenous contrast. Images we re recorded and evaluated at appropriate window settings. Reformats: coronal and sagittal. For radiat ion dose reduction, the following was used: automated exposure control, adjustment of mA and/or kV ac cording to patient size. COMPARISON: None. FINDINGS: Image quality: Diagnostic. Lower chest: Small hiatal hernia. Liver: No contour-deforming mass. Gallbladder: Gallbladder sludge versus small stones. No wall thickening. Biliary tree: No intrahepatic or extrahepatic dilation, accounting for age. Spleen: No splenomegaly. Pancreas: No pancreatic ductal dilation. Adrenals: No adrenal nodule. Kidneys and ureters: Obstructing 3 to 4 mm stone in the distal left ureter (series 2, image 85), resu lting in mild hydronephrosis. Large burden of bilateral nonobstructing nephrolithiasis. Stomach, bowel and peritoneum: No gastric or small bowel dilation. No abnormal wall thickening. No pa thologic free fluid. Partial colectomy. Colonic diverticulosis without evidence of diverticulitis. Lymph nodes: No central or retroperitoneal adenopathy. Vessels: No infrarenal aortic aneurysm. Reproductive organs: Unremarkable. Bladder: Bladder wall thickness is normal, accounting for underdistention. No calcified bladder stone s. Pelvic lymph nodes: No adenopathy by size criteria. Bones: No aggressive osseous abnormality. Degenerative changes of the spine. Degenerative grade 1 ant erolisthesis of L4 on L5 secondary to facet arthrosis. Bone island in the left pubic ramus by Hounsfi eld units criteria. Other: No significant ventral or inguinal hernia. IMPRESSION: Obstructing 3 to 4 mm stone in the distal left ureter, resulting in mild hydronephrosis. Reviewed by: Damion Nunes MD on 12/14/2023 10:44 AM PDT Approved by: Damion Nunes MD on 12/14/2023 10:44 AM PDT Station ID: [id number]
--- NOTE | 2023-12-14 11:13 | ED Physician Documentation ---
PD HPI ABD PAIN - Stated complaint Stated Complaint: - Chief complaint Chief Complaint: Abd Pain - History obtained from History obtained from: Patient - Additional information Additional information: Patient is a 73-year-old female presenting for evaluation of left flank pain with foul-smelling urine for the past few days. Patient has recently had several UTIs and finished antibiotics on Sunday. She also had an outpatient CT scan done by her PCP that showed bilateral nephrolithiasis.She denies fever, abdominal pain, vomiting. 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 : Chronic bladder infection HEENT: None Psych: Depression, Anxiety Musculoskeletal: Chronic back pain Derm: None - Past Surgical History Past Surgical History: Yes General: Bowel surgery - Present Medications Home Medications: Ambulatory Orders Medication Instructions Recorded Confirmed Gabapentin 300 mg PO QPM 03/03/17 12/14/23 Atorvastatin [Lipitor] 20 mg PO DAILY 09/18/21 12/14/23 Clopidogrel [Plavix] 75 mg PO DAILY 30 Days #30 tablet 07/17/22 12/14/23 Meloxicam [Mobic] 7.5 mg PO BID 10 Days #20 tablet 09/20/23 12/14/23 Ciprofloxacin HCl [Cipro] 500 mg PO BID #20 tablet 11/26/23 12/14/23 Amitriptyline [Elavil] 25 mg PO HS 12/14/23 12/14/23 Cefpodoxime Proxetil [Vantin] 100 mg PO Q12H #14 tablet 12/14/23 HYDROcod/ACETAM 5/325 [[place] 5/325] 1 tablet PO Q6H PRN #14 tablet 12/14/23 Ondansetron Odt [Zofran] 4 mg TL Q6H PRN #10 tablet 12/14/23 Tamsulosin [Flomax] 0.4 mg PO DAILY #14 cap 12/14/23 - Allergies Allergies/Adverse Reactions: Allergies Allergy/AdvReac Type Severity Reaction Status Date / Time sulfamethoxazole Allergy Rash Verified 12/14/23 08:38 [From Bactrim] trimethoprim [From Bactrim] Allergy Rash Verified 12/14/23 08:38 - Social History Does the pt smoke?: No Smoking Status: Never smoker Does the pt drink ETOH?: No Does the pt have substance abuse?: No - Immunizations Immunizations are current?: Yes - POLST Patient has POLST: Yes PD ED PE NORMAL - General General: Alert and oriented X 3, No acute distress, Well developed/nourished - HEENT HEENT: Atraumatic - Neck Neck: Supple, no meningeal sign - Cardiac Cardiac: RRR, Strong equal pulses - Respiratory Respiratory: No respiratory distress, Clear bilaterally - Abdomen Abdomen: Normal bowel sounds, Soft, Non tender, Non distended - Back Back: Other (Left CVA tenderness) - Derm Derm: Warm and dry Results - Vitals Vitals: Vital Signs - 24 hr 12/14/23 12/14/23 12/14/23 08:38 09:56 11:20 Temperature 36.4 C L 36.5 C Heart Rate 91 79 80 Respiratory 16 15 17 Rate Blood Pressure 146/91 H 135/88 H 137/97 H O2 Saturation 99 96 98 Oxygen O2 Source Room air - Labs Labs: Laboratory Tests 12/14/23 12/14/23 12/14/23 08:44 09:50 09:50 WBC 5.8 RBC 4.84 Hgb 14.2 Hct 44.4 MCV 91.7 MCH 29.3 MCHC 32.0 RDW 12.3 Plt Count 251 MPV 9.0 Neut # (Auto) 2.7 Lymph # (Auto) 2.4 [place] # (Auto) 0.5 Eos # (Auto) 0.1 Baso # (Auto) 0.1 Absolute Nucleated RBC 0.00 Nucleated RBC % 0.0 Sodium 138 Potassium 3.8 Chloride 106 Carbon Dioxide 27 Anion Gap 5.0 L BUN 20 Creatinine 0.6 Estimated GFR (MDRD) 98 Glucose 97 Calcium 9.8 Total Bilirubin 0.5 AST 16 ALT 12 Alkaline Phosphatase 95 Total Protein 7.1 Albumin 4.4 Globulin 2.7 Albumin/Globulin Ratio 1.6 Lipase 33 Urine Color YELLOW Urine Clarity SL. CLOUDY Urine pH 6.0 Ur Specific [place] 1.015 Urine Protein NEGATIVE Urine Glucose (UA) NEGATIVE Urine Ketones NEGATIVE Urine Occult Blood SMALL H Urine Nitrite NEGATIVE Urine Bilirubin NEGATIVE Urine Urobilinogen 0.2 (NORMAL) Ur Leukocyte Esterase NEGATIVE Urine RBC 6-10 H Urine WBC 4-5 Ur Squamous Epith Cells MOD Squamous H Urine Crystals 3-5 Calcium Oxalate Amorphous Sediment Few Urine Bacteria Moderate H Ur Microscopic Review INDICATED Urine Culture Comments NOT INDICATED PD Medical Decision Making - ED course Complexity details: reviewed results, re-evaluated patient, d/w patient, d/w marketing consultant ED course: Patient is a 73-year-old female presenting for evaluation of left flank pain along with foul-smelling urine for the past few days. Afebrile with stable vital signs and benign abdominal exam. Urinalysis has some markers for infection. She did just complete a course of antibiotics for UTI and also recently was found to have nephrolithiasis. Labs including CBC and chemistries were reviewed. CT scan of the abdomen and pelvis was obtained which demonstrates a distal left ureter stone. There is mild associated hydronephrosis. Discussed with on-call urologist who agrees with plan for antibiotics as well as outpatient follow-up. Patient's pain is controlled here with IV Toradol. She is counseled regarding her diagnosis, need for follow-up as well as concerning symptoms to return for. 1101 - Discussed with Dr. Peraza, urology. Agrees with plan to treat with antibiotics given the presence of the stone. Patient can be discharged and have follow-up with him. Recommends Flomax as well. Departure - Departure Disposition: 01 Home, Self Care Clinical Impression: Left ureteral calculus, UTI (urinary tract infection) Condition: Stable Instructions: ED UTI Cystitis Female, ED Stone Renal W Colic Follow-Up: Boo Peraza MD [Provider Admit Priv/Credential] - Within 1 week Prescriptions: Tamsulosin [Flomax] 0.4 mg PO DAILY #14 cap HYDROcod/ACETAM 5/325 [[place] 5/325] 1 tablet PO Q6H PRN #14 tablet PRN Reason: Pain Cefpodoxime Proxetil [Vantin] 100 mg PO Q12H #14 tablet Ondansetron Odt [Zofran] 4 mg TL Q6H PRN #10 tablet PRN Reason: Nausea / Vomiting Comments: You are passing a kidney stone on the left side which is causing your increased pain. I have sent prescriptions to [facility] to help you with passing the stone as well as to treat an infection and to help you with pain. You should also have follow-up with Dr. Peraza who is our local urologist. Return to the ER with any worsening symptoms such as increased pain, fever. You should also take a stool softener as the narcotic pain medicine can make you constipated. I am prescribing a short course of narcotic pain medication for you. These are potentially dangerous and addictive medications that should be used carefully. These medications may constipate you. Take an mkdc-vgj-[id number] stool softener (docusate) twice daily with plenty of water while taking these medications. If you go 24 hours without a bowel movement, take hmro-[id number]-[id number] miralax, per package instructions. Do not drink or drive while taking these medications. If you received narcotic or sedating medications while in the emergency department, do not drive for 24 hours. Store this medication in a safe, secure place and out of reach of children. It is a violation of federal law to give or sell this medication to another person or to use in a manner other than prescribed. The ED will not refill narcotic prescriptions, including prescriptions lost or stolen. To dispose of unwanted medications: 1. [facility] [address] in [place] has a medication drop box. They accept prescription medications (in pill form) Sunday through Sunday 9:00 a.m. to 5:00 p.m. 2. The [facility] [employer] accepts prescription medications (in pill form only) for disposal year round. Call for more information. 3. Contact the [facility] for the next [facility] sponsored prescription drug collection event. , [phone], or [phone]; Note that many narcotic pain relievers also contain Tylenol/acetaminophen. Please ensure that your total dose of acetaminophen from all sources does not exceed 3 g (3000 mg) per day. Forms: PCP List Discharge Date/Time: 12/14/23 11:22
[2023-12-14 11:24] VITALS: BP 137/97; O2SAT 98
== END 2023-12-14 11:22 | disposition home or self-care (01) ==
LOC: ED 08:35
DX: N39.0 Urinary tract infection, site not specified (principal); N13.2 Hydronephrosis with renal and ureteral calculous obstruction
CPT/HCPCS: 36415; 80053; 81001; 81003; 83690; 85025; 87086; 99283; 99284

== ENCOUNTER 2024-01-03 08:00 | Outpatient (CLI) | payer MEDICARE, OTHER | END 2024-01-03 23:59 | disposition home or self-care (01) | LOC: LAB 08:00 | PROVIDERS: ATTEND Urology | DX: R30.0 Dysuria (principal) | CPT/HCPCS: 87077; 87086 ==

== ENCOUNTER 2024-01-16 08:07 | Emergency (ER) | payer MEDICARE, OTHER ==
[2024-01-16 08:34] LABS: BASOPHILS % (AUTO) 0.7 %; EOSINOPHILS # (AUTO) 0.2 10^3/uL (0.0-0.7); EOSINOPHILS % (AUTO) 3.7 %; HCT - HEMATOCRIT 44.3 % (37.0-47.0); HGB - HEMOGLOBIN 13.9 g/dL (12.0-16.0); LYMPHOCYTES % (AUTO) 34.3 %; MEAN CORPUSCULAR HEMOGLOBIN 29.1 pg (27.0-31.0); MEAN CORPUSCULAR HGB CONC 31.4 g/dL (32.0-36.0); MEAN CORPUSCULAR VOLUME 92.7 fL (81.0-99.0); MEAN PLATELET VOLUME 8.8 fL (7.9-10.8); MONOCYTES # (AUTO) 0.6 10^3/uL (0.0-1.0); MONOCYTES % (AUTO) 9.9 %; NEUTROPHILS % (AUTO) 51.1 %; PLT - PLATELET COUNT 248 10^3/uL (130-450); RED BLOOD COUNT 4.78 10^6/uL (4.20-5.40); RED CELL DISTRIBUTION WIDTH 12.7 % (12.0-15.0)
[2024-01-16 08:46] LABS: ALBUMIN 4.2 g/dL (3.2-5.5); ALBUMIN/GLOBULIN RATIO 1.7 (1.0-2.2); BILIRUBIN,TOTAL 0.7 mg/dL (0.2-1.0); CALCIUM 9.5 mg/dL (8.5-10.3); CREATININE 0.7 mg/dL (0.6-1.3); POTASSIUM 3.3 mmol/L (3.5-4.5); TOTAL PROTEIN 6.7 g/dL (6.4-8.9)
--- NOTE | 2024-01-16 08:49 | ED Physician Documentation ---
PD HPI ABD PAIN - Stated complaint Stated Complaint: LOWER LT ABD PX - Chief complaint Chief Complaint: Abd Pain - History obtained from History obtained from: Patient - History of Present Illness Timing - onset: How many weeks ago (4-5) Timing - details: Abrupt onset, Waxing and waning (pain had been mild for few weeks, on pain meds and tylenol. Did not go away at all during the past month. Much increased the past 1-2 days. Same location and character but worse severity. Has appt with Urology in 2 days due to prolonged time for passage of stone Dx on CT 3-4 mm distal left ureter.) Review of Systems Constitutional: denies: Fever, Chills Cardiac: denies: Chest pain / pressure GI: reports: Abdominal Pain, Nausea. 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 : Chronic bladder infection, Kidney stones HEENT: None Psych: Depression, Anxiety Musculoskeletal: Chronic back pain Derm: None - Past Surgical History Past Surgical History: Yes General: Bowel surgery - Present Medications Home Medications: Ambulatory Orders Medication Instructions Recorded Confirmed Gabapentin 300 mg PO QPM 03/03/17 01/16/24 Atorvastatin [Lipitor] 20 mg PO DAILY 09/18/21 01/16/24 Clopidogrel [Plavix] 75 mg PO DAILY 30 Days #30 tablet 07/17/22 01/16/24 Meloxicam [Mobic] 7.5 mg PO BID 10 Days #20 tablet 09/20/23 01/16/24 Ciprofloxacin HCl [Cipro] 500 mg PO BID #20 tablet 11/26/23 01/16/24 Amitriptyline [Elavil] 25 mg PO HS 12/14/23 01/16/24 Cefpodoxime Proxetil [Vantin] 100 mg PO Q12H #14 tablet 12/14/23 01/16/24 HYDROcod/ACETAM 5/325 [[place] 5/325] 1 tablet PO Q6H PRN #14 tablet 12/14/23 01/16/24 Ondansetron Odt [Zofran] 4 mg TL Q6H PRN #10 tablet 12/14/23 01/16/24 Tamsulosin [Flomax] 0.4 mg PO DAILY #14 cap 12/14/23 01/16/24 Meloxicam [Mobic] 7.5 mg PO BID 10 Days #20 tablet 01/16/24 Ondansetron Odt [Zofran] 4 mg TL Q6H PRN #10 tablet 01/16/24 Oxycodone HCl/Acetaminophen 1 each PO Q6H PRN #20 tablet 01/16/24 [Percocet 5-325 mg Tablet] Tamsulosin [Flomax] 0.4 mg PO DAILY #5 cap 01/16/24 - Allergies Allergies/Adverse Reactions: Allergies Allergy/AdvReac Type Severity Reaction Status Date / Time sulfamethoxazole Allergy Rash Verified 01/16/24 08:15 [From Bactrim] trimethoprim [From Bactrim] Allergy Rash Verified 01/16/24 08:15 - Social History Does the pt smoke?: No Smoking Status: Former smoker Does the pt drink ETOH?: No Does the pt have substance abuse?: No - Immunizations Immunizations are current?: Yes - POLST Patient has POLST: Yes PD ED PE NORMAL - Vitals Vital signs reviewed: Yes - General General: Alert and oriented X 3, Well developed/nourished - Abdomen Abdomen: Soft, Non tender - Back Back: Other (moderate tender left CVA area to percussion. ) - Derm Derm: Normal color, Warm and dry Results - Vitals Vitals: Oxygen O2 Source Room air - Labs Labs: Laboratory Tests 01/16/24 01/16/24 01/16/24 08:28 08:28 09:00 WBC 6.0 RBC 4.78 Hgb 13.9 Hct 44.3 MCV 92.7 MCH 29.1 MCHC 31.4 L RDW 12.7 Plt Count 248 MPV 8.8 Neut # (Auto) 3.0 Lymph # (Auto) 2.0 [place] # (Auto) 0.6 Eos # (Auto) 0.2 Baso # (Auto) 0.0 Absolute Nucleated RBC 0.00 Nucleated RBC % 0.0 Sodium 139 Potassium 3.3 L Chloride 106 Carbon Dioxide 28 Anion Gap 5.0 L BUN 22 H Creatinine 0.7 Estimated GFR (MDRD) 82 L Glucose 104 Calcium 9.5 Total Bilirubin 0.7 AST 14 ALT 10 Alkaline Phosphatase 101 Total Protein 6.7 Albumin 4.2 Globulin 2.5 Albumin/Globulin Ratio 1.7 Lipase 37 Urine Color YELLOW Urine Clarity HAZY Urine pH 6.0 Ur Specific [place] 1.020 Urine Protein NEGATIVE Urine Glucose (UA) NEGATIVE Urine Ketones NEGATIVE Urine Occult Blood LARGE H Urine Nitrite NEGATIVE Urine Bilirubin NEGATIVE Urine Urobilinogen 0.2 (NORMAL) Ur Leukocyte Esterase NEGATIVE Urine RBC 11-25 H Urine WBC 0-3 Ur Squamous Epith Cells FEW Squamous Urine Bacteria Moderate H Ur Microscopic Review INDICATED Urine Culture Comments NOT INDICATED PD Medical Decision Making - ED course Complexity details: reviewed old records (prior CT a month ago showed 3-4 mm stone distal left ureter. Given low location and smaller size, I did not see need for repeat CT. Got US to eval for degree of blockage and only mild hydro. UA without infection. renal function good. Pain improved. Can have f/u 2 days.), re-evaluated patient (pain moderately improved after first doses of Toradol and DIlaudid. Considerably improved with more dilaudid and also lido for renal stone dosing. ), d/w environmental remediation consultant (Urology - discussed current findings/status. To continue with plan of appt in 2 days. Rx meds for pain/tamsulosin, etc. This is reasonable given no hydro, signs infection and pain improvable. ) Departure - Departure Disposition: 01 Home, Self Care Clinical Impression: Left sided abdominal pain, Ureterolithiasis Condition: Stable Record reviewed to determine appropriate education?: Yes Instructions: ED Stone Renal W Colic Follow-Up: Boo Peraza MD [Provider Admit Priv/Credential] - POLO OAKES DO [Primary Care Provider] - Prescriptions: Tamsulosin [Flomax] 0.4 mg PO DAILY #5 cap Meloxicam [Mobic] 7.5 mg PO BID 10 Days #20 tablet Oxycodone HCl/Acetaminophen [Percocet 5-325 mg Tablet] 1 each PO Q6H PRN #20 tablet PRN Reason: pain Ondansetron Odt [Zofran] 4 mg TL Q6H PRN #10 tablet PRN Reason: Nausea / Vomiting Comments: Keep well-hydrated. Your ultrasound did not show any swelling of the kidney so there does not appear to be any notable back pressuring from the stone. Your kidney function is still good. Your urine does not show any signs of infection. I did talk with the urologist. At this point there is not a necessarily need for emergent or urgent intervention. He would still have you see him Sunday as planned with obviously adding improved pain medication regimen. It has been a month so without passing the stone though and so it may be that it needs retrieval. They could potentially schedule you for a procedure like that for early next week. I did prescribe a combination of anti-inflammatory and antispasmodic for the ureter and then add in oxycodone if needed for worse pain. I sent these prescriptions to your preferred pharmacy. Return to the ER if severe pain despite the medications as that could change the thought process for intervention. I am prescribing a short course of narcotic pain medication for you. These are potentially dangerous and addictive medications that should be used carefully. These medications may constipate you. Take an krxc-uos-[id number] stool softener such as docusate twice daily with plenty of water while taking these medications. If you go 24 hours without a bowel movement, take skqi-rcl-ojtfgbl MiraLAX, per package instructions. Do not drink or drive while taking these medications. If you received narcotic or sedating medications while in the emergency department do not drive for 24 hours. Store this medication in a safe, secure place and out of reach of children. It is a violation of federal law to give or sell this medication to another person or to use in a manner other than prescribed. The ED will not refill narcotic prescriptions, including prescriptions lost or stolen. You can dispose of unwanted medications at the [facility]'s office or at several pharmacies such as [facility]. Forms: PCP List Discharge Date/Time: 01/16/24 12:00
[2024-01-16] MEDS: SODIUM CHLORIDE 0.9% 1,000 ML IV STA (09:33)
[2024-01-16] MEDS: HYDROmorphone 1 MG/ML CARPUJECT IVP STA ×2 (09:34→10:51)
[2024-01-16] MEDS: KETOROLAC 15 MG/ML VIAL IVP STA (09:34)
[2024-01-16] MEDS: TAMSULOSIN 0.4 MG CAPSULE PO STA (09:34)
[2024-01-16 09:35] LABS: BILIRUBIN,URINE NEGATIVE (NEGATIVE); GLUCOSE, URINE (UA) NEGATIVE (NEGATIVE); KETONES,URINE (UA) NEGATIVE (NEGATIVE); LEUKOCYTE ESTERASE, URINE NEGATIVE (NEGATIVE); NITRITE,URINE NEGATIVE (NEGATIVE); OCCULT BLOOD,URINE LARGE (NEGATIVE); PROTEIN,URINE NEGATIVE (NEGATIVE); UROBILINOGEN,URINE 0.2 (NORMAL) E.U./dL (NORMAL)
[2024-01-16 09:39] LABS: CLARITY,URINE HAZY (CLEAR)
[2024-01-16 09:49] LABS: BACTERIA,URINE Moderate /HPF (None Seen); SQUAMOUS EPITHELIAL CELL,UR FEW Squamous (<= Few)
[2024-01-16 09:51] LABS: WBC,URINE 0-3 /HPF (0-5)
[2024-01-16] MEDS: LIDOCAINE-MPF 2% 5 ML in SODIUM CHLORIDE 0.9% 50 ML IV STA (11:14)
--- NOTE | 2024-01-16 11:44 | Ultrasound Report ---
PROCEDURE: Renal Ltd (Retroperitoneal Ltd INDICATIONS: ureterolithiasis, assess hydro TECHNIQUE: Real-time scanning was performed of the retroperitoneal organs, with image documentation. COMPARISON: None. FINDINGS: Left kidney measures 10.1 cm without hydronephrosis. Nonobstructing 8 mm calculus within the interpol ar kidney is present. IMPRESSION: 1. Nonobstructing left renal calculus. Reviewed by: Bruno Haddad MD on 01/16/2024 11:43 AM PDT Approved by: Bruno Haddad MD on 01/16/2024 11:43 AM PDT Station ID: [id number]
[2024-01-16 12:38] VITALS: BP 118/80; O2SAT 98
== END 2024-01-16 12:00 | disposition home or self-care (01) ==
LOC: ED 08:07
DX: N13.2 Hydronephrosis with renal and ureteral calculous obstruction (principal)
CPT/HCPCS: 36415; 76775; 80053; 81001; 83690; 85025; 96365; 96375; 96376; 99284; A9270; J1170; J7040; 81003; 87086

== ENCOUNTER 2024-01-28 07:54 | Day surgery (SDC) | payer MEDICARE, OTHER ==
[~2024-01-28 07:54] MED LIST: ceFAZolin 2 GM VIAL ONE
[2024-01-28] MEDS: LACTATED RINGERS 1,000 ML IV ONE ×2 (08:02→11:13)
--- NOTE | 2024-01-28 08:58 | ANESTHESIA ---
Pre-Anesthesia VS, & Labs - Diagnosis left ureteral stone - Procedure cysto, ureteroscopy, laser litho, stent Vital Signs: Temp Pulse Resp BP Pulse Ox O2 Flow Rate 36.1 C L 82 14 137/92 H 96 01/28/24 08:06 01/28/24 08:06 01/28/24 08:06 01/28/24 08:06 01/28/24 08:06 Height: 5 ft 7 in Weight (kg): 65.5 kg Body Mass Index: 22.6 BMI Classification: Normal - NPO >8 hours - Is Patient ?: No - Lab Results Lab results reviewed: Yes Home Medications and Allergies Home Medications: Ambulatory Orders Levothyroxine Sodium [Synthroid] 25 mcg PO DAILY 01/21/24 estradioL vaginal [Estrace vaginal] 1 drp VG PRN PRN 01/21/24 Gabapentin 300 mg PO QPM 03/03/17 Atorvastatin [Lipitor] 20 mg PO DAILY 09/18/21 Amitriptyline [Elavil] 25 mg PO HS 12/14/23 Levothyroxine Sodium [Synthroid] 25 mcg PO DAILY 01/21/24 estradioL vaginal [Estrace vaginal] 1 drp VG PRN PRN 01/21/24 Allergies/Adverse Reactions: Allergies Allergy/AdvReac Type Severity Reaction Status Date / Time sulfamethoxazole Allergy Rash Verified 01/28/24 08:15 [From Bactrim] trimethoprim [From Bactrim] Allergy Rash Verified 01/28/24 08:15 Anes History & Medical History - Anesthetic History Anesthesia Complications: reports: No previous complications - Medical History Cardiovascular: reports: High cholesterol (denies mi, c/p, sob, arrhythmia) Pulmonary: reports: None Gastrointestinal: reports: C.difficile, Diverticulitis Urinary: reports: Chronic bladder infection, Kidney stones Neuro: reports: CVA (takes plavix; had it last night) Musculoskeletal: reports: Chronic back pain Endocrine/Autoimmune: reports: None Blood Disorders: reports: None Skin: reports: None Smoking Status: Former smoker - Surgical History General: reports: Bowel surgery Results - EKG Results EKG Comparison: Reviewed EKG Exam General: Alert Dental: WNL Mouth Openin Fingerbreadth Neck Mobility: Normal Mallampati classification: II Thyromental Distance: 4-6 cm Respiratory: Lungs clear Cardiovascular: Regular rate Plan Anesthesia Type: General Consent for Procedure(s) Verified and Reviewed: Yes Code Status: Attempt Resuscitation ASA classification: 2-Mild systemic disease Is this case an emergency?: No
[2024-01-28] MEDS ORDERED: HYDROmorphone 0.5 MG/0.5 ML SYRINGE IVP PRN (08:59)
[2024-01-28] MEDS ORDERED: fentaNYL 100 MCG/2 ML VIAL IVP PRN (08:59)
[2024-01-28] MEDS ORDERED: METOCLOPRAMIDE 10 MG/2 ML VIAL IVP PRN (08:59)
[2024-01-28] MEDS ORDERED: ONDANSETRON 4 MG/2 ML VIAL IVP PRN ×2 (08:59→11:15)
[2024-01-28] MEDS ORDERED: ATROPINE ABBOJECT 1 MG/10 ML SYRINGE IVP PRN (08:59)
[2024-01-28] MEDS ORDERED: NALOXONE 0.4 MG/ML VIAL IVP PRN (08:59)
[2024-01-28] MEDS ORDERED: MORPHINE 2 MG/ML CARPUJECT IVP PRN (08:59)
[2024-01-28] MEDS ORDERED: ePHEDrine 50 MG/ML VIAL IVP PRN (08:59)
[2024-01-28] MEDS ORDERED: LACTATED RINGERS 1,000 ML IV SCH (09:00)
[2024-01-28] MEDS ORDERED: MIDAZOLAM 2 MG/2 ML VIAL ONE (10:04)
[2024-01-28] MEDS ORDERED: fentaNYL 100 MCG/2 ML VIAL ONE (10:04)
[2024-01-28] MEDS ORDERED: PROPOFOL 200 MG/20 ML VIAL IVP ONE (10:05)
[2024-01-28] MEDS ORDERED: LIDOCAINE-PF 2% 10 ML AMP SUBQ ONE (10:05)
[2024-01-28] MEDS ORDERED: iohexoL-240 10 ML VIAL IVP ONE (10:06)
[2024-01-28] MEDS ORDERED: LIDOCAINE 2% URO-JET 5 ML SYRINGE UR ONE (10:06)
[2024-01-28] MEDS ORDERED: ONDANSETRON 4 MG/2 ML VIAL ONE (10:44)
[2024-01-28] MEDS ORDERED: DEXAMETHASONE 4 MG/ML VIAL ONE (10:44)
[2024-01-28] MEDS ORDERED: PHENYLEPHRINE HCL 0.5 MG/5 ML AMPULE ONE (10:53)
[2024-01-28] MEDS: LIDOCAINE 2% URO-JET 5 ML SYRINGE UR ONE (10:59)
[2024-01-28] MEDS ORDERED: HYDROcod/ACETAM 5/325 MG TABLET PO PRN (11:15)
--- NOTE | 2024-01-28 11:22 | Discharge Plan ---
Discharge Plan Problem Reviewed?: Yes Disposition: Home, Self Care Condition: Good Prescriptions: Docusate Sodium 100Mg Capsule [Colace 100Mg Capsule] 100 mg PO DAILY #14 cap cephALEXin [Keflex] 500 mg PO ONCE #1 cap oxyCODONE [Roxicodone] 5 mg PO Q4H PRN #6 tablet PRN Reason: Pain Diet: Regular Activity Restrictions: No Restrictions Shower Restrictions: No Driving Restrictions: No Instruction Topics: Stents Ureteral Additional Instructions or Follow Up instructions: You will be contacted for follow-up late next week for cystoscopy and stent removal in the office. You can eat before this and you can take all your normal medications before this. You can drive yourself to this appointment. Please take your antibiotic as prescribed on the way to that appointment No Smoking: If you smoke, Please STOP! Call for help.
--- NOTE | 2024-01-28 11:27 | OPERATIVE REPORT ---
Operative Report - General Procedure Date: 01/28/24 Planned Procedure: Cystoscopy, left ureteroscopy, laser lithotripsy, stent Pre-Op Diagnosis: left ureteral stone Procedure Performed: Cystoscopy, left ureteroscopy, laser lithotripsy, stent Post Op Diagnosis: left ureteral stone - Procedure Note Primary Surgeon: Stu Anesthesia Provider: MARCUS Vila Anesthesia Technique: General LMA Pathology: none Estimated Blood Loss (mL): 0 Findings: left distal UVJ narrowing 4mm crystalline yellow stone dusted Complications: none - Other Other Information/Narrative: After informed sent was obtained the patient was brought to the OR and laid in the supine position. The patient was anesthetized per anesthesia protocols and prepped and draped in the usual sterile fashion In the dorsolithotomy position. A formal timeout was performed reconfirmed the patient, procedure and laterality. A 22 [place] cystoscope was advanced easily into urinary bladder. Bladder was inspected and full and there were no masses, lesions or other concerns. 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 Her left UVJ was identified and a sensor wire was tempted to be placed into it. Approximately 2 cm proximal to the UVJ there was resistance and it was difficult to pass the sensor wire. Her bladder was emptied and a short semirigid ureteroscope was advanced up the left UVJ which was quite narrow until we could see that there was a stone which was yellow and crystalline 4 mm in size. We then were able to place sensor wire past the stone up into the kidney. Using the ureteroscope we used a 200 m laser fiber at a rate of 8 and a power of 0.8 we dusted the stone into small fragments and dust. We then placed a 6 [place] 26 cm double-J ureteral stent with good curling in the kidney and good curling in the bladder under fluoroscopic and cystoscopic guidance. We emptied her bladder and placed a Uro- Jet. This concluded the procedure and the patient tolerated well. I will keep a stent in place for about a week and take it out in the office. All counts were correct
--- NOTE | 2024-01-28 11:45 | ANESTHESIA POST OP EVALUATION ---
Anesthesia Post Eval - Post Anesthesia Eval Vitals: Last Vital Signs Temp 36.1 C L 01/28/24 11:41 Pulse 66 01/28/24 11:41 Resp 15 01/28/24 11:41 BP 130/83 H 01/28/24 11:41 Pulse Ox 95 01/28/24 11:41 O2 Flow Rate CV Function Including HR & BP: Stable Pain Control: Satisfactory Nausea & Vomiting: Negative Mental Status: Baseline Respiratory Status: Airway Patent Hydration Status: Satisfactory Anesthesia Complications: None
[2024-01-28 12:26] VITALS: BP 136/79; O2SAT 98
--- NOTE | 2024-01-29 16:35 | XRAY Report ---
PROCEDURE: OR C-Arm Procedure INDICATIONS: CYSTOSCOPY FLUORO TIME: 000.1 TECHNIQUE: Single intraoperative fluoroscopic image COMPARISON: None. FINDINGS: Single intraoperative fluoroscopic image of double-J ureteral stent projects over the left flank. IMPRESSION: Single intraoperative fluoroscopic image of double-J ureteral stent. Please see operative report for details. Reviewed by: Wolf Rodrigues MD on 01/29/2024 4:34 PM PDT Approved by: Wolf Rodrigues MD on 01/29/2024 4:34 PM PDT Station ID: [id number]
== END 2024-01-28 07:55 | disposition home or self-care (01) ==
LOC: SDS 07:54
PROVIDERS: ATTEND Urology
PROC: 0T778DZ Dilation of Left Ureter with Intraluminal Device, Via Natural or Artificial Opening Endoscopic (ICD-10-PCS; 2024-01-28)
PROC: 0TF78ZZ Fragmentation in Left Ureter, Via Natural or Artificial Opening Endoscopic (ICD-10-PCS; principal; 2024-01-28 09:30)
DX: N20.1 Calculus of ureter (principal); N81.0 Urethrocele; Z79.02 Long term (current) use of antithrombotics/antiplatelets; Z86.73 Personal history of transient ischemic attack (TIA), and cerebral infarction without residual deficits
CPT/HCPCS: 52356; C1758; C2617; J2372; J7120; Q9966